=== PATIENT | female | born 1960 | race African-American/Black ===

== ENCOUNTER 2018-01-09 19:36 | Inpatient (IN) | payer MEDICARE, MEDICAID ==
[~2018-01-09] VITALS: Ht 162.6 cm; Wt 67.6 kg
[~2018-01-09 19:36] MED LIST: Fluticasone Propionate BOTHNSTRLS; LIDO700A TP; Lidocaine Cream TOP; MONT5TAB13 PO
[2018-01-09] MEDS ORDERED: IPRATROPIUM BROMIDE (0.02%) 0.5MG/2.5ML NEB HHN STA (19:40)
[2018-01-09] MEDS ORDERED: ALBUTEROL (0.083%) 2.5MG/3ML NEB HHN STA (19:40)
[2018-01-09] MEDS ORDERED: METHYLPREDNISOLONE SOD SUCC 125 MG/2 ML VIAL IV STA (19:40)
[2018-01-09] MEDS ORDERED: IPRATROPIUM BROMIDE (0.02%) 0.5MG/2.5ML NEB ONE (19:48)
[2018-01-09] MEDS ORDERED: IPRATROPIUM/ALBUTEROL 0.5-3(2.5)MG/3ML NEB ONE (19:49)
[2018-01-09] MEDS ORDERED: ONDANSETRON HCL 4MG/2ML INJ IV STA (20:06)
[2018-01-09] MEDS ORDERED: MORPHINE SULFATE 4 MG/ML CPJ (NOT FOR IM USE) IV STA (20:06)
[2018-01-09] MEDS ORDERED: NITROGLYCERIN 0.4MG TABLET SL SL PRN (20:15)
[2018-01-09] MEDS ORDERED: MAGNESIUM 2 G PREMIX 50 ML IV ONE (20:15)
[2018-01-09] MEDS ORDERED: NITROGLYCERIN OINT 1GM/INCH UDPKT TD ONE (20:15)
[2018-01-09 20:18] LABS: HEMATOCRIT. 44.9 % (36.0-48.0); HEMOGLOBIN. 14.6 g/dL (12.0-16.0); MEAN CORPUSCULAR VOLUME 92.3 fL (81.0-99.0); MEAN PLATELET VOLUME 6.5 fl (7.4-10.4); PLATELET 324 x1000/uL (130-400); RED BLOOD CELL COUNT 4.87 mill/uL (4.2-5.4); RED CELL DISTRIBUTION WIDTH 16.4 % (11.6-14.6)
[2018-01-09 20:27] LABS: CHLORIDE 95 mEq/L (98-107)
[2018-01-09 20:51] LABS: PLATELET ESTIMATE NORMAL
[2018-01-09] MEDS ORDERED: PIPERACILLIN/TAZ 3.375G PREMIX 50 ML IV NR (21:30)
[2018-01-09] MEDS ORDERED: PIPERACILLIN/TAZOBACTAM 3.375GM/50ML PREMIX IV ONE (21:30)
[2018-01-09 21:34] LABS: BG BASE EXCESS 0.8 mmol/L (-2.0-2.0); BG BILEVEL POS AIRWAY PRESSURE 18/7; BG CARBOXYHEMOGLOBIN 0.6 % (0.5-1.5); BG DEOXYHEMOGLOBIN 0.1 % (0.0-5.0); BG FRACTION INSPIRED OXYGEN 100; BG HCO3 ACT 31.4 mmol/L (22.0-26.0); BG METHEMOGLOBIN 0.7 % (0.0-1.5); BG OXYGEN SATURATION 99.9 % (92.0-98.5); BG OXYHEMOGLOBIN 98.6 % (94.0-97.0); BG PCO2 80.6 mmHg (35.0-45.0); BG PH 7.209 (7.350-7.450); BG PO2 574.5 mmHg (75.0-100.0); BG SAMPLE SITE RIGHT BRACHIAL; BG TOTAL HEMOGLOBIN 15.4 g/dL (12.0-18.0); BG VENT MODE MASK - BIPAP; BG VENT RATE 20 set
[2018-01-09] MEDS ORDERED: HYDROCODONE/ACETAMINOPHEN 5/325MG TABLET PO PRN (23:45)
[2018-01-09] MEDS ORDERED: PIPERACILLIN/TAZ 3.375G PREMIX 50 ML IV SCH (23:45)
[2018-01-09] MEDS ORDERED: GUAIFENESIN 200MG/10ML SUGAR FREE UDC PO PRN (23:45)
[2018-01-09] MEDS ORDERED: CLONIDINE 0.1MG TABLET PO PRN (23:45)
[2018-01-09] MEDS ORDERED: IPRATROPIUM/ALBUTEROL 0.5-3(2.5)MG/3ML NEB INH PRN (23:45)
[2018-01-09] MEDS ORDERED: NA PHOS,M-B/NA PHOS,DI-BA ENEMA 118ML PR PRN (23:45)
[2018-01-09] MEDS ORDERED: ACETAMINOPHEN 650MG SUPP PR PRN (23:45)
[2018-01-09] MEDS ORDERED: DOCUSATE SODIUM 100MG CAPSULE PO PRN (23:45)
[2018-01-10] VITALS (49 sets, daily range): BP systolic 98–168; BP diastolic 55–118
[2018-01-10] MEDS ORDERED: HYDRALAZINE 20MG/ML VIAL IV PRN
[2018-01-10] MEDS ORDERED: DEXTROSE 50% WATER 50ML SYRINGE IV PRN
[2018-01-10] MEDS: METHYLPREDNISOLONE SOD SUCC 125 MG/2 ML VIAL IV SCH ×2 (00:53→08:59)
[2018-01-10] MEDS: FUROSEMIDE 40MG/4ML VIAL IVP SCH ×2 (00:53→08:59)
[2018-01-10 01:00] LABS: D-DIMER 0.57 mg/L FEU (<0.50); PROTHROMBIN TIME 9.9 sec (9.1-11.1)
[2018-01-10] MEDS: HYDROCODONE/ACETAMINOPHEN 10/325MG TABLET PO PRN (01:01)
[2018-01-10 02:55] LABS: BG BASE EXCESS 1.9 mmol/L (-2.0-2.0); BG CARBOXYHEMOGLOBIN 0.6 % (0.5-1.5); BG DEOXYHEMOGLOBIN 0.6 % (0.0-5.0); BG FRACTION INSPIRED OXYGEN 50; BG HCO3 ACT 29.2 mmol/L (22.0-26.0); BG METHEMOGLOBIN 0.5 % (0.0-1.5); BG OXYGEN SATURATION 99.4 % (92.0-98.5); BG OXYHEMOGLOBIN 98.3 % (94.0-97.0); BG PCO2 55.6 mmHg (35.0-45.0); BG PH 7.338 (7.350-7.450); BG PIP 26 cmH2O; BG SAMPLE SITE LEFT RADIAL; BG TIDAL VOLUME(mL) 500 mL; BG VENT MODE VENT - A/C; BG VENT RATE 18 set
[2018-01-10] MEDS ORDERED: METHYLPREDNISOLONE SOD SUCC 125 MG/2 ML VIAL IV SCH (03:00)
[2018-01-10] MEDS: PROPOFOL 10MG/ML 100ML 100 ML IV PRN ×4 (03:49→20:19)
[2018-01-10] MEDS: DEXT 5%/0.45% NACL 1000ML 1,000 ML IV SCH ×2 (03:50→18:31)
[2018-01-10] MEDS: ENOXAPARIN 80MG/0.8ML SYR SUBCUT SCH ×2 (03:50→14:09)
[2018-01-10 04:48] LABS: CLARITY URINE CLEAR (CLEAR); COLOR URINE YELLOW (YELLOW); KETONES URINE NEGATIVE (NEGATIVE); LEUKOCYTE ESTERASE URINE NEGATIVE (NEGATIVE); NITRITE URINE NEGATIVE (NEGATIVE); OCCULT BLOOD URINE TRACE (NEGATIVE); PH URINE 6.5 (4.5-8.0); PROTEIN URINE NEGATIVE (NEGATIVE); SPECIFIC GRAVITY URINE 1.007 (1.005-1.030); UROBILINOGEN URINE 0.2 E.U./dL (0.2-1.0)
[2018-01-10] MEDS: SODIUM CHLORIDE 0.9% INJ 3ML FLUSH IVF SCH ×3 (05:06→21:05)
[2018-01-10] MEDS: IPRATROPIUM/ALBUTEROL 0.5-3(2.5)MG/3ML NEB INH SCH ×5 (05:08→20:32)
[2018-01-10 05:11] LABS: *AMPHETAMINES SCREEN URINE NEGATIVE (NEGATIVE); *BARBITURATES SCREEN URINE NEGATIVE (NEGATIVE); *BENZODIAZEPINES SCREEN URINE NEGATIVE (NEGATIVE); *COCAINE SCREEN URINE NEGATIVE (NEGATIVE)
[2018-01-10 05:12] LABS: CANNABINOID URINE SCREEN NEGATIVE (NEGATIVE); METHADONE URINE SCREEN NEGATIVE (NEGATIVE); OPIATES URINE SCREEN PRESUMTIVE POSITIVE (NEGATIVE); PHENCYCLIDINE URINE SCREEN NEGATIVE (NEGATIVE)
[2018-01-10] MEDS: PIPERACILLIN/TAZ 3.375G PREMIX 50 ML IV SCH ×3 (05:16→20:59)
[2018-01-10 05:45] LABS: CHLORIDE 91 mEq/L (98-107)
[2018-01-10 05:48] LABS: HEMATOCRIT. 41.8 % (36.0-48.0); HEMOGLOBIN. 13.9 g/dL (12.0-16.0); MEAN CORPUSCULAR HEMOGLOBIN 30.6 pg (28.0-32.0); MEAN CORPUSCULAR VOLUME 91.9 fL (81.0-99.0); MEAN PLATELET VOLUME 6.8 fl (7.4-10.4); PLATELET 306 x1000/uL (130-400); RED BLOOD CELL COUNT 4.54 mill/uL (4.2-5.4); RED CELL DISTRIBUTION WIDTH 16.6 % (11.6-14.6)
[2018-01-10 05:56] LABS: CREATINE KINASE 377 IU/L (26-192); LDL CHOLESTEROL 115 mg/dL (5-100)
[2018-01-10 05:58] LABS: HDL CHOLESTEROL 81 mg/dL (40-59)
[2018-01-10] MEDS ORDERED: IPRATROPIUM/ALBUTEROL 0.5-3(2.5)MG/3ML NEB INH SCH (06:00)
[2018-01-10 06:01] LABS: CREATINE KINASE MB FRACTION 7.5 ng/mL (0.5-3.6)
[2018-01-10] MEDS: BLOOD SUGAR DIAGNOSTIC STRIP TEST SCH ×4 (07:50→23:59)
[2018-01-10 08:00] LABS: BG BASE EXCESS 6.2 mmol/L (-2.0-2.0); BG FRACTION INSPIRED OXYGEN 50; BG HCO3 ACT 31.9 mmol/L (22.0-26.0); BG METHEMOGLOBIN 0.2 % (0.0-1.5); BG OXYHEMOGLOBIN 98.8 % (94.0-97.0); BG PCO2 49.8 mmHg (35.0-45.0); BG PH 7.424 (7.350-7.450); BG PO2 175.8 mmHg (75.0-100.0); BG SAMPLE SITE RIGHT RADIAL; BG TIDAL VOLUME(mL) 500 mL; BG TOTAL HEMOGLOBIN 14.1 g/dL (12.0-18.0); BG VENT MODE VENT - A/C; BG VENT RATE 18 set
[2018-01-10 08:07] LABS: PLATELET ESTIMATE NORMAL
[2018-01-10] MEDS: INSULIN LISPRO 100 UNITS/ML SUBCUT SCH ×3 (09:01→18:32)
[2018-01-10] MEDS ORDERED: SUCCINYLCHOLINE CHLORIDE 200MG/10ML IV ONE (12:59)
[2018-01-10] MEDS ORDERED: ETOMIDATE 2MG/ML 10ML VIAL IV ONE (12:59)
[2018-01-10 15:53] LABS: CREATINE KINASE MB FRACTION 2.4 ng/mL (0.5-3.6)
[2018-01-10] MEDS: METOPROLOL TARTRATE 25MG TABLET PO SCH ×2 (16:54→20:19)
[2018-01-10] MEDS: METHYLPREDNISOLONE SOD SUCC 40 MG/ML VIAL IV SCH (18:33)
[2018-01-11] VITALS (50 sets, daily range): BP systolic 84–166; BP diastolic 44–100
[2018-01-11] MEDS: METHYLPREDNISOLONE SOD SUCC 40 MG/ML VIAL IV SCH ×3 (00:05→16:00)
[2018-01-11] MEDS: INSULIN LISPRO 100 UNITS/ML SUBCUT SCH ×4 (00:07→17:24)
[2018-01-11] MEDS: IPRATROPIUM/ALBUTEROL 0.5-3(2.5)MG/3ML NEB INH SCH ×6 (00:25→21:10)
[2018-01-11] MEDS: PROPOFOL 10MG/ML 100ML 100 ML IV PRN ×4 (00:35→19:59)
[2018-01-11] MEDS: ENOXAPARIN 80MG/0.8ML SYR SUBCUT SCH ×2 (02:33→15:59)
[2018-01-11] MEDS: SODIUM CHLORIDE 0.9% INJ 3ML FLUSH IVF SCH ×3 (04:48→21:33)
[2018-01-11] MEDS: PIPERACILLIN/TAZ 3.375G PREMIX 50 ML IV SCH ×3 (04:59→21:33)
[2018-01-11] MEDS ORDERED: PROPOFOL 10MG/ML 100ML 100 ML IV PRN (05:00)
[2018-01-11] MEDS: BLOOD SUGAR DIAGNOSTIC STRIP TEST SCH ×3 (06:28→17:25)
[2018-01-11 06:29] LABS: HEMATOCRIT. 40.3 % (36.0-48.0); HEMOGLOBIN. 13.2 g/dL (12.0-16.0); MEAN CORPUSCULAR HEMOGLOBIN 30.3 pg (28.0-32.0); MEAN CORPUSCULAR VOLUME 92.5 fL (81.0-99.0); MEAN PLATELET VOLUME 6.8 fl (7.4-10.4); PLATELET 266 x1000/uL (130-400); RED BLOOD CELL COUNT 4.36 mill/uL (4.2-5.4)
[2018-01-11] MEDS: DEXT 5%/0.45% NACL 1000ML 1,000 ML IV SCH ×3 (06:40→22:02)
[2018-01-11 07:19] LABS: PLATELET ESTIMATE NORMAL
[2018-01-11 07:30] LABS: BG BASE EXCESS 7.4 mmol/L (-2.0-2.0); BG CARBOXYHEMOGLOBIN 0.5 % (0.5-1.5); BG DEOXYHEMOGLOBIN 1.1 % (0.0-5.0); BG HCO3 ACT 32.3 mmol/L (22.0-26.0); BG METHEMOGLOBIN 0.3 % (0.0-1.5); BG OXYGEN SATURATION 98.9 % (92.0-98.5); BG OXYHEMOGLOBIN 98.1 % (94.0-97.0); BG PCO2 46.6 mmHg (35.0-45.0); BG PH 7.459 (7.350-7.450); BG SAMPLE SITE RIGHT BRACHIAL; BG TIDAL VOLUME(mL) 500 mL; BG TOTAL HEMOGLOBIN 13.8 g/dL (12.0-18.0); BG VENT MODE VENT - A/C; BG VENT RATE 18 set
[2018-01-11 07:39] LABS: CHLORIDE 98 mEq/L (98-107)
[2018-01-11] MEDS: METOPROLOL TARTRATE 25MG TABLET PO SCH ×2 (09:00→21:00)
[2018-01-11] MEDS: FUROSEMIDE 40MG/4ML VIAL IVP SCH (09:00)
[2018-01-11] MEDS: HYDROCODONE/ACETAMINOPHEN 10/325MG TABLET PO PRN ×2 (11:06→15:58)
[2018-01-11] MEDS: THEOPHYLLINE ANHYDROUS 80 MG/15 ML 120ML PO SCH (17:26)
[2018-01-12] VITALS (50 sets, daily range): BP systolic 65–159; BP diastolic 37–101
[2018-01-12] MEDS: IPRATROPIUM/ALBUTEROL 0.5-3(2.5)MG/3ML NEB INH SCH ×6 (00:40→21:00)
[2018-01-12] MEDS: METHYLPREDNISOLONE SOD SUCC 40 MG/ML VIAL IV SCH ×3 (00:42→18:25)
[2018-01-12] MEDS: BLOOD SUGAR DIAGNOSTIC STRIP TEST SCH ×4 (00:42→18:26)
[2018-01-12] MEDS: THEOPHYLLINE ANHYDROUS 80 MG/15 ML 120ML PO SCH ×5 (00:42→23:52)
[2018-01-12] MEDS: INSULIN LISPRO 100 UNITS/ML SUBCUT SCH ×4 (00:44→18:27)
[2018-01-12] MEDS: PROPOFOL 10MG/ML 100ML 100 ML IV PRN ×4 (01:09→22:42)
[2018-01-12] MEDS: PHENOL/SODIUM PHENOLATE 1.4% SRPAY 177ML MM PRN ×2 (02:18→07:42)
[2018-01-12] MEDS: ENOXAPARIN 80MG/0.8ML SYR SUBCUT SCH ×2 (03:48→14:27)
[2018-01-12] MEDS: HYDROCODONE/ACETAMINOPHEN 10/325MG TABLET PO PRN ×4 (03:56→19:00)
[2018-01-12] MEDS: PIPERACILLIN/TAZ 3.375G PREMIX 50 ML IV SCH ×3 (06:08→22:32)
[2018-01-12] MEDS: SODIUM CHLORIDE 0.9% INJ 3ML FLUSH IVF SCH ×3 (06:08→22:32)
[2018-01-12] MEDS: METOPROLOL TARTRATE 25MG TABLET PO SCH ×2 (08:19→21:00)
[2018-01-12] MEDS: FUROSEMIDE 40MG/4ML VIAL IVP SCH (08:19)
[2018-01-12] MEDS: MAGNESIUM/ALUMINUM HYDROXIDE/SIMETHICONE 30ML UDC PO PRN (08:19)
[2018-01-12 10:01] LABS: BG BASE EXCESS 11.4 mmol/L (-2.0-2.0); BG CARBOXYHEMOGLOBIN 0.3 % (0.5-1.5); BG DEOXYHEMOGLOBIN 1.5 % (0.0-5.0); BG FRACTION INSPIRED OXYGEN 45; BG METHEMOGLOBIN 0.2 % (0.0-1.5); BG OXYGEN SATURATION 98.5 % (92.0-98.5); BG PCO2 53.3 mmHg (35.0-45.0); BG PH 7.459 (7.350-7.450); BG SAMPLE SITE LEFT RADIAL; BG TIDAL VOLUME(mL) 500 mL; BG TOTAL HEMOGLOBIN 11.8 g/dL (12.0-18.0); BG VENT MODE VENT - A/C; BG VENT RATE 18 set
[2018-01-12] MEDS: BUDESONIDE 0.5MG/2ML NEB HHN SCH ×2 (12:39→21:00)
[2018-01-12] MEDS: DEXT 5%/0.45% NACL 1000ML 1,000 ML IV SCH (13:27)
[2018-01-12 15:32] LABS: HEMATOCRIT. 31.3 % (36.0-48.0); HEMOGLOBIN. 10.3 g/dL (12.0-16.0); MEAN CORPUSCULAR HEMOGLOBIN 30.3 pg (28.0-32.0); MEAN CORPUSCULAR VOLUME 92.3 fL (81.0-99.0); PLATELET 217 x1000/uL (130-400); RED BLOOD CELL COUNT 3.39 mill/uL (4.2-5.4); RED CELL DISTRIBUTION WIDTH 16.2 % (11.6-14.6)
[2018-01-12 15:50] LABS: CHLORIDE 96 mEq/L (98-107)
[2018-01-12 16:24] LABS: PLATELET ESTIMATE NORMAL
[2018-01-12 20:11] LABS: HEMATOCRIT. 28.1 % (36.0-48.0); HEMOGLOBIN. 9.5 g/dL (12.0-16.0); MEAN CORPUSCULAR VOLUME 91.6 fL (81.0-99.0); MEAN PLATELET VOLUME 6.9 fl (7.4-10.4); PLATELET 198 x1000/uL (130-400); RED BLOOD CELL COUNT 3.07 mill/uL (4.2-5.4); RED CELL DISTRIBUTION WIDTH 15.9 % (11.6-14.6)
[2018-01-12 20:18] LABS: INR 1.1; PARTIAL THROMBOPLASTIN TIME 29.5 sec (23.4-31.0); PROTHROMBIN TIME 10.7 sec (9.1-11.1)
[2018-01-12 20:31] LABS: PLATELET ESTIMATE NORMAL
[2018-01-12] MEDS ORDERED: FUROSEMIDE 20MG/2ML VIAL IVP NR (20:45)
[2018-01-12] MEDS ORDERED: ALBUMIN HUMAN 25GM/100ML (25%) IV NR (21:30)
[2018-01-12] MEDS: LORAZEPAM 2MG/ML CPJ IV PRN (21:31)
[2018-01-13] VITALS (60 sets, daily range): BP systolic 73–139; BP diastolic 45–94
[2018-01-13] MEDS ORDERED: PHYTONADIONE 5 MG/5ML ORAL SYRINGE GT NR
[2018-01-13] MEDS: IPRATROPIUM/ALBUTEROL 0.5-3(2.5)MG/3ML NEB INH SCH ×5 (00:10→15:50)
[2018-01-13] MEDS: INSULIN LISPRO 100 UNITS/ML SUBCUT SCH ×4 (00:49→17:23)
[2018-01-13] MEDS: BLOOD SUGAR DIAGNOSTIC STRIP TEST SCH ×4 (00:53→17:12)
[2018-01-13] MEDS ORDERED: ENOXAPARIN 60MG/0.6ML SYR SUBCUT SCH (02:00)
[2018-01-13 02:08] LABS: BG BASE EXCESS 14.5 mmol/L (-2.0-2.0); BG CARBOXYHEMOGLOBIN 0.3 % (0.5-1.5); BG DEOXYHEMOGLOBIN 2.2 % (0.0-5.0); BG FRACTION INSPIRED OXYGEN 40; BG HCO3 ACT 39.5 mmol/L (22.0-26.0); BG OXYGEN SATURATION 97.8 % (92.0-98.5); BG OXYHEMOGLOBIN 97.5 % (94.0-97.0); BG PO2 105.7 mmHg (75.0-100.0); BG SAMPLE SITE LEFT RADIAL; BG TIDAL VOLUME(mL) 500 mL; BG TOTAL HEMOGLOBIN 8.7 g/dL (12.0-18.0); BG VENT MODE VENT - A/C; BG VENT RATE 14 set
[2018-01-13] MEDS: METOPROLOL TARTRATE 25MG TABLET PO SCH ×2 (02:16→21:14)
[2018-01-13] MEDS: PROPOFOL 10MG/ML 100ML 100 ML IV PRN ×4 (02:37→23:38)
[2018-01-13] MEDS: HYDROCODONE/ACETAMINOPHEN 10/325MG TABLET PO PRN ×4 (03:02→20:55)
[2018-01-13] MEDS ORDERED: ALBUMIN HUMAN 25GM/100ML (25%) IV NR (04:00)
[2018-01-13] MEDS: SODIUM CHLORIDE 0.9% INJ 3ML FLUSH IVF SCH ×3 (06:00→22:00)
[2018-01-13] MEDS: THEOPHYLLINE ANHYDROUS 80 MG/15 ML 120ML PO SCH ×4 (06:46→23:36)
[2018-01-13] MEDS: PIPERACILLIN/TAZ 3.375G PREMIX 50 ML IV SCH (06:46)
[2018-01-13] MEDS ORDERED: LIDOCAINE HCL 1% 20ML VIAL (Pyxis) INJ ONE (07:50)
[2018-01-13 08:04] LABS: BG BASE EXCESS 13.8 mmol/L (-2.0-2.0); BG CARBOXYHEMOGLOBIN 0.9 % (0.5-1.5); BG DEOXYHEMOGLOBIN 1.5 % (0.0-5.0); BG HCO3 ACT 38.3 mmol/L (22.0-26.0); BG METHEMOGLOBIN 0.2 % (0.0-1.5); BG OXYGEN SATURATION 98.5 % (92.0-98.5); BG OXYHEMOGLOBIN 97.4 % (94.0-97.0); BG PCO2 50.6 mmHg (35.0-45.0); BG PH 7.497 (7.350-7.450); BG PO2 123.2 mmHg (75.0-100.0); BG SAMPLE SITE LEFT RADIAL; BG TIDAL VOLUME(mL) 500 mL; BG TOTAL HEMOGLOBIN 6.1 g/dL (12.0-18.0); BG VENT MODE VENT - A/C; BG VENT RATE 14 set
[2018-01-13] MEDS: BUDESONIDE 0.5MG/2ML NEB HHN SCH (08:18)
[2018-01-13 09:12] LABS: CHLORIDE 92 mEq/L (98-107)
[2018-01-13 09:21] LABS: T4 FREE 0.74 ng/dL (0.76-1.46)
[2018-01-13 09:26] LABS: LDL CHOLESTEROL 78 mg/dL (5-100)
[2018-01-13 09:27] LABS: HDL CHOLESTEROL 28 mg/dL (40-59)
[2018-01-13 09:49] LABS: MEAN CORPUSCULAR VOLUME 91.3 fL (81.0-99.0); PLATELET 182 x1000/uL (130-400); RED BLOOD CELL COUNT 2.19 mill/uL (4.2-5.4); RED CELL DISTRIBUTION WIDTH 15.8 % (11.6-14.6)
[2018-01-13 09:51] LABS: HEMOGLOBIN 6.8 g/dL (12.0-16.0)
[2018-01-13] MEDS: LORAZEPAM 2MG/ML CPJ IV PRN (10:01)
[2018-01-13] MEDS: FUROSEMIDE 40MG/4ML VIAL IVP SCH (10:08)
[2018-01-13] MEDS: METHYLPREDNISOLONE SOD SUCC 40 MG/ML VIAL IV SCH ×2 (10:08→17:22)
[2018-01-13] MEDS: PANTOPRAZOLE SODIUM 40 MG/VIAL IV SCH (10:57)
[2018-01-13] MEDS: CEFTRIAXONE 1 G PREMIX 50 ML IV SCH (16:18)
[2018-01-13] MEDS: ACETAMINOPHEN 325MG TABLET PO PRN (16:34)
[2018-01-13 18:41] LABS: HEMOGLOBIN 7.2 g/dL (12.0-16.0)
[2018-01-13 18:50] LABS: HEMATOCRIT 20.9 % (36.0-48.0)
[2018-01-13] MEDS ORDERED: IOHEXOL-350 100 ML BOTTLE ONE (18:57)
[2018-01-13] MEDS ORDERED: PHYTONADIONE 10 MG/10 ML ORALSYR PO NR ×2 (23:30)
[2018-01-14] VITALS (49 sets, daily range): BP systolic 80–139; BP diastolic 45–76
[2018-01-14] MEDS: BLOOD SUGAR DIAGNOSTIC STRIP TEST SCH ×5 (00:05→23:59)
[2018-01-14] MEDS: INSULIN LISPRO 100 UNITS/ML SUBCUT SCH ×4 (00:08→17:26)
[2018-01-14 02:04] LABS: HEMATOCRIT 24.8 % (36.0-48.0); HEMOGLOBIN 8.6 g/dL (12.0-16.0)
[2018-01-14 02:16] LABS: CREATINE KINASE MB FRACTION 1.2 ng/mL (0.5-3.6)
[2018-01-14] MEDS: HYDROCODONE/ACETAMINOPHEN 10/325MG TABLET PO PRN ×2 (05:12→14:45)
[2018-01-14] MEDS: SODIUM CHLORIDE 0.9% INJ 3ML FLUSH IVF SCH ×3 (06:00→21:02)
[2018-01-14] MEDS: THEOPHYLLINE ANHYDROUS 80 MG/15 ML 120ML PO SCH ×3 (06:59→17:25)
[2018-01-14] MEDS: PROPOFOL 10MG/ML 100ML 100 ML IV PRN ×3 (07:00→21:15)
[2018-01-14 07:05] LABS: CREATINE KINASE 624 IU/L (26-192)
[2018-01-14 07:07] LABS: CREATINE KINASE MB FRACTION < 1.0 ng/mL (0.5-3.6)
[2018-01-14 07:56] LABS: HEMATOCRIT. 25.1 % (36.0-48.0); HEMOGLOBIN. 8.7 g/dL (12.0-16.0); MEAN CORPUSCULAR HEMOGLOBIN 31.2 pg (28.0-32.0); MEAN CORPUSCULAR VOLUME 89.4 fL (81.0-99.0); MEAN PLATELET VOLUME 7.9 fl (7.4-10.4); PLATELET 148 x1000/uL (130-400); RED BLOOD CELL COUNT 2.81 mill/uL (4.2-5.4); RED CELL DISTRIBUTION WIDTH 15.2 % (11.6-14.6)
[2018-01-14 08:14] LABS: BG BASE EXCESS 19.2 mmol/L (-2.0-2.0); BG CARBOXYHEMOGLOBIN 0.3 % (0.5-1.5); BG DEOXYHEMOGLOBIN 2.3 % (0.0-5.0); BG FRACTION INSPIRED OXYGEN 40; BG HCO3 ACT 44.3 mmol/L (22.0-26.0); BG METHEMOGLOBIN 0.3 % (0.0-1.5); BG OXYGEN SATURATION 97.7 % (92.0-98.5); BG OXYHEMOGLOBIN 97.1 % (94.0-97.0); BG PCO2 55.8 mmHg (35.0-45.0); BG PH 7.518 (7.350-7.450); BG PO2 106.8 mmHg (75.0-100.0); BG SAMPLE SITE LEFT RADIAL; BG TIDAL VOLUME(mL) 500 mL; BG VENT MODE VENT - A/C; BG VENT RATE 14 set
[2018-01-14] MEDS: IPRATROPIUM/ALBUTEROL 0.5-3(2.5)MG/3ML NEB INH SCH ×5 (08:49→23:55)
[2018-01-14] MEDS: BUDESONIDE 0.5MG/2ML NEB HHN SCH ×2 (08:50→20:07)
[2018-01-14] MEDS: METOPROLOL TARTRATE 25MG TABLET PO SCH ×2 (09:00→21:00)
[2018-01-14 09:21] LABS: CHLORIDE 93 mEq/L (98-107)
[2018-01-14] MEDS: PANTOPRAZOLE SODIUM 40 MG/VIAL IV SCH (09:50)
[2018-01-14] MEDS: METHYLPREDNISOLONE SOD SUCC 40 MG/ML VIAL IV SCH ×2 (09:50→17:26)
[2018-01-14 09:59] LABS: PLATELET ESTIMATE NORMAL
[2018-01-14] MEDS ORDERED: PROPOFOL 10MG/ML 100ML 100 ML IV PRN (10:37)
[2018-01-14] MEDS: MORPHINE SULFATE 4 MG/ML CPJ (NOT FOR IM USE) IV PRN (11:23)
[2018-01-14] MEDS: LORAZEPAM 2MG/ML CPJ IV PRN (14:45)
[2018-01-14] MEDS: CEFTRIAXONE 1 G PREMIX 50 ML IV SCH (15:56)
[2018-01-15] VITALS (46 sets, daily range): BP systolic 87–140; BP diastolic 21–88
[2018-01-15] MEDS: THEOPHYLLINE ANHYDROUS 80 MG/15 ML 120ML PO SCH ×4 (00:03→17:15)
[2018-01-15] MEDS: INSULIN LISPRO 100 UNITS/ML SUBCUT SCH ×4 (00:05→17:14)
[2018-01-15] MEDS: PROPOFOL 10MG/ML 100ML 100 ML IV PRN ×3 (02:36→10:15)
[2018-01-15] MEDS: IPRATROPIUM/ALBUTEROL 0.5-3(2.5)MG/3ML NEB INH SCH ×5 (04:20→20:14)
[2018-01-15] MEDS: BLOOD SUGAR DIAGNOSTIC STRIP TEST SCH ×3 (05:55→17:10)
[2018-01-15] MEDS: SODIUM CHLORIDE 0.9% INJ 3ML FLUSH IVF SCH ×3 (05:56→21:10)
[2018-01-15] MEDS: MORPHINE SULFATE 4 MG/ML CPJ (NOT FOR IM USE) IV PRN ×2 (07:41→21:58)
[2018-01-15 08:21] LABS: BG BASE EXCESS 18.8 mmol/L (-2.0-2.0); BG CARBOXYHEMOGLOBIN 0.3 % (0.5-1.5); BG DEOXYHEMOGLOBIN 2.5 % (0.0-5.0); BG FRACTION INSPIRED OXYGEN 40; BG HCO3 ACT 45.2 mmol/L (22.0-26.0); BG METHEMOGLOBIN 0.1 % (0.0-1.5); BG OXYGEN SATURATION 97.5 % (92.0-98.5); BG OXYHEMOGLOBIN 97.1 % (94.0-97.0); BG PCO2 62.7 mmHg (35.0-45.0); BG PEEP (cmH2O) 0 cmH2O; BG PH 7.476 (7.350-7.450); BG PO2 103.5 mmHg (75.0-100.0); BG SAMPLE SITE LEFT RADIAL; BG TIDAL VOLUME(mL) 500 mL; BG TOTAL HEMOGLOBIN 10.8 g/dL (12.0-18.0); BG VENT MODE VENT - A/C; BG VENT RATE 14 set
[2018-01-15] MEDS: BUDESONIDE 0.5MG/2ML NEB HHN SCH (08:58)
[2018-01-15] MEDS: METOPROLOL TARTRATE 25MG TABLET PO SCH ×2 (09:00→21:10)
[2018-01-15] MEDS: METHYLPREDNISOLONE SOD SUCC 40 MG/ML VIAL IV SCH (09:21)
[2018-01-15] MEDS: PANTOPRAZOLE SODIUM 40 MG/VIAL IV SCH (09:21)
[2018-01-15] MEDS ORDERED: PHYTONADIONE 5 MG/5ML ORAL SYRINGE PO SCH (10:00)
[2018-01-15] MEDS ORDERED: SODIUM CHLORIDE 10% FOR INH 15ML VIAL NEB INH SCH (11:00)
[2018-01-15 11:32] LABS: HEMATOCRIT. 24.6 % (36.0-48.0); HEMOGLOBIN. 8.4 g/dL (12.0-16.0); MEAN CORPUSCULAR HEMOGLOBIN 31.1 pg (28.0-32.0); MEAN CORPUSCULAR VOLUME 91.2 fL (81.0-99.0); MEAN PLATELET VOLUME 8.1 fl (7.4-10.4); PLATELET 189 x1000/uL (130-400)
[2018-01-15] MEDS: LORAZEPAM 2MG/ML CPJ IV PRN ×2 (11:35→20:40)
[2018-01-15] MEDS: HYDROCODONE/ACETAMINOPHEN 5/325MG TABLET PO PRN (11:36)
[2018-01-15 11:45] LABS: CHLORIDE 93 mEq/L (98-107)
[2018-01-15 11:50] LABS: THEOPHYLLINE 13.2 ug/mL (10-20)
[2018-01-15 11:55] LABS: PLATELET ESTIMATE NORMAL
[2018-01-15] MEDS: AZITHROMYCIN 500 MG in DEXT 5% WATER 250 ML IV SCH (12:55)
[2018-01-15] MEDS: METRONIDAZOLE 500 MG PREMIX 100 ML IV SCH ×2 (12:55→20:40)
[2018-01-15] MEDS: FENTANYL CITRATE/PF 500 MCG in SODIUM CHLORIDE 0.9% 40 ML IV PRN ×3 (13:38→23:47)
[2018-01-15] MEDS: CEFTRIAXONE 1 G PREMIX 50 ML IV SCH (16:57)
[2018-01-16] VITALS (49 sets, daily range): BP systolic 87–145; BP diastolic 36–91
[2018-01-16] MEDS: IPRATROPIUM/ALBUTEROL 0.5-3(2.5)MG/3ML NEB INH SCH ×6 (00:03→20:31)
[2018-01-16] MEDS: BLOOD SUGAR DIAGNOSTIC STRIP TEST SCH ×5 (00:16→23:25)
[2018-01-16] MEDS: THEOPHYLLINE ANHYDROUS 80 MG/15 ML 120ML PO SCH ×4 (00:26→18:05)
[2018-01-16] MEDS: LORAZEPAM 2MG/ML CPJ IV PRN ×4 (02:44→22:30)
[2018-01-16] MEDS: METRONIDAZOLE 500 MG PREMIX 100 ML IV SCH ×3 (03:39→20:22)
[2018-01-16] MEDS: FENTANYL CITRATE/PF 500 MCG in SODIUM CHLORIDE 0.9% 40 ML IV PRN ×3 (04:27→17:30)
[2018-01-16 05:24] LABS: HEMATOCRIT. 23.1 % (36.0-48.0); HEMOGLOBIN. 7.8 g/dL (12.0-16.0); MEAN CORPUSCULAR HEMOGLOBIN 30.5 pg (28.0-32.0); MEAN CORPUSCULAR VOLUME 90.8 fL (81.0-99.0); MEAN PLATELET VOLUME 7.8 fl (7.4-10.4); PLATELET 226 x1000/uL (130-400); RED BLOOD CELL COUNT 2.55 mill/uL (4.2-5.4); RED CELL DISTRIBUTION WIDTH 15.4 % (11.6-14.6)
[2018-01-16 05:44] LABS: CHLORIDE 94 mEq/L (98-107)
[2018-01-16] MEDS: SODIUM CHLORIDE 0.9% INJ 3ML FLUSH IVF SCH ×3 (05:49→21:02)
[2018-01-16] MEDS: INSULIN LISPRO 100 UNITS/ML SUBCUT SCH ×5 (06:00→23:26)
[2018-01-16 07:49] LABS: PLATELET ESTIMATE NORMAL
[2018-01-16] MEDS: PANTOPRAZOLE SODIUM 40 MG/VIAL IV SCH (09:00)
[2018-01-16] MEDS: METHYLPREDNISOLONE SOD SUCC 40 MG/ML VIAL IV SCH (09:15)
[2018-01-16] MEDS: POTASSIUM CHLORIDE INJ 40 MEQ in DEXT 5% WATER 250 ML IV PRN (09:15)
[2018-01-16] MEDS: METOPROLOL TARTRATE 25MG TABLET PO SCH ×2 (09:15→20:23)
[2018-01-16] MEDS ORDERED: PROPOFOL 10MG/ML 100ML 100 ML IV PRN (10:00)
[2018-01-16] MEDS ORDERED: POTASSIUM CHLORIDE 20MEQ/PACKET PO NR (10:00)
[2018-01-16] MEDS: AZITHROMYCIN 500 MG in DEXT 5% WATER 250 ML IV SCH (12:57)
[2018-01-16] MEDS: CEFTRIAXONE 1 G PREMIX 50 ML IV SCH (16:03)
[2018-01-16] MEDS: FENTANYL CITRATE/PF 1,000 MCG in SODIUM CHLORIDE 0.9% 80 ML IV PRN (21:57)
[2018-01-17] VITALS (58 sets, daily range): BP systolic 86–149; BP diastolic 41–102
[2018-01-17] MEDS: THEOPHYLLINE ANHYDROUS 80 MG/15 ML 120ML PO SCH ×4 (00:11→19:14)
[2018-01-17] MEDS: IPRATROPIUM/ALBUTEROL 0.5-3(2.5)MG/3ML NEB INH SCH ×6 (00:28→20:20)
[2018-01-17] MEDS: METRONIDAZOLE 500 MG PREMIX 100 ML IV SCH ×3 (03:16→20:14)
[2018-01-17 05:26] LABS: HEMATOCRIT. 23.7 % (36.0-48.0); HEMOGLOBIN. 7.9 g/dL (12.0-16.0); MEAN CORPUSCULAR HEMOGLOBIN 31.1 pg (28.0-32.0); MEAN CORPUSCULAR VOLUME 92.8 fL (81.0-99.0); MEAN PLATELET VOLUME 7.5 fl (7.4-10.4); PLATELET 274 x1000/uL (130-400); RED BLOOD CELL COUNT 2.55 mill/uL (4.2-5.4); RED CELL DISTRIBUTION WIDTH 15.3 % (11.6-14.6)
[2018-01-17 05:36] LABS: CHLORIDE 98 mEq/L (98-107)
[2018-01-17] MEDS: SODIUM CHLORIDE 0.9% INJ 3ML FLUSH IVF SCH ×3 (05:58→22:00)
[2018-01-17] MEDS: INSULIN LISPRO 100 UNITS/ML SUBCUT SCH ×3 (06:00→19:13)
[2018-01-17] MEDS: BLOOD SUGAR DIAGNOSTIC STRIP TEST SCH ×3 (06:26→18:00)
[2018-01-17] MEDS: LORAZEPAM 2MG/ML CPJ IV PRN ×4 (06:26→21:09)
[2018-01-17] MEDS: FENTANYL CITRATE/PF 1,000 MCG in SODIUM CHLORIDE 0.9% 80 ML IV PRN ×2 (07:21→18:23)
[2018-01-17 07:39] LABS: PLATELET ESTIMATE NORMAL
[2018-01-17 08:00] LABS: BG FRACTION INSPIRED OXYGEN 40; BG SAMPLE SITE RIGHT RADIAL
[2018-01-17 08:06] LABS: BG PRESSURE SUPPORT 16
[2018-01-17] MEDS: METHYLPREDNISOLONE SOD SUCC 40 MG/ML VIAL IV SCH (09:15)
[2018-01-17] MEDS: PANTOPRAZOLE SODIUM 40 MG/VIAL IV SCH (09:15)
[2018-01-17] MEDS: METOPROLOL TARTRATE 25MG TABLET PO SCH ×2 (09:42→21:17)
[2018-01-17] MEDS: AZITHROMYCIN 500 MG in DEXT 5% WATER 250 ML IV SCH (12:12)
[2018-01-17] MEDS: CEFTRIAXONE 1 G PREMIX 50 ML IV SCH (16:41)
[2018-01-18] VITALS (43 sets, daily range): BP systolic 79–151; BP diastolic 35–110
[2018-01-18] MEDS: IPRATROPIUM/ALBUTEROL 0.5-3(2.5)MG/3ML NEB INH SCH ×6 (00:23→20:46)
[2018-01-18] MEDS: BLOOD SUGAR DIAGNOSTIC STRIP TEST SCH ×4 (00:47→18:34)
[2018-01-18] MEDS: THEOPHYLLINE ANHYDROUS 80 MG/15 ML 120ML PO SCH ×4 (00:57→18:37)
[2018-01-18] MEDS: HYDROCODONE/ACETAMINOPHEN 5/325MG TABLET PO PRN (01:09)
[2018-01-18] MEDS: FENTANYL CITRATE/PF 1,000 MCG in SODIUM CHLORIDE 0.9% 80 ML IV PRN (03:55)
[2018-01-18] MEDS: LORAZEPAM 2MG/ML CPJ IV PRN ×4 (04:36→21:52)
[2018-01-18] MEDS: METRONIDAZOLE 500 MG PREMIX 100 ML IV SCH ×3 (04:36→20:38)
[2018-01-18] MEDS: INSULIN LISPRO 100 UNITS/ML SUBCUT SCH ×4 (06:00→18:38)
[2018-01-18] MEDS: SODIUM CHLORIDE 0.9% INJ 3ML FLUSH IVF SCH ×3 (06:10→22:00)
[2018-01-18 07:49] LABS: BG BASE EXCESS 14.2 mmol/L (-2.0-2.0); BG FRACTION INSPIRED OXYGEN 40; BG HCO3 ACT 41.1 mmol/L (22.0-26.0); BG METHEMOGLOBIN 0.3 % (0.0-1.5); BG OXYHEMOGLOBIN 95.7 % (94.0-97.0); BG PCO2 66.1 mmHg (35.0-45.0); BG PH 7.411 (7.350-7.450); BG PO2 82.5 mmHg (75.0-100.0); BG PRESSURE SUPPORT 12; BG SAMPLE SITE LEFT RADIAL; BG TIDAL VOLUME(mL) 550 mL; BG VENT MODE VENT - SIMV; BG VENT RATE 10 set
[2018-01-18] MEDS: MORPHINE SULFATE 4 MG/ML CPJ (NOT FOR IM USE) IV PRN ×2 (07:55→21:16)
[2018-01-18] MEDS ORDERED: PROPOFOL 10MG/ML 100ML 100 ML IV PRN (09:00)
[2018-01-18] MEDS: METHYLPREDNISOLONE SOD SUCC 40 MG/ML VIAL IV SCH (09:23)
[2018-01-18] MEDS: PANTOPRAZOLE SODIUM 40 MG/VIAL IV SCH (09:23)
[2018-01-18] MEDS ORDERED: LACTULOSE 20G/30ML UDC PO NR (10:45)
[2018-01-18] MEDS: QUETIAPINE FUMARATE 25MG TABLET PO SCH (11:04)
[2018-01-18 11:15] LABS: HEMATOCRIT. 22.9 % (36.0-48.0); HEMOGLOBIN. 7.8 g/dL (12.0-16.0); MEAN CORPUSCULAR HEMOGLOBIN 31.4 pg (28.0-32.0); PLATELET 317 x1000/uL (130-400); RED BLOOD CELL COUNT 2.49 mill/uL (4.2-5.4); RED CELL DISTRIBUTION WIDTH 15.1 % (11.6-14.6)
[2018-01-18 12:17] LABS: BG BASE EXCESS 11.6 mmol/L (-2.0-2.0); BG CARBOXYHEMOGLOBIN 0.5 % (0.5-1.5); BG DEOXYHEMOGLOBIN 4.3 % (0.0-5.0); BG FRACTION INSPIRED OXYGEN 40; BG HCO3 ACT 37.8 mmol/L (22.0-26.0); BG METHEMOGLOBIN 0.4 % (0.0-1.5); BG OXYGEN SATURATION 95.7 % (92.0-98.5); BG OXYHEMOGLOBIN 94.8 % (94.0-97.0); BG PCO2 60.9 mmHg (35.0-45.0); BG PH 7.411 (7.350-7.450); BG PO2 84.9 mmHg (75.0-100.0); BG PRESSURE SUPPORT 8; BG SAMPLE SITE LEFT RADIAL; BG TOTAL HEMOGLOBIN 8.9 g/dL (12.0-18.0); BG VENT MODE VENT - CPAP
[2018-01-18] MEDS ORDERED: RACEPINEPHRINE 2.25% 0.5ML NEB VIAL HHN PRN (12:30)
[2018-01-18 12:53] LABS: CHLORIDE 101 mEq/L (98-107)
[2018-01-18 12:57] LABS: NUCLEATED RED BLOOD CELLS 7 /100 WBC
[2018-01-18 12:58] LABS: PLATELET ESTIMATE NORMAL
[2018-01-18 13:43] LABS: BG TIDAL VOLUME(mL) 550 mL; BG VENT MODE SIMV; BG VENT RATE 12 set
[2018-01-18 13:44] LABS: BG PCO2 54.5 mmHg (35.0-45.0); BG PH 7.467 (7.350-7.450)
[2018-01-18 13:45] LABS: BG BASE EXCESS 13.3 mmol/L (-2.0-2.0); BG HCO3 ACT 38.5 mmol/L (22.0-26.0); BG PO2 121.5 mmHg (75.0-100.0); BG TOTAL HEMOGLOBIN 7.8 g/dL (12.0-18.0)
[2018-01-18 13:46] LABS: BG CARBOXYHEMOGLOBIN 0.3 % (0.5-1.5); BG DEOXYHEMOGLOBIN 1.7 % (0.0-5.0); BG METHEMOGLOBIN 0.6 % (0.0-1.5); BG OXYGEN SATURATION 98.3 % (92.0-98.5); BG OXYHEMOGLOBIN 97.4 % (94.0-97.0)
[2018-01-18] MEDS: DOCUSATE SODIUM SUGAR FREE 100MG/10ML UDC NG SCH (13:58)
[2018-01-18] MEDS: METOPROLOL TARTRATE 25MG TABLET PO SCH (13:59)
[2018-01-18] MEDS: AZITHROMYCIN 500 MG in DEXT 5% WATER 250 ML IV SCH (14:50)
[2018-01-18] MEDS: CEFTRIAXONE 1 G PREMIX 50 ML IV SCH (17:38)
[2018-01-18] MEDS: BUDESONIDE 0.5MG/2ML NEB HHN SCH (20:45)
[2018-01-19] VITALS (24 sets, daily range): BP systolic 91–155; BP diastolic 54–114
[2018-01-19] MEDS: METOPROLOL TARTRATE 25MG TABLET PO SCH ×3 (00:11→20:44)
[2018-01-19] MEDS: THEOPHYLLINE ANHYDROUS 80 MG/15 ML 120ML PO SCH ×4 (00:11→18:00)
[2018-01-19] MEDS: IPRATROPIUM/ALBUTEROL 0.5-3(2.5)MG/3ML NEB INH SCH ×5 (00:21→19:58)
[2018-01-19] MEDS: BLOOD SUGAR DIAGNOSTIC STRIP TEST SCH ×5 (00:27→23:38)
[2018-01-19] MEDS: MORPHINE SULFATE 4 MG/ML CPJ (NOT FOR IM USE) IV PRN (01:29)
[2018-01-19] MEDS: METRONIDAZOLE 500 MG PREMIX 100 ML IV SCH ×3 (04:19→19:23)
[2018-01-19] MEDS: LORAZEPAM 2MG/ML CPJ IV PRN (05:31)
[2018-01-19] MEDS: INSULIN LISPRO 100 UNITS/ML SUBCUT SCH ×5 (06:00→23:39)
[2018-01-19] MEDS: SODIUM CHLORIDE 0.9% INJ 3ML FLUSH IVF SCH ×3 (06:55→22:00)
[2018-01-19 08:12] LABS: BG BASE EXCESS 9.5 mmol/L (-2.0-2.0); BG BILEVEL POS AIRWAY PRESSURE 15/5; BG CARBOXYHEMOGLOBIN 0.7 % (0.5-1.5); BG FRACTION INSPIRED OXYGEN 35; BG HCO3 ACT 34.5 mmol/L (22.0-26.0); BG METHEMOGLOBIN 0.3 % (0.0-1.5); BG PCO2 50.4 mmHg (35.0-45.0); BG PH 7.453 (7.350-7.450); BG PO2 92.7 mmHg (75.0-100.0); BG SAMPLE SITE LEFT RADIAL; BG VENT MODE MASK - BIPAP
[2018-01-19] MEDS: BUDESONIDE 0.5MG/2ML NEB HHN SCH ×2 (08:50→19:58)
[2018-01-19] MEDS: DOCUSATE SODIUM SUGAR FREE 100MG/10ML UDC NG SCH (09:00)
[2018-01-19 10:12] LABS: BG BASE EXCESS 13.2 mmol/L (-2.0-2.0); BG DEOXYHEMOGLOBIN 0.8 % (0.0-5.0); BG FRACTION INSPIRED OXYGEN 100; BG HCO3 ACT 37.7 mmol/L (22.0-26.0); BG METHEMOGLOBIN 0.6 % (0.0-1.5); BG OXYGEN SATURATION 99.2 % (92.0-98.5); BG OXYHEMOGLOBIN 98.6 % (94.0-97.0); BG PH 7.504 (7.350-7.450); BG PO2 468.9 mmHg (75.0-100.0); BG SAMPLE SITE LEFT BRACHIAL; BG TIDAL VOLUME(mL) 500 mL; BG TOTAL HEMOGLOBIN 7.8 g/dL (12.0-18.0); BG VENT MODE VENT - A/C; BG VENT RATE 16 set
[2018-01-19] MEDS: PANTOPRAZOLE SODIUM 40 MG/VIAL IV SCH (11:14)
[2018-01-19] MEDS: METHYLPREDNISOLONE SOD SUCC 40 MG/ML VIAL IV SCH (11:14)
[2018-01-19] MEDS: QUETIAPINE FUMARATE 25MG TABLET PO SCH (11:17)
[2018-01-19] MEDS ORDERED: SUCCINYLCHOLINE CHLORIDE 200MG/10ML IV ONE (12:13)
[2018-01-19] MEDS ORDERED: ETOMIDATE 2MG/ML 10ML VIAL IV ONE (12:13)
[2018-01-19] MEDS: AZITHROMYCIN 500 MG in DEXT 5% WATER 250 ML IV SCH (13:43)
[2018-01-19] MEDS: CEFTRIAXONE 1 G PREMIX 50 ML IV SCH (18:27)
[2018-01-20] VITALS (49 sets, daily range): BP systolic 98–139; BP diastolic 46–101
[2018-01-20] MEDS: IPRATROPIUM/ALBUTEROL 0.5-3(2.5)MG/3ML NEB INH SCH ×6 (00:12→21:15)
[2018-01-20] MEDS: THEOPHYLLINE ANHYDROUS 80 MG/15 ML 120ML PO SCH ×4 (00:50→19:02)
[2018-01-20] MEDS: PROPOFOL 10MG/ML 100ML 100 ML IV PRN ×3 (00:51→19:25)
[2018-01-20] MEDS: METRONIDAZOLE 500 MG PREMIX 100 ML IV SCH ×3 (03:04→22:02)
[2018-01-20] MEDS: SODIUM CHLORIDE 0.9% INJ 3ML FLUSH IVF SCH ×3 (05:22→22:02)
[2018-01-20] MEDS: INSULIN LISPRO 100 UNITS/ML SUBCUT SCH ×3 (06:00→18:00)
[2018-01-20 06:02] LABS: HEMATOCRIT. 23.1 % (36.0-48.0); HEMOGLOBIN. 7.7 g/dL (12.0-16.0); INR 1.1; MEAN CORPUSCULAR HEMOGLOBIN 30.9 pg (28.0-32.0); MEAN CORPUSCULAR VOLUME 92.7 fL (81.0-99.0); MEAN PLATELET VOLUME 7.1 fl (7.4-10.4); PARTIAL THROMBOPLASTIN TIME 25.3 sec (23.4-31.0); PLATELET 372 x1000/uL (130-400); PROTHROMBIN TIME 11.5 sec (9.1-11.1); RED BLOOD CELL COUNT 2.49 mill/uL (4.2-5.4); RED CELL DISTRIBUTION WIDTH 15.6 % (11.6-14.6)
[2018-01-20 06:03] LABS: CHLORIDE 105 mEq/L (98-107)
[2018-01-20] MEDS: BLOOD SUGAR DIAGNOSTIC STRIP TEST SCH ×3 (06:42→18:24)
[2018-01-20 07:11] LABS: BG BASE EXCESS 10.2 mmol/L (-2.0-2.0); BG CARBOXYHEMOGLOBIN 0.8 % (0.5-1.5); BG DEOXYHEMOGLOBIN 4.7 % (0.0-5.0); BG HCO3 ACT 35.3 mmol/L (22.0-26.0); BG METHEMOGLOBIN 0.5 % (0.0-1.5); BG OXYGEN SATURATION 95.2 % (92.0-98.5); BG PO2 80.4 mmHg (75.0-100.0); BG SAMPLE SITE LEFT BRACHIAL; BG TIDAL VOLUME(mL) 500 mL; BG TOTAL HEMOGLOBIN 7.7 g/dL (12.0-18.0); BG VENT MODE VENT - A/C; BG VENT RATE 12 set
[2018-01-20] MEDS: BUDESONIDE 0.5MG/2ML NEB HHN SCH ×2 (08:18→21:15)
[2018-01-20] MEDS: QUETIAPINE FUMARATE 25MG TABLET PO SCH (09:00)
[2018-01-20] MEDS: DOCUSATE SODIUM SUGAR FREE 100MG/10ML UDC NG SCH (09:00)
[2018-01-20] MEDS: METOPROLOL TARTRATE 25MG TABLET PO SCH ×2 (09:00→21:00)
[2018-01-20] MEDS: PANTOPRAZOLE SODIUM 40 MG/VIAL IV SCH ×2 (09:56→22:02)
[2018-01-20] MEDS: METHYLPREDNISOLONE SOD SUCC 40 MG/ML VIAL IV SCH (09:57)
[2018-01-20 12:08] LABS: NUCLEATED RED BLOOD CELLS 2 /100 WBC; PLATELET ESTIMATE NORMAL
[2018-01-20] MEDS: AZITHROMYCIN 500 MG in DEXT 5% WATER 250 ML IV SCH (12:48)
[2018-01-20] MEDS ORDERED: MIDAZOLAM HCL 5 MG/5 ML VIAL ONE (14:35)
[2018-01-20] MEDS ORDERED: FENTANYL CITRATE/PF 50MCG/ML 2ML VIAL ONE (14:36)
[2018-01-20 14:51] LABS: FOLIC ACID (FOLATE) SERUM 17.3 ng/mL (>5.38)
[2018-01-20] MEDS: CEFTRIAXONE 1 G PREMIX 50 ML IV SCH (19:01)
[2018-01-20] MEDS ORDERED: NOREPINEPHRINE 8 MG in DEXT 5% WATER 492 ML IV PRN (21:15)
[2018-01-20] MEDS ORDERED: NOREPINEPHRINE 4 MG in DEXT 5% WATER 246 ML IV PRN (21:30)
[2018-01-21] VITALS (76 sets, daily range): BP systolic 74–152; BP diastolic 36–87
[2018-01-21] MEDS: IPRATROPIUM/ALBUTEROL 0.5-3(2.5)MG/3ML NEB INH SCH ×6 (00:30→19:46)
[2018-01-21] MEDS: PROPOFOL 10MG/ML 100ML 100 ML IV PRN ×5 (03:27→22:51)
[2018-01-21] MEDS: THEOPHYLLINE ANHYDROUS 80 MG/15 ML 120ML PO SCH ×4 (03:29→17:38)
[2018-01-21] MEDS: METRONIDAZOLE 500 MG PREMIX 100 ML IV SCH ×3 (03:53→21:39)
[2018-01-21] MEDS: INSULIN LISPRO 100 UNITS/ML SUBCUT SCH ×4 (05:13→17:06)
[2018-01-21] MEDS: BLOOD SUGAR DIAGNOSTIC STRIP TEST SCH ×4 (05:13→17:05)
[2018-01-21] MEDS: SODIUM CHLORIDE 0.9% INJ 3ML FLUSH IVF SCH ×3 (05:13→21:41)
[2018-01-21] MEDS: METOPROLOL TARTRATE 25MG TABLET PO SCH ×2 (08:50→21:00)
[2018-01-21] MEDS: QUETIAPINE FUMARATE 25MG TABLET PO SCH (08:51)
[2018-01-21] MEDS: DOCUSATE SODIUM SUGAR FREE 100MG/10ML UDC NG SCH (08:51)
[2018-01-21] MEDS: METHYLPREDNISOLONE SOD SUCC 40 MG/ML VIAL IV SCH (09:04)
[2018-01-21] MEDS: PANTOPRAZOLE SODIUM 40 MG/VIAL IV SCH ×2 (09:04→21:40)
[2018-01-21] MEDS: BUDESONIDE 0.5MG/2ML NEB HHN SCH ×2 (09:13→13:00)
[2018-01-21] MEDS: DEXT 5%/0.9% NACL 1,000 ML IV SCH (11:05)
[2018-01-21] MEDS: AZITHROMYCIN 500 MG in DEXT 5% WATER 250 ML IV SCH (11:41)
[2018-01-21 14:33] LABS: HEMATOCRIT. 23.8 % (36.0-48.0); MEAN CORPUSCULAR VOLUME 92.3 fL (81.0-99.0); MEAN PLATELET VOLUME 6.7 fl (7.4-10.4); PLATELET 379 x1000/uL (130-400); RED BLOOD CELL COUNT 2.58 mill/uL (4.2-5.4); RED CELL DISTRIBUTION WIDTH 15.9 % (11.6-14.6)
[2018-01-21 14:37] LABS: CHLORIDE 110 mEq/L (98-107)
[2018-01-21 14:43] LABS: PHOSPHORUS 2.6 mg/dL (2.5-4.9)
[2018-01-21 14:52] LABS: INR 1.1; PARTIAL THROMBOPLASTIN TIME 23.3 sec (23.4-31.0); PROTHROMBIN TIME 11.5 sec (9.1-11.1)
[2018-01-21 16:44] LABS: PLATELET ESTIMATE NORMAL
[2018-01-22] VITALS (47 sets, daily range): BP systolic 84–153; BP diastolic 47–96
[2018-01-22] MEDS: IPRATROPIUM/ALBUTEROL 0.5-3(2.5)MG/3ML NEB INH SCH ×6 (00:36→19:51)
[2018-01-22] MEDS: BLOOD SUGAR DIAGNOSTIC STRIP TEST SCH ×5 (00:53→23:41)
[2018-01-22] MEDS: THEOPHYLLINE ANHYDROUS 80 MG/15 ML 120ML PO SCH ×5 (01:41→23:41)
[2018-01-22] MEDS: METRONIDAZOLE 500 MG PREMIX 100 ML IV SCH ×2 (05:06→12:09)
[2018-01-22] MEDS: DEXT 5%/0.9% NACL 1,000 ML IV SCH ×2 (05:07→20:16)
[2018-01-22] MEDS: PROPOFOL 10MG/ML 100ML 100 ML IV PRN ×3 (05:19→20:35)
[2018-01-22] MEDS: SODIUM CHLORIDE 0.9% INJ 3ML FLUSH IVF SCH ×3 (05:20→21:44)
[2018-01-22] MEDS: INSULIN LISPRO 100 UNITS/ML SUBCUT SCH ×5 (05:20→23:41)
[2018-01-22 05:44] LABS: BASOPHILS % 0.5 % (0.0-2.0); EOSINOPHILS % 0.8 % (0.0-5.0); HEMATOCRIT. 25.7 % (36.0-48.0); HEMOGLOBIN. 8.4 g/dL (12.0-16.0); LYMPHOCYTES % 14.8 % (20.0-50.0); MEAN CORPUSCULAR HEMOGLOBIN 30.9 pg (28.0-32.0); MEAN CORPUSCULAR VOLUME 94.6 fL (81.0-99.0); MEAN PLATELET VOLUME 6.7 fl (7.4-10.4); MONOCYTES % 8.6 % (2.0-8.0); NEUTROPHILS % 75.3 % (40.0-76.0); PLATELET 391 x1000/uL (130-400); RED BLOOD CELL COUNT 2.71 mill/uL (4.2-5.4); RED CELL DISTRIBUTION WIDTH 15.8 % (11.6-14.6)
[2018-01-22 05:50] LABS: CHLORIDE 112 mEq/L (98-107)
[2018-01-22 08:19] LABS: BG BASE EXCESS 1.6 mmol/L (-2.0-2.0); BG CARBOXYHEMOGLOBIN 0.7 % (0.5-1.5); BG DEOXYHEMOGLOBIN 2.5 % (0.0-5.0); BG FRACTION INSPIRED OXYGEN 40; BG HCO3 ACT 26.1 mmol/L (22.0-26.0); BG METHEMOGLOBIN 0.2 % (0.0-1.5); BG OXYGEN SATURATION 97.5 % (92.0-98.5); BG OXYHEMOGLOBIN 96.6 % (94.0-97.0); BG PCO2 40.4 mmHg (35.0-45.0); BG PH 7.428 (7.350-7.450); BG PO2 106.9 mmHg (75.0-100.0); BG SAMPLE SITE LEFT RADIAL; BG TIDAL VOLUME(mL) 500 mL; BG TOTAL HEMOGLOBIN 7.6 g/dL (12.0-18.0); BG VENT MODE VENT - A/C; BG VENT RATE 12 set
[2018-01-22] MEDS: FERROUS SULFATE 325MG TABLET PO SCH ×3 (08:20→17:45)
[2018-01-22] MEDS: ASCORBIC ACID 500 MG TABLET PO SCH ×3 (08:20→17:45)
[2018-01-22] MEDS: DOCUSATE SODIUM SUGAR FREE 100MG/10ML UDC NG SCH (08:37)
[2018-01-22] MEDS: QUETIAPINE FUMARATE 25MG TABLET PO SCH (09:00)
[2018-01-22] MEDS: METOPROLOL TARTRATE 25MG TABLET PO SCH ×2 (09:00→21:00)
[2018-01-22] MEDS: METHYLPREDNISOLONE SOD SUCC 40 MG/ML VIAL IV SCH (09:33)
[2018-01-22] MEDS ORDERED: PROPOFOL 10MG/ML 100ML 100 ML IV PRN (10:45)
[2018-01-22] MEDS: AZITHROMYCIN 500 MG in DEXT 5% WATER 250 ML IV SCH (12:10)
[2018-01-22] MEDS: POTASSIUM CHLORIDE INJ 40 MEQ in DEXT 5% WATER 250 ML IV PRN (14:18)
[2018-01-22] MEDS ORDERED: PROPOFOL 200MG/20ML VIAL IV ONE (18:18)
[2018-01-22] MEDS: MORPHINE SULFATE 4 MG/ML CPJ (NOT FOR IM USE) IV PRN (20:35)
[2018-01-23] VITALS (50 sets, daily range): BP systolic 90–154; BP diastolic 36–86
[2018-01-23] MEDS: IPRATROPIUM/ALBUTEROL 0.5-3(2.5)MG/3ML NEB INH SCH ×6 (00:28→20:20)
[2018-01-23] MEDS: PROPOFOL 10MG/ML 100ML 100 ML IV PRN ×2 (00:32→05:06)
[2018-01-23] MEDS: MORPHINE SULFATE 4 MG/ML CPJ (NOT FOR IM USE) IV PRN ×4 (02:24→21:21)
[2018-01-23] MEDS: DEXT 5%/0.9% NACL 1,000 ML IV SCH (05:10)
[2018-01-23] MEDS: BLOOD SUGAR DIAGNOSTIC STRIP TEST SCH ×3 (05:13→17:50)
[2018-01-23] MEDS: THEOPHYLLINE ANHYDROUS 80 MG/15 ML 120ML PO SCH ×3 (05:13→17:49)
[2018-01-23] MEDS: INSULIN LISPRO 100 UNITS/ML SUBCUT SCH ×3 (06:00→17:50)
[2018-01-23] MEDS: SODIUM CHLORIDE 0.9% INJ 3ML FLUSH IVF SCH ×3 (06:00→21:22)
[2018-01-23 07:37] LABS: CHLORIDE 114 mEq/L (98-107)
[2018-01-23 08:29] LABS: BG BASE EXCESS 1.2 mmol/L (-2.0-2.0); BG CARBOXYHEMOGLOBIN 0.7 % (0.5-1.5); BG DEOXYHEMOGLOBIN 2.1 % (0.0-5.0); BG FRACTION INSPIRED OXYGEN 40; BG HCO3 ACT 25.7 mmol/L (22.0-26.0); BG METHEMOGLOBIN 0.3 % (0.0-1.5); BG OXYGEN SATURATION 97.9 % (92.0-98.5); BG OXYHEMOGLOBIN 96.9 % (94.0-97.0); BG PH 7.425 (7.350-7.450); BG SAMPLE SITE LEFT RADIAL; BG TIDAL VOLUME(mL) 500 mL; BG TOTAL HEMOGLOBIN 8.1 g/dL (12.0-18.0); BG VENT MODE VENT - A/C; BG VENT RATE 12 set
[2018-01-23] MEDS: METOPROLOL TARTRATE 25MG TABLET PO SCH ×3 (09:00→20:43)
[2018-01-23] MEDS: DOCUSATE SODIUM SUGAR FREE 100MG/10ML UDC NG SCH (09:00)
[2018-01-23] MEDS: ACETAMINOPHEN 650MG/20.3ML UDC GT PRN (09:23)
[2018-01-23] MEDS: FERROUS SULFATE 325MG TABLET PO SCH ×3 (09:23→17:48)
[2018-01-23] MEDS: METHYLPREDNISOLONE SOD SUCC 40 MG/ML VIAL IV SCH (09:24)
[2018-01-23] MEDS: ASCORBIC ACID 500 MG TABLET PO SCH ×4 (09:24→17:48)
[2018-01-23] MEDS ORDERED: LORAZEPAM 2MG/ML CPJ IV PRN (10:00)
[2018-01-23] MEDS: PREDNISONE 20MG TABLET PO SCH (10:15)
[2018-01-23] MEDS ORDERED: QUETIAPINE FUMARATE 25MG TABLET PEG SCH (10:30)
[2018-01-23] MEDS: LORAZEPAM 2MG/ML CPJ IV PRN ×2 (11:45→17:26)
[2018-01-23] MEDS: BUDESONIDE 0.5MG/2ML NEB HHN SCH ×2 (12:00→20:20)
[2018-01-23] MEDS: ONDANSETRON HCL 4MG/2ML INJ IV PRN (17:20)
[2018-01-23] MEDS: QUETIAPINE FUMARATE 25MG TABLET PEG SCH (20:44)
[2018-01-23] MEDS: DIPHENHYDRAMINE 50MG/ML VIAL IV PRN (21:21)
[2018-01-24] VITALS (49 sets, daily range): BP systolic 80–175; BP diastolic 38–133
[2018-01-24] MEDS: BLOOD SUGAR DIAGNOSTIC STRIP TEST SCH ×5 (00:02→23:51)
[2018-01-24] MEDS: IPRATROPIUM/ALBUTEROL 0.5-3(2.5)MG/3ML NEB INH SCH ×6 (00:11→20:09)
[2018-01-24] MEDS: ACETAMINOPHEN 325MG TABLET PO PRN ×2 (02:39→21:30)
[2018-01-24] MEDS: INSULIN LISPRO 100 UNITS/ML SUBCUT SCH ×4 (05:32→17:36)
[2018-01-24] MEDS: SODIUM CHLORIDE 0.9% INJ 3ML FLUSH IVF SCH ×3 (06:18→22:00)
[2018-01-24] MEDS: LORAZEPAM 2MG/ML CPJ IV PRN ×2 (07:31→16:24)
[2018-01-24] MEDS: MORPHINE SULFATE 4 MG/ML CPJ (NOT FOR IM USE) IV PRN ×2 (07:33→13:18)
[2018-01-24] MEDS: BUDESONIDE 0.5MG/2ML NEB HHN SCH ×2 (08:33→20:09)
[2018-01-24] MEDS: DOCUSATE SODIUM SUGAR FREE 100MG/10ML UDC NG SCH (09:00)
[2018-01-24] MEDS: ACETAMINOPHEN 650MG/20.3ML UDC GT PRN (09:37)
[2018-01-24] MEDS: PREDNISONE 20MG TABLET PO SCH (09:38)
[2018-01-24] MEDS: QUETIAPINE FUMARATE 25MG TABLET PEG SCH ×2 (09:38→21:25)
[2018-01-24] MEDS: ASCORBIC ACID 500 MG TABLET PO SCH ×3 (09:38→17:35)
[2018-01-24] MEDS: FERROUS SULFATE 325MG TABLET PO SCH ×3 (09:39→17:35)
[2018-01-24] MEDS: METOPROLOL TARTRATE 25MG TABLET PO SCH ×2 (09:39→21:26)
[2018-01-24] MEDS: DIPHENHYDRAMINE 50MG/ML VIAL IV PRN (13:17)
[2018-01-25] VITALS (35 sets, daily range): BP systolic 85–140; BP diastolic 34–96
[2018-01-25] MEDS: IPRATROPIUM/ALBUTEROL 0.5-3(2.5)MG/3ML NEB INH SCH ×6 (00:41→20:45)
[2018-01-25] MEDS: MORPHINE SULFATE 4 MG/ML CPJ (NOT FOR IM USE) IV PRN ×4 (01:51→22:13)
[2018-01-25] MEDS: DIPHENHYDRAMINE 50MG/ML VIAL IV PRN ×2 (01:51→11:41)
[2018-01-25] MEDS: METOPROLOL TARTRATE 25MG TABLET PO SCH ×2 (04:45→21:00)
[2018-01-25] MEDS: LORAZEPAM 2MG/ML CPJ IV PRN (05:08)
[2018-01-25] MEDS: SODIUM CHLORIDE 0.9% INJ 3ML FLUSH IVF SCH ×2 (05:10→14:00)
[2018-01-25] MEDS: INSULIN LISPRO 100 UNITS/ML SUBCUT SCH ×4 (06:00→17:05)
[2018-01-25] MEDS: BLOOD SUGAR DIAGNOSTIC STRIP TEST SCH ×3 (06:00→17:04)
[2018-01-25] MEDS: BUDESONIDE 0.5MG/2ML NEB HHN SCH ×2 (08:09→20:46)
[2018-01-25] MEDS: DOCUSATE SODIUM SUGAR FREE 100MG/10ML UDC NG SCH (09:00)
[2018-01-25] MEDS: ACETAMINOPHEN 650MG/20.3ML UDC GT PRN (09:36)
[2018-01-25] MEDS: QUETIAPINE FUMARATE 25MG TABLET PEG SCH ×2 (09:37→21:41)
[2018-01-25] MEDS: PREDNISONE 20MG TABLET PO SCH (09:37)
[2018-01-25] MEDS: FERROUS SULFATE 325MG TABLET PO SCH ×3 (09:37→17:18)
[2018-01-25] MEDS: ASCORBIC ACID 500 MG TABLET PO SCH ×3 (09:37→17:18)
[2018-01-25] MEDS: PANTOPRAZOLE SODIUM 40 MG/VIAL IV SCH (17:17)
[2018-01-26] VITALS (12 sets, daily range): BP systolic 95–160; BP diastolic 47–100
[2018-01-26] MEDS: IPRATROPIUM/ALBUTEROL 0.5-3(2.5)MG/3ML NEB INH SCH ×6 (00:18→21:00)
[2018-01-26] MEDS: LORAZEPAM 2MG/ML CPJ IV PRN (02:15)
[2018-01-26] MEDS: INSULIN LISPRO 100 UNITS/ML SUBCUT SCH ×4 (06:00→17:07)
[2018-01-26] MEDS: MORPHINE SULFATE 4 MG/ML CPJ (NOT FOR IM USE) IV PRN ×3 (06:18→18:55)
[2018-01-26] MEDS: PANTOPRAZOLE SODIUM 40 MG/VIAL IV SCH ×2 (06:20→17:06)
[2018-01-26] MEDS: BLOOD SUGAR DIAGNOSTIC STRIP TEST SCH ×4 (06:59→17:07)
[2018-01-26] MEDS: BUDESONIDE 0.5MG/2ML NEB HHN SCH ×2 (07:44→21:00)
[2018-01-26] MEDS: METOPROLOL TARTRATE 25MG TABLET PO SCH ×2 (09:00→21:10)
[2018-01-26] MEDS: FERROUS SULFATE 325MG TABLET PO SCH ×3 (09:15→17:06)
[2018-01-26] MEDS: QUETIAPINE FUMARATE 25MG TABLET PEG SCH ×2 (09:15→21:09)
[2018-01-26] MEDS: DOCUSATE SODIUM SUGAR FREE 100MG/10ML UDC NG SCH (09:15)
[2018-01-26] MEDS: PREDNISONE 20MG TABLET PO SCH (09:15)
[2018-01-26] MEDS: ASCORBIC ACID 500 MG TABLET PO SCH ×3 (09:15→17:06)
[2018-01-26] MEDS: SODIUM CHLORIDE 0.9% INJ 3ML FLUSH IVF SCH (21:01)
[2018-01-26] MEDS: HYDROCODONE/ACETAMINOPHEN 5/325MG TABLET PEG PRN (21:56)
[2018-01-27] VITALS (12 sets, daily range): BP systolic 96–152; BP diastolic 57–98
[2018-01-27] MEDS: IPRATROPIUM/ALBUTEROL 0.5-3(2.5)MG/3ML NEB INH SCH ×6 (00:25→20:43)
[2018-01-27] MEDS: MORPHINE SULFATE 4 MG/ML CPJ (NOT FOR IM USE) IV PRN ×4 (01:15→20:21)
[2018-01-27] MEDS: PHENOL/SODIUM PHENOLATE 1.4% SRPAY 177ML MM PRN ×2 (04:06→08:38)
[2018-01-27] MEDS: HYDROCODONE/ACETAMINOPHEN 5/325MG TABLET PEG PRN ×3 (04:06→16:02)
[2018-01-27] MEDS: SODIUM CHLORIDE 0.9% INJ 3ML FLUSH IVF SCH ×3 (05:49→22:00)
[2018-01-27] MEDS: BLOOD SUGAR DIAGNOSTIC STRIP TEST SCH ×4 (06:00→17:17)
[2018-01-27] MEDS: INSULIN LISPRO 100 UNITS/ML SUBCUT SCH ×4 (06:00→17:18)
[2018-01-27] MEDS: PANTOPRAZOLE SODIUM 40 MG/VIAL IV SCH ×2 (06:24→17:07)
[2018-01-27] MEDS: BUDESONIDE 0.5MG/2ML NEB HHN SCH (08:15)
[2018-01-27] MEDS: METOPROLOL TARTRATE 25MG TABLET PO SCH ×2 (08:39→21:55)
[2018-01-27] MEDS: FERROUS SULFATE 325MG TABLET PO SCH ×3 (08:39→17:07)
[2018-01-27] MEDS: QUETIAPINE FUMARATE 25MG TABLET PEG SCH ×2 (08:40→21:55)
[2018-01-27] MEDS: ASCORBIC ACID 500 MG TABLET PO SCH ×3 (08:40→17:07)
[2018-01-27] MEDS: DOCUSATE SODIUM SUGAR FREE 100MG/10ML UDC NG SCH (08:52)
[2018-01-27] MEDS ORDERED: PHENOL/SODIUM PHENOLATE 1.4% SRPAY 177ML MM PRN (11:45)
[2018-01-27] MEDS: ACETAMINOPHEN 325MG TABLET PO PRN (21:55)
[2018-01-28] VITALS (12 sets, daily range): BP systolic 94–146; BP diastolic 54–118
[2018-01-28] MEDS: MAGNESIUM/ALUMINUM HYDROXIDE/SIMETHICONE 30ML UDC PO PRN (00:24)
[2018-01-28] MEDS: BUDESONIDE 0.5MG/2ML NEB HHN SCH ×3 (00:52→21:17)
[2018-01-28] MEDS: IPRATROPIUM/ALBUTEROL 0.5-3(2.5)MG/3ML NEB INH SCH ×6 (00:52→21:17)
[2018-01-28] MEDS: MORPHINE SULFATE 4 MG/ML CPJ (NOT FOR IM USE) IV PRN ×5 (01:22→23:13)
[2018-01-28] MEDS: HYDROCODONE/ACETAMINOPHEN 5/325MG TABLET PEG PRN ×2 (02:24→09:46)
[2018-01-28] MEDS: INSULIN LISPRO 100 UNITS/ML SUBCUT SCH ×5 (06:00→23:26)
[2018-01-28] MEDS: SODIUM CHLORIDE 0.9% INJ 3ML FLUSH IVF SCH ×3 (06:00→21:58)
[2018-01-28] MEDS: BLOOD SUGAR DIAGNOSTIC STRIP TEST SCH ×5 (06:00→23:25)
[2018-01-28] MEDS: PANTOPRAZOLE SODIUM 40 MG/VIAL IV SCH ×2 (06:09→18:28)
[2018-01-28] MEDS: DOCUSATE SODIUM SUGAR FREE 100MG/10ML UDC NG SCH (09:43)
[2018-01-28] MEDS: FERROUS SULFATE 325MG TABLET PO SCH ×3 (09:43→18:29)
[2018-01-28] MEDS: ASCORBIC ACID 500 MG TABLET PO SCH ×3 (09:43→18:29)
[2018-01-28] MEDS: QUETIAPINE FUMARATE 25MG TABLET PEG SCH ×2 (09:43→20:01)
[2018-01-28] MEDS: METOPROLOL TARTRATE 25MG TABLET PO SCH ×2 (09:47→20:01)
[2018-01-28] MEDS: LORAZEPAM 2MG/ML CPJ IV PRN (17:36)
[2018-01-28] MEDS: SIMETHICONE 80MG TABLET CHEW PO PRN (20:01)
[2018-01-28] MEDS: THEOPHYLLINE ANHYDROUS 80 MG/15 ML 120ML PO SCH (22:06)
[2018-01-29] VITALS (12 sets, daily range): BP systolic 94–133; BP diastolic 58–72
[2018-01-29] MEDS: LORAZEPAM 2MG/ML CPJ IV PRN ×2 (01:35→15:50)
[2018-01-29] MEDS: IPRATROPIUM/ALBUTEROL 0.5-3(2.5)MG/3ML NEB INH SCH ×6 (02:40→19:42)
[2018-01-29] MEDS: INSULIN LISPRO 100 UNITS/ML SUBCUT SCH ×4 (05:11→22:36)
[2018-01-29] MEDS: BLOOD SUGAR DIAGNOSTIC STRIP TEST SCH ×4 (05:11→22:33)
[2018-01-29] MEDS: PANTOPRAZOLE SODIUM 40 MG/VIAL IV SCH ×2 (05:19→17:31)
[2018-01-29] MEDS: SODIUM CHLORIDE 0.9% INJ 3ML FLUSH IVF SCH ×3 (05:19→20:11)
[2018-01-29] MEDS: THEOPHYLLINE ANHYDROUS 80 MG/15 ML 120ML PO SCH ×3 (05:20→21:32)
[2018-01-29] MEDS: MORPHINE SULFATE 4 MG/ML CPJ (NOT FOR IM USE) IV PRN ×3 (06:37→19:06)
[2018-01-29 07:04] LABS: BASOPHILS % 0.7 % (0.0-2.0); EOSINOPHILS % 0.4 % (0.0-5.0); HEMATOCRIT. 26.9 % (36.0-48.0); HEMOGLOBIN. 8.8 g/dL (12.0-16.0); LYMPHOCYTES % 12.7 % (20.0-50.0); MEAN PLATELET VOLUME 7.2 fl (7.4-10.4); MONOCYTES % 6.7 % (2.0-8.0); NEUTROPHILS % 79.5 % (40.0-76.0); PLATELET 282 x1000/uL (130-400); RED BLOOD CELL COUNT 2.83 mill/uL (4.2-5.4); RED CELL DISTRIBUTION WIDTH 18.4 % (11.6-14.6)
[2018-01-29 08:30] LABS: CHLORIDE 102 mEq/L (98-107)
[2018-01-29] MEDS: BUDESONIDE 0.5MG/2ML NEB HHN SCH ×2 (08:41→19:42)
[2018-01-29] MEDS: FERROUS SULFATE 325MG TABLET PO SCH ×3 (08:54→17:31)
[2018-01-29] MEDS: QUETIAPINE FUMARATE 25MG TABLET PEG SCH (08:54)
[2018-01-29] MEDS: ASCORBIC ACID 500 MG TABLET PO SCH ×3 (08:54→17:31)
[2018-01-29] MEDS: METOPROLOL TARTRATE 25MG TABLET PO SCH ×2 (08:55→20:11)
[2018-01-29] MEDS: DOCUSATE SODIUM SUGAR FREE 100MG/10ML UDC NG SCH (08:55)
[2018-01-29] MEDS: SIMETHICONE 80MG TABLET CHEW PO PRN ×3 (08:58→20:11)
[2018-01-29] MEDS: QUETIAPINE FUMARATE 50MG TABLET NG SCH (20:10)
[2018-01-29] MEDS: ONDANSETRON HCL 4MG/2ML INJ IV PRN (20:11)
[2018-01-29] MEDS: DIGOXIN 500MCG/2ML AMP IV SCH (22:29)
[2018-01-30] VITALS (13 sets, daily range): BP systolic 87–133; BP diastolic 55–80
[2018-01-30] MEDS: MORPHINE SULFATE 4 MG/ML CPJ (NOT FOR IM USE) IV PRN ×5 (00:10→21:11)
[2018-01-30] MEDS: IPRATROPIUM/ALBUTEROL 0.5-3(2.5)MG/3ML NEB INH SCH ×6 (00:35→20:33)
[2018-01-30] MEDS: PANTOPRAZOLE SODIUM 40 MG/VIAL IV SCH (05:03)
[2018-01-30] MEDS: INSULIN LISPRO 100 UNITS/ML SUBCUT SCH ×3 (05:04→18:00)
[2018-01-30] MEDS: SODIUM CHLORIDE 0.9% INJ 3ML FLUSH IVF SCH ×3 (05:04→22:59)
[2018-01-30] MEDS: BLOOD SUGAR DIAGNOSTIC STRIP TEST SCH ×3 (05:04→18:01)
[2018-01-30] MEDS: THEOPHYLLINE ANHYDROUS 80 MG/15 ML 120ML PO SCH ×2 (05:05→15:02)
[2018-01-30] MEDS: ACETAMINOPHEN 650MG/20.3ML UDC GT PRN (05:06)
[2018-01-30] MEDS: BUDESONIDE 0.5MG/2ML NEB HHN SCH ×2 (07:54→20:33)
[2018-01-30] MEDS: QUETIAPINE FUMARATE 50MG TABLET NG SCH ×2 (08:48→21:09)
[2018-01-30] MEDS: FERROUS SULFATE 325MG TABLET PO SCH ×3 (08:48→17:25)
[2018-01-30] MEDS: METOPROLOL TARTRATE 25MG TABLET PO SCH ×2 (08:49→21:09)
[2018-01-30] MEDS: ASCORBIC ACID 500 MG TABLET PO SCH ×3 (08:49→17:25)
[2018-01-30] MEDS: DOCUSATE SODIUM SUGAR FREE 100MG/10ML UDC NG SCH (08:50)
[2018-01-30] MEDS: SIMETHICONE 80MG TABLET CHEW PO PRN (12:48)
[2018-01-30] MEDS: DIGOXIN 500MCG/2ML AMP IV SCH (17:25)
[2018-01-30] MEDS: FAMOTIDINE 20MG/2ML VIAL IV SCH (21:08)
[2018-01-30] MEDS: LORAZEPAM 2MG/ML CPJ IV PRN (21:11)
[2018-01-30] MEDS: ACETAMINOPHEN 325MG TABLET PO PRN (21:13)
[2018-01-30] MEDS: DIPHENHYDRAMINE 50MG/ML VIAL IV PRN (22:58)
[2018-01-31] VITALS (13 sets, daily range): BP systolic 89–138; BP diastolic 49–76
[2018-01-31] MEDS: IPRATROPIUM/ALBUTEROL 0.5-3(2.5)MG/3ML NEB INH SCH ×4 (00:12→11:23)
[2018-01-31] MEDS: BLOOD SUGAR DIAGNOSTIC STRIP TEST SCH ×4 (00:22→18:41)
[2018-01-31] MEDS: MORPHINE SULFATE 4 MG/ML CPJ (NOT FOR IM USE) IV PRN ×3 (02:01→20:11)
[2018-01-31] MEDS: DIPHENHYDRAMINE 50MG/ML VIAL IV PRN (05:14)
[2018-01-31] MEDS: LORAZEPAM 2MG/ML CPJ IV PRN (05:14)
[2018-01-31] MEDS: SODIUM CHLORIDE 0.9% INJ 3ML FLUSH IVF SCH ×3 (06:24→21:21)
[2018-01-31] MEDS: INSULIN LISPRO 100 UNITS/ML SUBCUT SCH ×4 (06:24→18:00)
[2018-01-31] MEDS: BUDESONIDE 0.5MG/2ML NEB HHN SCH ×2 (07:37→20:04)
[2018-01-31] MEDS: FERROUS SULFATE 325MG TABLET PO SCH ×3 (08:37→18:22)
[2018-01-31] MEDS: DOCUSATE SODIUM SUGAR FREE 100MG/10ML UDC NG SCH (08:37)
[2018-01-31] MEDS: ASCORBIC ACID 500 MG TABLET PO SCH ×3 (08:37→18:22)
[2018-01-31] MEDS: FAMOTIDINE 20MG/2ML VIAL IV SCH ×2 (08:37→21:20)
[2018-01-31] MEDS: QUETIAPINE FUMARATE 50MG TABLET NG SCH ×2 (08:37→21:21)
[2018-01-31] MEDS: METOPROLOL TARTRATE 25MG TABLET PO SCH ×2 (09:00→21:21)
[2018-01-31] MEDS: ACETAMINOPHEN 325MG TABLET PO PRN ×2 (11:17→16:24)
[2018-01-31] MEDS: ACETAMINOPHEN 650MG/20.3ML UDC GT PRN (11:42)
[2018-01-31] MEDS: IPRATROPIUM BROMIDE (0.02%) 0.5MG/2.5ML NEB HHN SCH ×2 (15:20→20:04)
[2018-01-31] MEDS: DIGOXIN 500MCG/2ML AMP IV SCH (18:22)
[2018-01-31 20:51] LABS: BASOPHILS % 0.7 % (0.0-2.0); EOSINOPHILS % 3.2 % (0.0-5.0); HEMATOCRIT. 23.9 % (36.0-48.0); LYMPHOCYTES % 13.4 % (20.0-50.0); MEAN CORPUSCULAR HEMOGLOBIN 31.3 pg (28.0-32.0); MEAN CORPUSCULAR VOLUME 93.9 fL (81.0-99.0); MONOCYTES % 9.2 % (2.0-8.0); NEUTROPHILS % 73.5 % (40.0-76.0); PLATELET 311 x1000/uL (130-400); RED BLOOD CELL COUNT 2.55 mill/uL (4.2-5.4); RED CELL DISTRIBUTION WIDTH 17.9 % (11.6-14.6)
[2018-01-31 21:13] LABS: CHLORIDE 103 mEq/L (98-107)
[2018-02-01] VITALS (14 sets, daily range): BP systolic 89–132; BP diastolic 44–85
[2018-02-01] MEDS: IPRATROPIUM BROMIDE (0.02%) 0.5MG/2.5ML NEB HHN SCH ×6 (00:13→19:51)
[2018-02-01] MEDS: BLOOD SUGAR DIAGNOSTIC STRIP TEST SCH ×4 (00:43→17:37)
[2018-02-01] MEDS: MORPHINE SULFATE 4 MG/ML CPJ (NOT FOR IM USE) IV PRN ×4 (01:05→21:11)
[2018-02-01] MEDS: LORAZEPAM 2MG/ML CPJ IV PRN (01:05)
[2018-02-01] MEDS: ACETAMINOPHEN 325MG TABLET PO PRN ×2 (01:06→16:15)
[2018-02-01] MEDS: SODIUM CHLORIDE 0.9% INJ 3ML FLUSH IVF SCH ×3 (05:52→21:22)
[2018-02-01] MEDS: INSULIN LISPRO 100 UNITS/ML SUBCUT SCH ×4 (05:53→17:37)
[2018-02-01] MEDS: BUDESONIDE 0.5MG/2ML NEB HHN SCH ×2 (07:31→19:50)
[2018-02-01] MEDS: FERROUS SULFATE 325MG TABLET PO SCH ×3 (08:15→18:47)
[2018-02-01] MEDS: ASCORBIC ACID 500 MG TABLET PO SCH ×3 (08:15→18:47)
[2018-02-01] MEDS ORDERED: HYDROCODONE/ACETAMINOPHEN 5/325MG TABLET PO PRN (09:30)
[2018-02-01] MEDS: HYDROCODONE/ACETAMINOPHEN 10/325MG TABLET PO PRN (09:54)
[2018-02-01] MEDS: METOPROLOL TARTRATE 25MG TABLET PO SCH ×2 (09:55→21:10)
[2018-02-01] MEDS: QUETIAPINE FUMARATE 50MG TABLET NG SCH (09:55)
[2018-02-01] MEDS: FAMOTIDINE 20MG/2ML VIAL IV SCH ×2 (09:55→21:10)
[2018-02-01] MEDS: DOCUSATE SODIUM SUGAR FREE 100MG/10ML UDC NG SCH (09:56)
[2018-02-01] MEDS: DIGOXIN 500MCG/2ML AMP IV SCH (18:47)
[2018-02-01] MEDS: QUETIAPINE FUMARATE 25MG TABLET PO SCH (21:10)
[2018-02-02] VITALS (10 sets, daily range): BP systolic 91–123; BP diastolic 40–82
[2018-02-02] MEDS: IPRATROPIUM BROMIDE (0.02%) 0.5MG/2.5ML NEB HHN SCH ×5 (00:02→15:56)
[2018-02-02] MEDS: LORAZEPAM 2MG/ML CPJ IV PRN (01:02)
[2018-02-02] MEDS: DIPHENHYDRAMINE 50MG/ML VIAL IV PRN (01:02)
[2018-02-02] MEDS: HYDROCODONE/ACETAMINOPHEN 10/325MG TABLET PO PRN (01:13)
[2018-02-02] MEDS: MORPHINE SULFATE 4 MG/ML CPJ (NOT FOR IM USE) IV PRN ×3 (04:15→17:24)
[2018-02-02] MEDS: ACETAMINOPHEN 325MG TABLET PO PRN ×2 (04:16→12:12)
[2018-02-02] MEDS: SODIUM CHLORIDE 0.9% INJ 3ML FLUSH IVF SCH ×2 (05:38→12:12)
[2018-02-02] MEDS: INSULIN LISPRO 100 UNITS/ML SUBCUT SCH ×4 (05:38→17:17)
[2018-02-02] MEDS: BLOOD SUGAR DIAGNOSTIC STRIP TEST SCH ×4 (05:39→17:17)
[2018-02-02] MEDS: FERROUS SULFATE 325MG TABLET PO SCH ×3 (08:00→17:24)
[2018-02-02] MEDS: BUDESONIDE 0.5MG/2ML NEB HHN SCH (08:21)
[2018-02-02] MEDS: FAMOTIDINE 20MG/2ML VIAL IV SCH (08:25)
[2018-02-02] MEDS: DOCUSATE SODIUM SUGAR FREE 100MG/10ML UDC NG SCH (08:25)
[2018-02-02] MEDS: QUETIAPINE FUMARATE 25MG TABLET PO SCH (08:25)
[2018-02-02] MEDS: ASCORBIC ACID 500 MG TABLET PO SCH ×3 (08:25→17:24)
[2018-02-02] MEDS: METOPROLOL TARTRATE 25MG TABLET PO SCH (08:25)
[2018-02-02 13:56] LABS: BG BASE EXCESS 8.7 mmol/L (-2.0-2.0); BG CARBOXYHEMOGLOBIN 0.4 % (0.5-1.5); BG DEOXYHEMOGLOBIN 1.6 % (0.0-5.0); BG FRACTION INSPIRED OXYGEN 50; BG HCO3 ACT 33.5 mmol/L (22.0-26.0); BG METHEMOGLOBIN 0.5 % (0.0-1.5); BG OXYGEN SATURATION 98.4 % (92.0-98.5); BG OXYHEMOGLOBIN 97.5 % (94.0-97.0); BG PCO2 48.4 mmHg (35.0-45.0); BG PH 7.458 (7.350-7.450); BG SAMPLE SITE LEFT RADIAL; BG TIDAL VOLUME(mL) 500 mL; BG TOTAL HEMOGLOBIN 8.7 g/dL (12.0-18.0); BG VENT MODE VENT - A/C; BG VENT RATE 12 set
[2018-02-02] MEDS: DIGOXIN 500MCG/2ML AMP IV SCH (17:24)
== END 2018-02-02 19:30 | DRG 4 ==
LOC: ER 19:36 → ENRESERV 20:36 → CVICU 21:18 → EDBEDREQ 21:26 → EDBEDREQTM 21:26 → 5EST 01-25 16:32
PROVIDERS: ADMIT Family Medicine; ATTEND Family Medicine
PROC: 5A09357 Assistance with Respiratory Ventilation, Less than 24 Consecutive Hours, Continuous Positive Airway Pressure (ICD-10-PCS; 2018-01-09)
PROC: 5A1955Z Respiratory Ventilation, Greater than 96 Consecutive Hours (ICD-10-PCS; principal; 2018-01-10)
PROC: 0BH17EZ Insertion of Endotracheal Airway into Trachea, Via Natural or Artificial Opening (ICD-10-PCS; 2018-01-10)
PROC: 02HV33Z Insertion of Infusion Device into Superior Vena Cava, Percutaneous Approach (ICD-10-PCS; 2018-01-13)
PROC: B548ZZA Ultrasonography of Superior Vena Cava, Guidance (ICD-10-PCS; 2018-01-13)
PROC: 30233N1 Transfusion of Nonautologous Red Blood Cells into Peripheral Vein, Percutaneous Approach (ICD-10-PCS; 2018-01-13)
PROC: 0DH63UZ Insertion of Feeding Device into Stomach, Percutaneous Approach (ICD-10-PCS; 2018-01-20)
PROC: 0BH17EZ Insertion of Endotracheal Airway into Trachea, Via Natural or Artificial Opening (ICD-10-PCS; 2018-01-20)
PROC: 0B110F4 Bypass Trachea to Cutaneous with Tracheostomy Device, Open Approach (ICD-10-PCS; 2018-01-22)
DX: A41.59 Other Gram-negative sepsis (principal); J15.6 Pneumonia due to other Gram-negative bacteria; J96.21 Acute and chronic respiratory failure with hypoxia; J44.1 Chronic obstructive pulmonary disease with (acute) exacerbation; E44.1 Mild protein-calorie malnutrition; J44.0 Chronic obstructive pulmonary disease with (acute) lower respiratory infection; N39.0 Urinary tract infection, site not specified; D63.8 Anemia in other chronic diseases classified elsewhere; E11.65 Type 2 diabetes mellitus with hyperglycemia; M19.90 Unspecified osteoarthritis, unspecified site; J32.9 Chronic sinusitis, unspecified; E61.1 Iron deficiency; E78.5 Hyperlipidemia, unspecified; S60.521A Blister (nonthermal) of right hand, initial encounter; X58.XXXA Exposure to other specified factors, initial encounter; I10 Essential (primary) hypertension; J31.0 Chronic rhinitis; R13.10 Dysphagia, unspecified; R65.20 Severe sepsis without septic shock; S20.211A Contusion of right front wall of thorax, initial encounter; S40.021A Contusion of right upper arm, initial encounter; T38.0X5A Adverse effect of glucocorticoids and synthetic analogues, initial encounter; Z78.1 Physical restraint status; Z87.01 Personal history of pneumonia (recurrent); Z87.891 Personal history of nicotine dependence; Z99.81 Dependence on supplemental oxygen; Z79.899 Other long term (current) drug therapy; Z68.25 Body mass index [BMI] 25.0-25.9, adult; Y93.89 Activity, other specified; Y92.89 Other specified places as the place of occurrence of the external cause; Y99.8 Other external cause status
CPT/HCPCS: 31500; 36415; 36569; 36600; 71045; 71275; 76937; 78580; 80048; 80061; 80198; 80305; 82375; 82550; 82553; 82607; 82728; 82746; 82805; 82962; 83036; 83540; 83550; 83605; 83735; 83880; 84100; 84134; 84145; 84439; 84443; 84478; 84484; 85007; 85014; 85018; 85027; 85379; 86850; 86900; 86920; 87070; 87077; 87106; 87186; 87804; 93005; 93306; 93922; 93970; 93971; 94002; 94003; 94640; 94644; 94660; 96365; 96366; 96375; 97163; 97166; 97530; 97535; 99291; C1725; C9113; J0330; J0360; J0456; J0696; J1160; J1200; J1650; J1815; J1940; J2060; J2250; J2270; J2405; J2543; J2704; J2920; J2930; J3010; J3430; J3475; J3480; J3490; J7030; J7040; J7042; J7050; J7060; J7131; J7512; J7620; J7626; P9016; P9047; Q9967; A4315

== ENCOUNTER 2018-09-26 10:14 | Inpatient (IN) | payer MEDICARE, MEDICAID ==
[~2018-09-26] VITALS: Ht 157.5 cm; Wt 77.1 kg
[2018-09-26] VITALS (14 sets, daily range): BP systolic 101–140; BP diastolic 67–97
[2018-09-26] MEDS ORDERED: METHYLPREDNISOLONE SOD SUCC 125 MG/2 ML VIAL IV STA (10:27)
[2018-09-26] MEDS ORDERED: IPRATROPIUM BROMIDE (0.02%) 0.5MG/2.5ML NEB HHN STA (10:27)
[2018-09-26] MEDS ORDERED: ALBUTEROL (0.083%) 2.5MG/3ML NEB HHN STA (10:27)
[2018-09-26 11:11] LABS: HEMOGLOBIN. 12.8 g/dL (12.0-16.0); MEAN CORPUSCULAR HEMOGLOBIN 30.5 pg (28.0-32.0); MEAN CORPUSCULAR VOLUME 90.5 fL (81.0-99.0); MEAN PLATELET VOLUME 6.8 fl (7.4-10.4); PLATELET 301 x1000/uL (130-400); RED CELL DISTRIBUTION WIDTH 18.7 % (11.6-14.6)
[2018-09-26 11:13] LABS: CHLORIDE 95 mEq/L (98-107)
[2018-09-26] MEDS ORDERED: MORPHINE SULFATE 4 MG/ML CPJ (NOT FOR IM USE) IV ONE (11:45)
[2018-09-26] MEDS ORDERED: DILTIAZEM HCL 5MG/ML 5ML VIAL IV ONE ×2 (11:45→12:30)
[2018-09-26 11:59] LABS: PLATELET ESTIMATE NORMAL
[2018-09-26 12:07] LABS: BG BASE EXCESS 5.1 mmol/L (-2.0-2.0); BG DEOXYHEMOGLOBIN 0.9 % (0.0-5.0); BG FRACTION INSPIRED OXYGEN 40; BG HCO3 ACT 29.6 mmol/L (22.0-26.0); BG METHEMOGLOBIN 0.4 % (0.0-1.5); BG OXYGEN SATURATION 99.1 % (92.0-98.5); BG OXYHEMOGLOBIN 97.7 % (94.0-97.0); BG PCO2 42.9 mmHg (35.0-45.0); BG PH 7.456 (7.350-7.450); BG PO2 161.5 mmHg (75.0-100.0); BG SAMPLE SITE RIGHT RADIAL; BG TOTAL HEMOGLOBIN 13.6 g/dL (12.0-18.0); BG VENT MODE MASK - BIPAP; BG VENT RATE 14 set
[2018-09-26] MEDS ORDERED: ASPIRIN 81MG TABLET PO ONE (12:30)
[2018-09-26] MEDS ORDERED: IPRATROPIUM BROMIDE (0.02%) 0.5MG/2.5ML NEB HHN PRN (12:45)
[2018-09-26] MEDS ORDERED: DILTIAZEM HCL 125 MG in DEXT 5% WATER 100 ML IV ONE (13:00)
[2018-09-26] MEDS ORDERED: ONDANSETRON HCL 4MG/2ML INJ IV PRN (13:15)
[2018-09-26] MEDS ORDERED: DILTIAZEM HCL 125 MG in DEXTROSE 5% WATER 125 ML IV PRN (13:15)
[2018-09-26] MEDS ORDERED: HYDROCODONE/ACETAMINOPHEN 5/325MG TABLET PO PRN (13:30)
[2018-09-26 15:35] LABS: CREATINE KINASE MB FRACTION 2.3 ng/mL (0.5-3.6)
[2018-09-26 16:00] LABS: PROTHROMBIN TIME 10.7 sec (9.6-11.0)
[2018-09-26] MEDS: ENOXAPARIN 80MG/0.8ML SYR SUBCUT SCH ×2 (16:00→16:35)
[2018-09-26] MEDS: BUDESONIDE 0.5MG/2ML NEB HHN SCH (16:01)
[2018-09-26] MEDS: IPRATROPIUM BROMIDE (0.02%) 0.5MG/2.5ML NEB HHN SCH ×2 (16:02→23:55)
[2018-09-26] MEDS: PAROXETINE HCL 10MG TABLET PO SCH (16:35)
[2018-09-26] MEDS: BACLOFEN 10MG TABLET PO SCH ×2 (16:35→22:27)
[2018-09-26] MEDS: LORATADINE 10MG TABLET PO SCH (16:35)
[2018-09-26] MEDS: SODIUM CHLORIDE 0.9% INJ 3ML FLUSH IVF SCH ×2 (16:36→21:33)
[2018-09-26] MEDS: METHYLPREDNISOLONE SOD SUCC 40 MG/ML VIAL IV SCH (16:36)
[2018-09-26] MEDS: METHIMAZOLE 5MG TABLET PO SCH (17:11)
[2018-09-26] MEDS: PROMETHAZINE/DEXTROMETHORPHAN 6.25-15MG/5ML BOTTLE 120ML PO PRN ×2 (17:11→23:05)
[2018-09-26] MEDS ORDERED: DILTIAZEM HCL 5MG/ML 5ML VIAL IV PRN (19:30)
[2018-09-26 20:36] LABS: CLARITY URINE CLEAR (CLEAR); COLOR URINE YELLOW (YELLOW); KETONES URINE TRACE (NEGATIVE); LEUKOCYTE ESTERASE URINE NEGATIVE (NEGATIVE); NITRITE URINE NEGATIVE (NEGATIVE); OCCULT BLOOD URINE 2+ (NEGATIVE); PH URINE 6.5 (4.5-8.0); PROTEIN URINE 2+ (NEGATIVE); SPECIFIC GRAVITY URINE 1.012 (1.005-1.030); UROBILINOGEN URINE 0.2 E.U./dL (0.2-1.0)
[2018-09-26] MEDS: HYDROCODONE/ACETAMINOPHEN 10/325MG TABLET PO PRN (20:42)
[2018-09-26 20:47] LABS: *AMPHETAMINES SCREEN URINE NEGATIVE (NEGATIVE); *BARBITURATES SCREEN URINE NEGATIVE (NEGATIVE); *BENZODIAZEPINES SCREEN URINE NEGATIVE (NEGATIVE); *COCAINE SCREEN URINE NEGATIVE (NEGATIVE); METHADONE URINE SCREEN NEGATIVE (NEGATIVE); OPIATES URINE SCREEN PRESUMTIVE POSITIVE (NEGATIVE)
[2018-09-26 20:48] LABS: CANNABINOID URINE SCREEN NEGATIVE (NEGATIVE); PHENCYCLIDINE URINE SCREEN NEGATIVE (NEGATIVE)
[2018-09-26] MEDS: AZELASTINE HCL 137MCG/SPRAY NASAL PUMP BOTHNSTRLS SCH (20:52)
[2018-09-26 23:24] LABS: CREATINE KINASE MB FRACTION 1.9 ng/mL (0.5-3.6)
[2018-09-26] MEDS: DILTIAZEM HCL 125 MG in DEXT 5% WATER 100 ML IV SCH (23:47)
[2018-09-27] VITALS (41 sets, daily range): BP systolic 95–156; BP diastolic 62–89
[2018-09-27] MEDS: METHYLPREDNISOLONE SOD SUCC 40 MG/ML VIAL IV SCH ×2 (00:56→08:22)
[2018-09-27] MEDS: LORAZEPAM 0.5MG TABLET PO PRN ×2 (01:30→09:36)
[2018-09-27] MEDS: IPRATROPIUM BROMIDE (0.02%) 0.5MG/2.5ML NEB HHN SCH ×5 (04:10→20:14)
[2018-09-27] MEDS: HYDROCODONE/ACETAMINOPHEN 10/325MG TABLET PO PRN ×3 (04:29→21:56)
[2018-09-27 05:09] LABS: HEMATOCRIT. 32.5 % (36.0-48.0); HEMOGLOBIN. 10.9 g/dL (12.0-16.0); MEAN CORPUSCULAR HEMOGLOBIN 30.1 pg (28.0-32.0); MEAN CORPUSCULAR VOLUME 89.8 fL (81.0-99.0); MEAN PLATELET VOLUME 6.9 fl (7.4-10.4); PLATELET 263 x1000/uL (130-400); RED BLOOD CELL COUNT 3.63 mill/uL (4.2-5.4); RED CELL DISTRIBUTION WIDTH 18.3 % (11.6-14.6)
[2018-09-27 05:17] LABS: CHLORIDE 96 mEq/L (98-107)
[2018-09-27 05:28] LABS: PHOSPHORUS 2.4 mg/dL (2.5-4.9)
[2018-09-27] MEDS: DILTIAZEM HCL 125 MG in DEXT 5% WATER 100 ML IV SCH ×3 (06:20→23:00)
[2018-09-27] MEDS: SODIUM CHLORIDE 0.9% INJ 3ML FLUSH IVF SCH ×3 (06:57→21:45)
[2018-09-27] MEDS: PROMETHAZINE/DEXTROMETHORPHAN 6.25-15MG/5ML BOTTLE 120ML PO PRN (07:37)
[2018-09-27] MEDS: BACLOFEN 10MG TABLET PO SCH ×3 (07:37→21:56)
[2018-09-27] MEDS: METHIMAZOLE 5MG TABLET PO SCH (08:21)
[2018-09-27] MEDS: ASPIRIN 81MG EC TABLET PO SCH (08:22)
[2018-09-27] MEDS: LORATADINE 10MG TABLET PO SCH (08:22)
[2018-09-27] MEDS: AZELASTINE HCL 137MCG/SPRAY NASAL PUMP BOTHNSTRLS SCH ×2 (08:22→21:57)
[2018-09-27] MEDS: OMEPRAZOLE 20MG CAPSULE EXTENDED RELEASE PO SCH (08:22)
[2018-09-27] MEDS: PAROXETINE HCL 10MG TABLET PO SCH (08:22)
[2018-09-27] MEDS: BUDESONIDE 0.5MG/2ML NEB HHN SCH ×2 (08:43→20:14)
[2018-09-27] MEDS: DILTIAZEM HCL 60MG TABLET PO SCH ×3 (10:08→21:56)
[2018-09-27 10:35] LABS: PLATELET ESTIMATE NORMAL
[2018-09-27] MEDS ORDERED: MORPHINE SULFATE 2 MG/ML CPJ (NOT FOR IM USE) IV PRN (11:15)
[2018-09-27] MEDS ORDERED: DEXTROSE 50% WATER 50ML SYRINGE IV PRN (11:30)
[2018-09-27] MEDS: ENOXAPARIN 40MG/0.4ML SYR SUBCUT SCH (12:00)
[2018-09-27] MEDS: BLOOD SUGAR DIAGNOSTIC STRIP TEST SCH ×3 (12:50→21:45)
[2018-09-27] MEDS ORDERED: SKIN ADHESIVE 0.7 GM EA TOP ONE (13:02)
[2018-09-27] MEDS ORDERED: BUPIVACAINE HCL 0.5% (5MG/ML) 50ML ONE (13:02)
[2018-09-27] MEDS ORDERED: FENTANYL CITRATE/PF 50MCG/ML 2ML VIAL ONE (13:03)
[2018-09-27] MEDS ORDERED: MIDAZOLAM HCL 2 MG/2 ML VIAL ONE (13:04)
[2018-09-27] MEDS ORDERED: SODIUM CHLORIDE 0.9% 10ML VIAL ONE (13:04)
[2018-09-27] MEDS: INSULIN LISPRO 100 UNITS/ML SUBCUT SCH ×3 (13:10→21:00)
[2018-09-27] MEDS ORDERED: ROCURONIUM BROMIDE 10MG/ML VIAL 5ML IV ONE (13:14)
[2018-09-27] MEDS ORDERED: LEVOFLOXACIN 500MG PREMIX 100 ML IV ONE (13:29)
[2018-09-27] MEDS ORDERED: BACITRACIN 50,000 UNITS/VIAL ONE (13:33)
[2018-09-27] MEDS ORDERED: PROPOFOL 200MG/20ML VIAL IV ONE (13:39)
[2018-09-27] MEDS ORDERED: LIDOCAINE HCL/PF 1% 10 MG/ML 5ML VIAL ONE (13:39)
[2018-09-27] MEDS ORDERED: ONDANSETRON HCL 4MG/2ML INJ ONE (13:56)
[2018-09-27] MEDS ORDERED: DEXAMETHASONE 4MG/ML 1ML VIAL ONE (13:56)
[2018-09-27] MEDS ORDERED: VANCOMYCIN 1250MG in DEXTROSE 5% WATER 250ML IV SCH (14:00)
[2018-09-27] MEDS: PIPERACILLIN SODIUM/TAZOBACTAM 4.5 G in DEXT 5% WATER 100 ML IV SCH ×2 (15:14→18:16)
[2018-09-27] MEDS ORDERED: HYDROMORPHONE HCL/PF 2MG/ML CPJ IV PRN (15:15)
[2018-09-27] MEDS: PREDNISONE 20MG TABLET PO SCH (17:38)
[2018-09-27] MEDS: HYDROMORPHONE HCL/PF 2MG/ML CPJ IV PRN (18:16)
[2018-09-28] VITALS (42 sets, daily range): BP systolic 62–154; BP diastolic 22–93
[2018-09-28] MEDS: IPRATROPIUM BROMIDE (0.02%) 0.5MG/2.5ML NEB HHN SCH ×6 (00:11→20:23)
[2018-09-28] MEDS: PIPERACILLIN SODIUM/TAZOBACTAM 4.5 G in DEXT 5% WATER 100 ML IV SCH ×4 (01:16→18:49)
[2018-09-28] MEDS: VANCOMYCIN 1 G PREMIX 200 ML IV SCH ×2 (02:52→15:19)
[2018-09-28] MEDS: HYDROMORPHONE HCL/PF 2MG/ML CPJ IV PRN ×3 (03:29→13:07)
[2018-09-28] MEDS: PROMETHAZINE/DEXTROMETHORPHAN 6.25-15MG/5ML BOTTLE 120ML PO PRN (04:01)
[2018-09-28 05:48] LABS: HEMATOCRIT. 31.1 % (36.0-48.0); HEMOGLOBIN. 10.3 g/dL (12.0-16.0); MEAN CORPUSCULAR HEMOGLOBIN 29.7 pg (28.0-32.0); MEAN PLATELET VOLUME 7.2 fl (7.4-10.4); PLATELET 279 x1000/uL (130-400); RED BLOOD CELL COUNT 3.46 mill/uL (4.2-5.4); RED CELL DISTRIBUTION WIDTH 18.3 % (11.6-14.6)
[2018-09-28] MEDS: SODIUM CHLORIDE 0.9% INJ 3ML FLUSH IVF SCH ×3 (06:00→21:25)
[2018-09-28 06:04] LABS: CHLORIDE 98 mEq/L (98-107)
[2018-09-28] MEDS: BACLOFEN 10MG TABLET PO SCH ×3 (07:09→21:25)
[2018-09-28] MEDS: DILTIAZEM HCL 60MG TABLET PO SCH ×2 (07:09→18:42)
[2018-09-28] MEDS: DILTIAZEM HCL 125 MG in DEXT 5% WATER 100 ML IV SCH (07:19)
[2018-09-28] MEDS: BLOOD SUGAR DIAGNOSTIC STRIP TEST SCH ×5 (07:19→21:24)
[2018-09-28 07:55] LABS: PLATELET ESTIMATE NORMAL
[2018-09-28] MEDS: ASPIRIN 81MG EC TABLET PO SCH (08:25)
[2018-09-28] MEDS: PREDNISONE 20MG TABLET PO SCH ×2 (08:25→17:00)
[2018-09-28] MEDS: AZELASTINE HCL 137MCG/SPRAY NASAL PUMP BOTHNSTRLS SCH ×2 (08:25→21:24)
[2018-09-28] MEDS: INSULIN LISPRO 100 UNITS/ML SUBCUT SCH ×4 (08:25→21:00)
[2018-09-28] MEDS: PAROXETINE HCL 10MG TABLET PO SCH (08:25)
[2018-09-28] MEDS: OMEPRAZOLE 20MG CAPSULE EXTENDED RELEASE PO SCH (08:25)
[2018-09-28] MEDS: LORATADINE 10MG TABLET PO SCH (08:25)
[2018-09-28] MEDS: BUDESONIDE 0.5MG/2ML NEB HHN SCH ×2 (09:21→20:23)
[2018-09-28] MEDS: LORAZEPAM 2MG/ML CPJ IV PRN (10:32)
[2018-09-28] MEDS: METHIMAZOLE 5MG TABLET PO SCH (10:53)
[2018-09-28] MEDS: ENOXAPARIN 40MG/0.4ML SYR SUBCUT SCH (13:06)
[2018-09-28 13:39] LABS: HEMATOCRIT. 32.7 % (36.0-48.0); HEMOGLOBIN. 10.9 g/dL (12.0-16.0); MEAN CORPUSCULAR HEMOGLOBIN 30.2 pg (28.0-32.0); MEAN CORPUSCULAR VOLUME 90.7 fL (81.0-99.0); MEAN PLATELET VOLUME 7.2 fl (7.4-10.4); PLATELET 310 x1000/uL (130-400); RED CELL DISTRIBUTION WIDTH 18.1 % (11.6-14.6)
[2018-09-28 13:43] LABS: CHLORIDE 97 mEq/L (98-107)
[2018-09-28] MEDS ORDERED: LEVOFLOXACIN 500MG PREMIX 100 ML IV SCH (14:00)
[2018-09-28 15:30] LABS: PLATELET ESTIMATE NORMAL
[2018-09-28] MEDS ORDERED: ONDANSETRON HCL 4MG TABLET PO PRN (15:45)
[2018-09-28] MEDS: HYDROCODONE/ACETAMINOPHEN 10/325MG TABLET PO PRN (18:42)
[2018-09-28] MEDS: CLINDAMYCIN 600MG PREMIX 50 ML IV SCH (20:00)
[2018-09-29] VITALS (17 sets, daily range): BP systolic 112–154; BP diastolic 69–95
[2018-09-29] MEDS: DILTIAZEM HCL 60MG TABLET PO SCH ×4 (00:33→17:56)
[2018-09-29] MEDS: PIPERACILLIN SODIUM/TAZOBACTAM 4.5 G in DEXT 5% WATER 100 ML IV SCH ×3 (00:33→13:11)
[2018-09-29] MEDS: IPRATROPIUM BROMIDE (0.02%) 0.5MG/2.5ML NEB HHN SCH ×6 (00:34→20:34)
[2018-09-29] MEDS: CLINDAMYCIN 600MG PREMIX 50 ML IV SCH ×3 (02:26→17:23)
[2018-09-29] MEDS: VANCOMYCIN 1 G PREMIX 200 ML IV SCH ×2 (02:56→13:15)
[2018-09-29] MEDS: OMEPRAZOLE 20MG CAPSULE EXTENDED RELEASE PO SCH (06:36)
[2018-09-29] MEDS: HYDROMORPHONE HCL/PF 2MG/ML CPJ IV PRN ×2 (06:37→15:12)
[2018-09-29] MEDS: BACLOFEN 10MG TABLET PO SCH ×3 (06:37→21:37)
[2018-09-29] MEDS: SODIUM CHLORIDE 0.9% INJ 3ML FLUSH IVF SCH ×3 (06:37→21:38)
[2018-09-29 07:06] LABS: HEMATOCRIT. 32.8 % (36.0-48.0); HEMOGLOBIN. 10.7 g/dL (12.0-16.0); MEAN CORPUSCULAR HEMOGLOBIN 29.6 pg (28.0-32.0); MEAN CORPUSCULAR VOLUME 90.5 fL (81.0-99.0); MEAN PLATELET VOLUME 7.3 fl (7.4-10.4); PLATELET 355 x1000/uL (130-400); RED BLOOD CELL COUNT 3.63 mill/uL (4.2-5.4); RED CELL DISTRIBUTION WIDTH 18.2 % (11.6-14.6)
[2018-09-29] MEDS: BLOOD SUGAR DIAGNOSTIC STRIP TEST SCH ×4 (07:39→21:36)
[2018-09-29 08:11] LABS: CHLORIDE 97 mEq/L (98-107)
[2018-09-29] MEDS: INSULIN LISPRO 100 UNITS/ML SUBCUT SCH ×4 (08:20→21:48)
[2018-09-29] MEDS: PREDNISONE 20MG TABLET PO SCH ×2 (09:01→17:21)
[2018-09-29] MEDS: LORATADINE 10MG TABLET PO SCH (09:01)
[2018-09-29] MEDS: METHIMAZOLE 5MG TABLET PO SCH (09:01)
[2018-09-29] MEDS: AZELASTINE HCL 137MCG/SPRAY NASAL PUMP BOTHNSTRLS SCH ×2 (09:01→21:35)
[2018-09-29] MEDS: ASPIRIN 81MG EC TABLET PO SCH (09:02)
[2018-09-29] MEDS: BUDESONIDE 0.5MG/2ML NEB HHN SCH ×2 (09:16→20:34)
[2018-09-29] MEDS: PAROXETINE HCL 10MG TABLET PO SCH (09:27)
[2018-09-29] MEDS: PROMETHAZINE/DEXTROMETHORPHAN 6.25-15MG/5ML BOTTLE 120ML PO PRN (09:53)
[2018-09-29] MEDS: ENOXAPARIN 40MG/0.4ML SYR SUBCUT SCH (12:00)
[2018-09-29] MEDS: HYDROCODONE/ACETAMINOPHEN 10/325MG TABLET PO PRN (13:26)
[2018-09-29] MEDS: CEFAZOLIN 2,000 MG in DEXT 5% WATER 100 ML IV SCH (17:21)
[2018-09-29] MEDS: LIDOCAINE 5% PATCH TOP SCH (17:23)
[2018-09-29 18:44] LABS: PLATELET ESTIMATE NORMAL
[2018-09-29] MEDS ORDERED: VANCOMYCIN 1250MG in DEXTROSE 5% WATER 250ML IV SCH (23:00)
[2018-09-30] VITALS (13 sets, daily range): BP systolic 112–172; BP diastolic 69–96
[2018-09-30] MEDS: CEFAZOLIN 2,000 MG in DEXT 5% WATER 100 ML IV SCH ×4 (00:20→23:13)
[2018-09-30] MEDS: DILTIAZEM HCL 60MG TABLET PO SCH ×5 (00:21→23:13)
[2018-09-30] MEDS: IPRATROPIUM BROMIDE (0.02%) 0.5MG/2.5ML NEB HHN SCH ×5 (01:25→20:35)
[2018-09-30] MEDS: CLINDAMYCIN 600MG PREMIX 50 ML IV SCH ×3 (01:45→17:35)
[2018-09-30] MEDS: HYDROMORPHONE HCL/PF 2MG/ML CPJ IV PRN (01:53)
[2018-09-30] MEDS: SODIUM CHLORIDE 0.9% INJ 3ML FLUSH IVF SCH ×3 (06:54→21:49)
[2018-09-30] MEDS: OMEPRAZOLE 20MG CAPSULE EXTENDED RELEASE PO SCH (06:55)
[2018-09-30 07:01] LABS: HEMATOCRIT. 31.3 % (36.0-48.0); HEMOGLOBIN. 10.7 g/dL (12.0-16.0); MEAN CORPUSCULAR HEMOGLOBIN 30.3 pg (28.0-32.0); PLATELET 399 x1000/uL (130-400); RED BLOOD CELL COUNT 3.52 mill/uL (4.2-5.4); RED CELL DISTRIBUTION WIDTH 18.1 % (11.6-14.6)
[2018-09-30 07:04] LABS: CHLORIDE 98 mEq/L (98-107)
[2018-09-30] MEDS: BLOOD SUGAR DIAGNOSTIC STRIP TEST SCH ×4 (07:30→20:24)
[2018-09-30] MEDS: BUDESONIDE 0.5MG/2ML NEB HHN SCH ×2 (08:14→20:35)
[2018-09-30] MEDS: AZELASTINE HCL 137MCG/SPRAY NASAL PUMP BOTHNSTRLS SCH ×2 (08:48→20:29)
[2018-09-30] MEDS: ASPIRIN 81MG EC TABLET PO SCH (08:52)
[2018-09-30] MEDS: METHIMAZOLE 5MG TABLET PO SCH (08:52)
[2018-09-30] MEDS: PAROXETINE HCL 10MG TABLET PO SCH (08:52)
[2018-09-30] MEDS: PREDNISONE 20MG TABLET PO SCH (08:52)
[2018-09-30] MEDS: LIDOCAINE 5% PATCH TOP SCH (08:52)
[2018-09-30] MEDS: LORATADINE 10MG TABLET PO SCH (08:52)
[2018-09-30] MEDS: INSULIN LISPRO 100 UNITS/ML SUBCUT SCH ×4 (08:53→20:30)
[2018-09-30] MEDS: HYDROCODONE/ACETAMINOPHEN 10/325MG TABLET PO PRN ×2 (10:18→17:40)
[2018-09-30] MEDS ORDERED: LOPERAMIDE HCL 2MG CAPSULE PO PRN (11:15)
[2018-09-30] MEDS ORDERED: POTASSIUM CHLORIDE 20MEQ TABLET SR PO NR (11:15)
[2018-09-30] MEDS: ENOXAPARIN 40MG/0.4ML SYR SUBCUT SCH (12:00)
[2018-09-30] MEDS: PROMETHAZINE/DEXTROMETHORPHAN 6.25-15MG/5ML BOTTLE 120ML PO PRN (15:26)
[2018-09-30] MEDS: BACLOFEN 10MG TABLET PO SCH ×2 (15:28→21:13)
[2018-09-30 19:23] LABS: NUCLEATED RED BLOOD CELLS 1 /100 WBC; PLATELET ESTIMATE NORMAL
[2018-09-30] MEDS: LORAZEPAM 2MG/ML CPJ IV PRN (21:13)
[2018-10-01] VITALS (21 sets, daily range): BP systolic 110–141; BP diastolic 64–95
[2018-10-01] MEDS: IPRATROPIUM BROMIDE (0.02%) 0.5MG/2.5ML NEB HHN SCH ×6 (00:46→20:21)
[2018-10-01] MEDS: CLINDAMYCIN 600MG PREMIX 50 ML IV SCH ×3 (01:05→16:36)
[2018-10-01] MEDS: HYDROMORPHONE HCL/PF 2MG/ML CPJ IV PRN ×2 (04:55→22:13)
[2018-10-01] MEDS: SODIUM CHLORIDE 0.9% INJ 3ML FLUSH IVF SCH ×3 (05:25→22:14)
[2018-10-01] MEDS: BACLOFEN 10MG TABLET PO SCH ×3 (05:26→23:06)
[2018-10-01] MEDS: DILTIAZEM HCL 60MG TABLET PO SCH ×3 (05:26→16:37)
[2018-10-01 06:44] LABS: CHLORIDE 99 mEq/L (98-107)
[2018-10-01 06:49] LABS: PHOSPHORUS 2.1 mg/dL (2.5-4.9)
[2018-10-01] MEDS: BLOOD SUGAR DIAGNOSTIC STRIP TEST SCH ×4 (07:30→21:00)
[2018-10-01] MEDS: BUDESONIDE 0.5MG/2ML NEB HHN SCH ×2 (08:00→20:21)
[2018-10-01] MEDS: ASPIRIN 81MG EC TABLET PO SCH (08:45)
[2018-10-01] MEDS: LORAZEPAM 2MG/ML CPJ IV PRN ×2 (08:45→23:07)
[2018-10-01] MEDS: LORATADINE 10MG TABLET PO SCH (08:45)
[2018-10-01] MEDS: PREDNISONE 20MG TABLET PO SCH (08:45)
[2018-10-01] MEDS: METHIMAZOLE 5MG TABLET PO SCH (08:45)
[2018-10-01] MEDS: PAROXETINE HCL 10MG TABLET PO SCH (08:45)
[2018-10-01] MEDS: CEFAZOLIN 2,000 MG in DEXT 5% WATER 100 ML IV SCH ×2 (08:45→16:36)
[2018-10-01] MEDS: AZELASTINE HCL 137MCG/SPRAY NASAL PUMP BOTHNSTRLS SCH ×2 (08:48→22:15)
[2018-10-01] MEDS: INSULIN LISPRO 100 UNITS/ML SUBCUT SCH ×4 (08:48→21:00)
[2018-10-01] MEDS: FAMOTIDINE 20MG TABLET PO SCH ×2 (10:52→22:13)
[2018-10-01] MEDS: LIDOCAINE 5% PATCH TOP SCH (10:53)
[2018-10-01] MEDS: HYDROCODONE/ACETAMINOPHEN 10/325MG TABLET PO PRN (12:34)
[2018-10-01] MEDS: PROMETHAZINE/DEXTROMETHORPHAN 6.25-15MG/5ML BOTTLE 120ML PO PRN ×2 (12:34→22:14)
[2018-10-01] MEDS: ENOXAPARIN 40MG/0.4ML SYR SUBCUT SCH (13:35)
[2018-10-01] MEDS ORDERED: POTASSIUM CHLORIDE 20MEQ TABLET SR PO SCH (14:00)
[2018-10-02] VITALS (17 sets, daily range): BP systolic 84–152; BP diastolic 25–90
[2018-10-02] MEDS: IPRATROPIUM BROMIDE (0.02%) 0.5MG/2.5ML NEB HHN SCH ×4 (00:34→20:55)
[2018-10-02] MEDS: CLINDAMYCIN 600MG PREMIX 50 ML IV SCH ×3 (00:55→17:27)
[2018-10-02] MEDS: CEFAZOLIN 2,000 MG in DEXT 5% WATER 100 ML IV SCH ×3 (00:55→16:48)
[2018-10-02] MEDS: DILTIAZEM HCL 60MG TABLET PO SCH ×4 (00:55→17:53)
[2018-10-02] MEDS: SODIUM CHLORIDE 0.9% INJ 3ML FLUSH IVF SCH ×2 (05:37→14:14)
[2018-10-02] MEDS: BACLOFEN 10MG TABLET PO SCH ×3 (05:40→23:59)
[2018-10-02] MEDS: HYDROMORPHONE HCL/PF 2MG/ML CPJ IV PRN ×2 (06:04→12:27)
[2018-10-02 07:08] LABS: HEMATOCRIT. 32.6 % (36.0-48.0); HEMOGLOBIN. 10.9 g/dL (12.0-16.0); MEAN CORPUSCULAR HEMOGLOBIN 29.9 pg (28.0-32.0); MEAN CORPUSCULAR VOLUME 89.4 fL (81.0-99.0); MEAN PLATELET VOLUME 6.5 fl (7.4-10.4); PLATELET 459 x1000/uL (130-400); RED BLOOD CELL COUNT 3.64 mill/uL (4.2-5.4); RED CELL DISTRIBUTION WIDTH 18.3 % (11.6-14.6)
[2018-10-02 07:20] LABS: CHLORIDE 97 mEq/L (98-107)
[2018-10-02 07:28] LABS: PHOSPHORUS 2.1 mg/dL (2.5-4.9)
[2018-10-02] MEDS: BLOOD SUGAR DIAGNOSTIC STRIP TEST SCH ×4 (07:42→21:00)
[2018-10-02] MEDS: INSULIN LISPRO 100 UNITS/ML SUBCUT SCH ×4 (08:00→23:54)
[2018-10-02] MEDS: BUDESONIDE 0.5MG/2ML NEB HHN SCH ×2 (08:53→20:55)
[2018-10-02] MEDS: ASPIRIN 81MG EC TABLET PO SCH (08:57)
[2018-10-02] MEDS: PAROXETINE HCL 10MG TABLET PO SCH (08:57)
[2018-10-02] MEDS: FAMOTIDINE 20MG TABLET PO SCH ×2 (08:57→20:50)
[2018-10-02] MEDS: LORATADINE 10MG TABLET PO SCH (08:57)
[2018-10-02] MEDS: PREDNISONE 20MG TABLET PO SCH (08:57)
[2018-10-02] MEDS: METHIMAZOLE 5MG TABLET PO SCH (08:57)
[2018-10-02] MEDS: AZELASTINE HCL 137MCG/SPRAY NASAL PUMP BOTHNSTRLS SCH ×2 (09:24→21:00)
[2018-10-02] MEDS: LIDOCAINE 5% PATCH TOP SCH (09:30)
[2018-10-02] MEDS ORDERED: SODIUM CHLORIDE 0.9% 500 ML IV ONE (10:00)
[2018-10-02 10:46] LABS: PLATELET ESTIMATE INCREASED
[2018-10-02] MEDS: ENOXAPARIN 40MG/0.4ML SYR SUBCUT SCH (11:56)
[2018-10-02] MEDS: ACETAMINOPHEN 325MG TABLET PO PRN (20:50)
[2018-10-03] VITALS: BP 115/71
[2018-10-03] MEDS: DILTIAZEM HCL 60MG TABLET PO SCH ×3 (00:32→12:00)
[2018-10-03] MEDS: CLINDAMYCIN 600MG PREMIX 50 ML IV SCH ×2 (00:50→08:46)
[2018-10-03] MEDS: CEFAZOLIN 2,000 MG in DEXT 5% WATER 100 ML IV SCH ×2 (00:50→08:17)
[2018-10-03 02:00] VITALS: BP 120/74
[2018-10-03 04:00] VITALS: BP 115/85
[2018-10-03] MEDS: IPRATROPIUM BROMIDE (0.02%) 0.5MG/2.5ML NEB HHN SCH ×4 (04:58→11:27)
[2018-10-03] MEDS: HYDROMORPHONE HCL/PF 2MG/ML CPJ IV PRN ×2 (05:21→11:23)
[2018-10-03 06:00] VITALS: BP 114/75
[2018-10-03] MEDS: BACLOFEN 10MG TABLET PO SCH (06:40)
[2018-10-03] MEDS: SODIUM CHLORIDE 0.9% INJ 3ML FLUSH IVF SCH ×2 (06:42)
[2018-10-03] MEDS: BLOOD SUGAR DIAGNOSTIC STRIP TEST SCH ×2 (07:32→11:55)
[2018-10-03] MEDS: INSULIN LISPRO 100 UNITS/ML SUBCUT SCH ×2 (08:00→13:00)
[2018-10-03 08:01] LABS: CHLORIDE 101 mEq/L (98-107)
[2018-10-03 08:02] LABS: HEMATOCRIT. 30.9 % (36.0-48.0); HEMOGLOBIN. 10.3 g/dL (12.0-16.0); MEAN CORPUSCULAR HEMOGLOBIN 29.7 pg (28.0-32.0); MEAN CORPUSCULAR VOLUME 88.8 fL (81.0-99.0); MEAN PLATELET VOLUME 6.4 fl (7.4-10.4); PLATELET 488 x1000/uL (130-400); RED BLOOD CELL COUNT 3.48 mill/uL (4.2-5.4); RED CELL DISTRIBUTION WIDTH 18.7 % (11.6-14.6)
[2018-10-03] MEDS: FAMOTIDINE 20MG TABLET PO SCH (08:19)
[2018-10-03] MEDS: PAROXETINE HCL 10MG TABLET PO SCH (08:19)
[2018-10-03] MEDS: METHIMAZOLE 5MG TABLET PO SCH (08:19)
[2018-10-03] MEDS: LORATADINE 10MG TABLET PO SCH (08:19)
[2018-10-03] MEDS: ASPIRIN 81MG EC TABLET PO SCH (08:19)
[2018-10-03] MEDS: PREDNISONE 20MG TABLET PO SCH (08:19)
[2018-10-03] MEDS: AZELASTINE HCL 137MCG/SPRAY NASAL PUMP BOTHNSTRLS SCH (08:45)
[2018-10-03] MEDS: ACETAMINOPHEN 325MG TABLET PO PRN (08:46)
[2018-10-03] MEDS: LIDOCAINE 5% PATCH TOP SCH (08:51)
[2018-10-03] MEDS: BUDESONIDE 0.5MG/2ML NEB HHN SCH (09:06)
[2018-10-03] MEDS ORDERED: POTASSIUM CHLORIDE INJ 40 MEQ in DEXT 5% WATER 250 ML IV NR (09:30)
[2018-10-03 09:51] VITALS: BP 210/110
[2018-10-03 11:46] LABS: PLATELET ESTIMATE INCREASED
[2018-10-03] MEDS: ENOXAPARIN 40MG/0.4ML SYR SUBCUT SCH (12:00)
[2018-10-03 12:03] VITALS: BP 136/82
== END 2018-10-03 12:45 | DRG 853 ==
LOC: ER 10:14 → CVICU 12:31 → EDBEDREQ 12:34 → EDBEDREQSVC 12:34 → ENRESERV 14:35 → 5EST 09-28 18:25
PROVIDERS: ADMIT Internal Medicine Critical Care Medicine; ATTEND Internal Medicine Critical Care Medicine
PROC: 5A09357 Assistance with Respiratory Ventilation, Less than 24 Consecutive Hours, Continuous Positive Airway Pressure (ICD-10-PCS; 2018-09-26)
PROC: 0JB90ZZ Excision of Buttock Subcutaneous Tissue and Fascia, Open Approach (ICD-10-PCS; principal; 2018-09-27)
PROC: 02HV33Z Insertion of Infusion Device into Superior Vena Cava, Percutaneous Approach (ICD-10-PCS; 2018-09-28)
PROC: B548ZZA Ultrasonography of Superior Vena Cava, Guidance (ICD-10-PCS; 2018-09-28)
PROC: 5A09357 Assistance with Respiratory Ventilation, Less than 24 Consecutive Hours, Continuous Positive Airway Pressure (ICD-10-PCS; 2018-10-02)
PROC: 5A09357 Assistance with Respiratory Ventilation, Less than 24 Consecutive Hours, Continuous Positive Airway Pressure (ICD-10-PCS; 2018-10-03)
DX: A41.01 Sepsis due to Methicillin susceptible Staphylococcus aureus (principal); J96.20 Acute and chronic respiratory failure, unspecified whether with hypoxia or hypercapnia; M72.6 Necrotizing fasciitis; J44.1 Chronic obstructive pulmonary disease with (acute) exacerbation; I47.1 Supraventricular tachycardia; E44.1 Mild protein-calorie malnutrition; L02.31 Cutaneous abscess of buttock; L03.317 Cellulitis of buttock; M62.82 Rhabdomyolysis; Z99.81 Dependence on supplemental oxygen; E78.5 Hyperlipidemia, unspecified; E05.90 Thyrotoxicosis, unspecified without thyrotoxic crisis or storm; I48.91 Unspecified atrial fibrillation; E03.9 Hypothyroidism, unspecified; G89.4 Chronic pain syndrome; T38.0X5A Adverse effect of glucocorticoids and synthetic analogues, initial encounter; M48.00 Spinal stenosis, site unspecified; I27.20 Pulmonary hypertension, unspecified; I11.9 Hypertensive heart disease without heart failure; D64.9 Anemia, unspecified; F41.9 Anxiety disorder, unspecified; J31.0 Chronic rhinitis; J32.9 Chronic sinusitis, unspecified; M48.061 Spinal stenosis, lumbar region without neurogenic claudication; M19.90 Unspecified osteoarthritis, unspecified site; R73.9 Hyperglycemia, unspecified; R19.7 Diarrhea, unspecified; M47.896 Other spondylosis, lumbar region; E87.6 Hypokalemia; Z87.01 Personal history of pneumonia (recurrent); Z82.49 Family history of ischemic heart disease and other diseases of the circulatory system; Z87.891 Personal history of nicotine dependence; Y92.89 Other specified places as the place of occurrence of the external cause; Z79.52 Long term (current) use of systemic steroids; Z93.1 Gastrostomy status; Z68.31 Body mass index [BMI] 31.0-31.9, adult; Z93.0 Tracheostomy status; Z79.899 Other long term (current) drug therapy
CPT/HCPCS: 36415; 36600; 71045; 72148; 76937; 80048; 80202; 80305; 82375; 82550; 82553; 82805; 82962; 83036; 83605; 83735; 83880; 84100; 84443; 84484; 87070; 87075; 87077; 88304; 93005; 93306; 94640; 94660; 96374; 96375; 96376; 97162; 97166; 97530; 97535; 99291; A6261; C1725; J0690; J1100; J1170; J1650; J1815; J1956; J2060; J2250; J2270; J2405; J2543; J2704; J2920; J2930; J3010; J3370; J3480; J3490; J7040; J7050; J7060; J7512; J7611; J7626; A4315

== ENCOUNTER 2019-01-11 23:20 | Inpatient (IN) | payer MEDICARE, MEDICAID ==
[~2019-01-11] VITALS: Ht 160 cm; Wt 70.8 kg
[2019-01-11] MEDS ORDERED: METHYLPREDNISOLONE SOD SUCC 125 MG/2 ML VIAL IV STA (23:31)
[2019-01-11] MEDS ORDERED: SODIUM CHLORIDE 0.9% 1,000 ML IV ONE (23:31)
[2019-01-11] MEDS ORDERED: ONDANSETRON HCL 4MG/2ML INJ IV STA (23:31)
[2019-01-11] MEDS ORDERED: IPRATROPIUM BROMIDE (0.02%) 0.5MG/2.5ML NEB HHN STA (23:31)
[2019-01-11] MEDS: ALBUTEROL (0.083%) 2.5MG/3ML NEB HHN SCH (23:35)
[2019-01-11] MEDS ORDERED: MAGNESIUM 2 G PREMIX 50 ML IV ONE (23:45)
[2019-01-11 23:47] LABS: EOSINOPHILS % 2.5 % (0.0-5.0); HEMATOCRIT. 41.3 % (36.0-48.0); HEMOGLOBIN. 13.4 g/dL (12.0-16.0); LYMPHOCYTES % 33.8 % (20.0-50.0); MEAN CORPUSCULAR HEMOGLOBIN 29.4 pg (28.0-32.0); MEAN CORPUSCULAR VOLUME 90.6 fL (81.0-99.0); MEAN PLATELET VOLUME 6.2 fl (7.4-10.4); MONOCYTES % 7.5 % (2.0-8.0); NEUTROPHILS % 55.2 % (40.0-76.0); PLATELET 484 x1000/uL (130-400); RED BLOOD CELL COUNT 4.56 mill/uL (4.2-5.4); RED CELL DISTRIBUTION WIDTH 16.9 % (11.6-14.6)
[2019-01-11 23:53] LABS: CHLORIDE 105 mEq/L (98-107)
[2019-01-12] VITALS (12 sets, daily range): BP systolic 135–171; BP diastolic 68–110
[2019-01-12] MEDS: ALBUTEROL (0.083%) 2.5MG/3ML NEB HHN SCH ×2 (00:10→00:40)
[2019-01-12] MEDS ORDERED: KETOROLAC 15MG/ML VIAL IV ONE (00:45)
[2019-01-12 00:50] LABS: BG BASE EXCESS 3.5 mmol/L (-2.0-2.0); BG BILEVEL POS AIRWAY PRESSURE 18/5; BG CARBOXYHEMOGLOBIN 0.3 % (0.5-1.5); BG DEOXYHEMOGLOBIN 0.5 % (0.0-5.0); BG FRACTION INSPIRED OXYGEN 60; BG HCO3 ACT 29.4 mmol/L (22.0-26.0); BG METHEMOGLOBIN 0.3 % (0.0-1.5); BG OXYGEN SATURATION 99.5 % (92.0-98.5); BG OXYHEMOGLOBIN 98.9 % (94.0-97.0); BG PCO2 49.5 mmHg (35.0-45.0); BG PH 7.391 (7.350-7.450); BG SAMPLE SITE RIGHT RADIAL; BG VENT MODE MASK - BIPAP; BG VENT RATE 18 set
[2019-01-12] MEDS ORDERED: IPRATROPIUM/ALBUTEROL 0.5-3(2.5)MG/3ML NEB HHN PRN (04:45)
[2019-01-12] MEDS ORDERED: ACETAMINOPHEN 325MG TABLET PO PRN (04:45)
[2019-01-12] MEDS ORDERED: PNEUMOCOCCAL 23-VAL P-SAC VAC 0.5 ML IM ONE (08:00)
[2019-01-12] MEDS: ENOXAPARIN 40MG/0.4ML SYR SUBCUT SCH (08:58)
[2019-01-12] MEDS: METHYLPREDNISOLONE SOD SUCC 40 MG/ML VIAL IV SCH ×3 (08:58→23:57)
[2019-01-12] MEDS ORDERED: INFLUENZA VIRUS VACCINE(AFLURIA) 0.5ML SYR IM ONE (10:00)
[2019-01-12] MEDS ORDERED: HYDROCODONE/ACETAMINOPHEN 5/325MG TABLET PO PRN (10:30)
[2019-01-12] MEDS ORDERED: HYDROCODONE/ACETAMINOPHEN 10/325MG TABLET PO PRN (10:30)
[2019-01-12] MEDS: DILTIAZEM HCL 120MG CAPSULE CD 24HR PO SCH (11:19)
[2019-01-12] MEDS ORDERED: ALPRAZOLAM 0.5 MG TABLET PO PRN (12:30)
[2019-01-12] MEDS: FAMOTIDINE 20MG/2ML VIAL IV SCH ×2 (12:57→21:57)
[2019-01-12] MEDS ORDERED: POTASSIUM CHLORIDE 20MEQ TABLET SR PO NR (13:30)
[2019-01-12] MEDS ORDERED: GUAIFENESIN-DM 200MG-20MG/10ML UDC PO PRN (13:30)
[2019-01-12] MEDS: IPRATROPIUM BROMIDE (0.02%) 0.5MG/2.5ML NEB HHN SCH ×2 (15:55→20:44)
[2019-01-12] MEDS ORDERED: IPRATROPIUM/ALBUTEROL 0.5-3(2.5)MG/3ML NEB HHN SCH (16:00)
[2019-01-12 16:14] LABS: T4 FREE 1.16 ng/dL (0.76-1.46)
[2019-01-12] MEDS: MONTELUKAST SODIUM 10MG TABLET PO SCH (16:50)
[2019-01-12] MEDS: HYDROCODONE/ACETAMINOPHEN 10/325MG TABLET PO PRN (16:51)
[2019-01-12] MEDS ORDERED: MONTELUKAST SODIUM 10MG TABLET PO SCH (17:00)
[2019-01-12] MEDS ORDERED: ONDANSETRON HCL 4MG/2ML INJ IV PRN (19:45)
[2019-01-12] MEDS: HYDROCODONE/ACETAMINOPHEN 5/325MG TABLET PO PRN (20:04)
[2019-01-12] MEDS: LORATADINE 10MG TABLET PO SCH (21:56)
[2019-01-12] MEDS: GUAIFENESIN 600MG ER TABLET PO SCH (21:56)
[2019-01-12] MEDS: FLUTICASONE PROPIONATE 50MCG/SPRAY BOTTLE BOTHNSTRLS SCH (21:57)
[2019-01-12] MEDS: LORAZEPAM 2MG/ML CPJ IV PRN (23:57)
[2019-01-13] VITALS (9 sets, daily range): BP systolic 120–152; BP diastolic 75–104
[2019-01-13] MEDS: IPRATROPIUM/ALBUTEROL 0.5-3(2.5)MG/3ML NEB HHN PRN ×2 (00:05→15:30)
[2019-01-13] MEDS: HYDROCODONE/ACETAMINOPHEN 10/325MG TABLET PO PRN ×3 (03:49→20:10)
[2019-01-13 07:22] LABS: BASOPHILS % 0.1 % (0.0-2.0); HEMATOCRIT. 35.4 % (36.0-48.0); HEMOGLOBIN. 11.7 g/dL (12.0-16.0); LYMPHOCYTES % 11.4 % (20.0-50.0); MEAN CORPUSCULAR HEMOGLOBIN 29.7 pg (28.0-32.0); MEAN CORPUSCULAR VOLUME 89.8 fL (81.0-99.0); MEAN PLATELET VOLUME 6.6 fl (7.4-10.4); MONOCYTES % 3.2 % (2.0-8.0); NEUTROPHILS % 85.3 % (40.0-76.0); PLATELET 424 x1000/uL (130-400); RED BLOOD CELL COUNT 3.94 mill/uL (4.2-5.4); RED CELL DISTRIBUTION WIDTH 16.3 % (11.6-14.6)
[2019-01-13 08:17] LABS: CHLORIDE 105 mEq/L (98-107)
[2019-01-13] MEDS: METHYLPREDNISOLONE SOD SUCC 40 MG/ML VIAL IV SCH ×3 (08:28→23:18)
[2019-01-13] MEDS: FAMOTIDINE 20MG/2ML VIAL IV SCH ×2 (08:29→20:03)
[2019-01-13] MEDS: HYDROCODONE/ACETAMINOPHEN 5/325MG TABLET PO PRN (08:30)
[2019-01-13] MEDS: DILTIAZEM HCL 120MG CAPSULE CD 24HR PO SCH (08:31)
[2019-01-13] MEDS: GUAIFENESIN 600MG ER TABLET PO SCH ×2 (08:31→20:03)
[2019-01-13] MEDS: ENOXAPARIN 40MG/0.4ML SYR SUBCUT SCH (08:32)
[2019-01-13] MEDS: IPRATROPIUM BROMIDE (0.02%) 0.5MG/2.5ML NEB HHN SCH ×5 (08:46→23:49)
[2019-01-13] MEDS: FLUTICASONE PROPIONATE 50MCG/SPRAY BOTTLE BOTHNSTRLS SCH ×2 (09:00→20:03)
[2019-01-13] MEDS ORDERED: CEFTRIAXONE 1,000 MG in DEXTROSE 5% WATER 50 ML IV SCH (16:00)
[2019-01-13] MEDS ORDERED: PROMETHAZINE/DEXTROMETHORPHAN 6.25-15MG/5ML BOTTLE 120ML PO PRN (16:00)
[2019-01-13] MEDS: MONTELUKAST SODIUM 10MG TABLET PO SCH (16:47)
[2019-01-13] MEDS: DIPHENHYDRAMINE 50MG/ML VIAL IV PRN ×2 (16:47→23:18)
[2019-01-13] MEDS: NYSTATIN 100,000 UNITS/ML 5ML UDC SSW SCH ×2 (17:13→23:18)
[2019-01-13] MEDS: GUAIFENESIN-DM 200MG-20MG/10ML UDC PO PRN (18:59)
[2019-01-13] MEDS: LORATADINE 10MG TABLET PO SCH (20:03)
[2019-01-13] MEDS: LORAZEPAM 2MG/ML CPJ IV PRN (23:26)
[2019-01-14] VITALS (8 sets, daily range): BP systolic 130–165; BP diastolic 51–93
[2019-01-14] MEDS: IPRATROPIUM BROMIDE (0.02%) 0.5MG/2.5ML NEB HHN SCH ×5 (04:33→20:43)
[2019-01-14] MEDS: NYSTATIN 100,000 UNITS/ML 5ML UDC SSW SCH ×4 (05:34→23:39)
[2019-01-14] MEDS: HYDROCODONE/ACETAMINOPHEN 10/325MG TABLET PO PRN ×3 (05:37→20:33)
[2019-01-14] MEDS: GUAIFENESIN-DM 200MG-20MG/10ML UDC PO PRN ×2 (06:17→12:50)
[2019-01-14 06:28] LABS: HEMATOCRIT. 35.4 % (36.0-48.0); HEMOGLOBIN. 11.4 g/dL (12.0-16.0); MEAN CORPUSCULAR HEMOGLOBIN 29.2 pg (28.0-32.0); MEAN CORPUSCULAR VOLUME 90.6 fL (81.0-99.0); MEAN PLATELET VOLUME 6.6 fl (7.4-10.4); PLATELET 409 x1000/uL (130-400); RED CELL DISTRIBUTION WIDTH 16.5 % (11.6-14.6)
[2019-01-14 06:39] LABS: CHLORIDE 104 mEq/L (98-107)
[2019-01-14] MEDS: GUAIFENESIN 600MG ER TABLET PO SCH ×2 (08:48→20:27)
[2019-01-14] MEDS: FAMOTIDINE 20MG/2ML VIAL IV SCH (08:52)
[2019-01-14] MEDS: DILTIAZEM HCL 120MG CAPSULE CD 24HR PO SCH (08:52)
[2019-01-14] MEDS: METHYLPREDNISOLONE SOD SUCC 40 MG/ML VIAL IV SCH ×3 (08:52→23:39)
[2019-01-14] MEDS: DIPHENHYDRAMINE 50MG/ML VIAL IV PRN ×2 (08:53→20:27)
[2019-01-14] MEDS: ENOXAPARIN 40MG/0.4ML SYR SUBCUT SCH (08:53)
[2019-01-14] MEDS: FLUTICASONE PROPIONATE 50MCG/SPRAY BOTTLE BOTHNSTRLS SCH (09:02)
[2019-01-14 10:42] LABS: PLATELET ESTIMATE NORMAL
[2019-01-14] MEDS ORDERED: DEXTROSE 50% WATER 50ML SYRINGE IV PRN (10:45)
[2019-01-14] MEDS: HYDROCODONE/ACETAMINOPHEN 5/325MG TABLET PO PRN ×2 (10:58→23:39)
[2019-01-14] MEDS: BLOOD SUGAR DIAGNOSTIC STRIP TEST SCH ×3 (12:27→20:20)
[2019-01-14] MEDS: INSULIN LISPRO 100 UNITS/ML SUBCUT SCH ×3 (12:52→20:28)
[2019-01-14] MEDS ORDERED: SODIUM CHLORIDE 45ML SPRAY NS PRN (15:00)
[2019-01-14] MEDS: MONTELUKAST SODIUM 10MG TABLET PO SCH (16:06)
[2019-01-14] MEDS: LORATADINE 10MG TABLET PO SCH (16:06)
[2019-01-14] MEDS: FAMOTIDINE 20MG TABLET PO SCH (18:16)
[2019-01-14] MEDS: AZELASTINE HCL 137MCG/SPRAY NASAL PUMP BOTHNSTRLS SCH ×2 (18:16→23:40)
[2019-01-14] MEDS: LORAZEPAM 2MG/ML CPJ IV PRN (23:39)
[2019-01-15] VITALS (11 sets, daily range): BP systolic 133–166; BP diastolic 80–101
[2019-01-15] MEDS: IPRATROPIUM BROMIDE (0.02%) 0.5MG/2.5ML NEB HHN SCH ×3 (00:18→07:55)
[2019-01-15] MEDS: HYDROCODONE/ACETAMINOPHEN 10/325MG TABLET PO PRN ×3 (05:16→21:36)
[2019-01-15] MEDS ORDERED: LIDOCAINE HCL/EPINEPHRINE 1%-EPI 1:100,000 20 ML VIAL INFIL SCH (06:00)
[2019-01-15] MEDS: NYSTATIN 100,000 UNITS/ML 5ML UDC SSW SCH ×4 (06:20→23:23)
[2019-01-15] MEDS: DIPHENHYDRAMINE 50MG/ML VIAL IV PRN (06:33)
[2019-01-15 06:36] LABS: HEMATOCRIT. 36.5 % (36.0-48.0); HEMOGLOBIN. 12.3 g/dL (12.0-16.0); MEAN CORPUSCULAR HEMOGLOBIN 30.3 pg (28.0-32.0); MEAN CORPUSCULAR VOLUME 90.3 fL (81.0-99.0); MEAN PLATELET VOLUME 6.4 fl (7.4-10.4); PLATELET 449 x1000/uL (130-400); RED BLOOD CELL COUNT 4.05 mill/uL (4.2-5.4); RED CELL DISTRIBUTION WIDTH 16.4 % (11.6-14.6)
[2019-01-15] MEDS: BLOOD SUGAR DIAGNOSTIC STRIP TEST SCH ×4 (07:30→20:06)
[2019-01-15] MEDS: INSULIN LISPRO 100 UNITS/ML SUBCUT SCH ×4 (08:00→20:17)
[2019-01-15 08:31] LABS: CHLORIDE 103 mEq/L (98-107)
[2019-01-15] MEDS: LORAZEPAM 2MG/ML CPJ IV PRN ×2 (08:44→23:23)
[2019-01-15] MEDS: FAMOTIDINE 20MG TABLET PO SCH ×2 (08:44→18:01)
[2019-01-15] MEDS: GUAIFENESIN 600MG ER TABLET PO SCH ×2 (08:44→20:18)
[2019-01-15] MEDS: METHYLPREDNISOLONE SOD SUCC 40 MG/ML VIAL IV SCH ×2 (08:44→20:16)
[2019-01-15] MEDS: LORATADINE 10MG TABLET PO SCH (08:44)
[2019-01-15] MEDS: DILTIAZEM HCL 120MG CAPSULE CD 24HR PO SCH (08:45)
[2019-01-15] MEDS: GUAIFENESIN-DM 200MG-20MG/10ML UDC PO PRN ×2 (08:45→21:07)
[2019-01-15] MEDS: ENOXAPARIN 40MG/0.4ML SYR SUBCUT SCH (09:00)
[2019-01-15 09:08] LABS: DRVVT LA 32.3 sec (0.0-47.0); LUPUS ANTICOAG INTERPRETATION Comment: (.)
[2019-01-15] MEDS: AZELASTINE HCL 137MCG/SPRAY NASAL PUMP BOTHNSTRLS SCH ×2 (09:08→20:19)
[2019-01-15 09:48] LABS: NUCLEATED RED BLOOD CELLS 1 /100 WBC; PLATELET ESTIMATE INCREASED
[2019-01-15] MEDS: IPRATROPIUM/ALBUTEROL 0.5-3(2.5)MG/3ML NEB HHN PRN (12:14)
[2019-01-15 13:06] LABS: ANTI-MYELOPEROXIDASE AB < 9.0 U/mL (0.0-9.0); ANTI-NUCLEAR ANTIBODIES DIRECT Negative (Negative); ANTI-PROTEINASE 3 ABS < 3.5 U/mL (0.0-3.5); ATYPICAL P-ANCA <1:20 titer (Neg:<1:20); CYTOPLASMIC C-ANCA <1:20 titer (Neg:<1:20); PERINUCLEAR P-ANCA <1:20 titer (Neg:<1:20)
[2019-01-15] MEDS: ACETYLCYSTEINE 100MG/ML 10% VIAL 4ML INH SCH (15:53)
[2019-01-15] MEDS: ALBUTEROL (0.083%) 2.5MG/3ML NEB HHN SCH ×2 (15:53→21:23)
[2019-01-15] MEDS: MONTELUKAST SODIUM 10MG TABLET PO SCH (18:01)
[2019-01-16] VITALS (13 sets, daily range): BP systolic 102–179; BP diastolic 31–104
[2019-01-16] MEDS: ACETYLCYSTEINE 100MG/ML 10% VIAL 4ML INH SCH ×3 (00:33→14:08)
[2019-01-16] MEDS: ALBUTEROL (0.083%) 2.5MG/3ML NEB HHN SCH ×6 (00:33→20:14)
[2019-01-16] MEDS: NYSTATIN 100,000 UNITS/ML 5ML UDC SSW SCH ×4 (05:14→23:10)
[2019-01-16] MEDS: BLOOD SUGAR DIAGNOSTIC STRIP TEST SCH ×4 (07:30→21:04)
[2019-01-16 08:04] LABS: HEMATOCRIT. 37.2 % (36.0-48.0); HEMOGLOBIN. 11.9 g/dL (12.0-16.0); LYMPHOCYTES % 7.6 % (20.0-50.0); MEAN CORPUSCULAR HEMOGLOBIN 29.1 pg (28.0-32.0); MEAN CORPUSCULAR VOLUME 91.1 fL (81.0-99.0); MEAN PLATELET VOLUME 6.5 fl (7.4-10.4); MONOCYTES % 3.6 % (2.0-8.0); NEUTROPHILS % 88.8 % (40.0-76.0); PLATELET 419 x1000/uL (130-400); RED BLOOD CELL COUNT 4.09 mill/uL (4.2-5.4); RED CELL DISTRIBUTION WIDTH 16.6 % (11.6-14.6)
[2019-01-16 08:29] LABS: CHLORIDE 105 mEq/L (98-107)
[2019-01-16] MEDS: FAMOTIDINE 20MG TABLET PO SCH ×2 (08:32→17:57)
[2019-01-16] MEDS: LORATADINE 10MG TABLET PO SCH (08:32)
[2019-01-16] MEDS: DILTIAZEM HCL 120MG CAPSULE CD 24HR PO SCH (08:32)
[2019-01-16] MEDS: GUAIFENESIN 600MG ER TABLET PO SCH ×2 (08:32→21:03)
[2019-01-16] MEDS: INSULIN LISPRO 100 UNITS/ML SUBCUT SCH ×4 (08:33→21:04)
[2019-01-16] MEDS: ENOXAPARIN 40MG/0.4ML SYR SUBCUT SCH (08:36)
[2019-01-16] MEDS: METHYLPREDNISOLONE SOD SUCC 40 MG/ML VIAL IV SCH ×2 (08:39→21:02)
[2019-01-16] MEDS: AZELASTINE HCL 137MCG/SPRAY NASAL PUMP BOTHNSTRLS SCH ×2 (08:40→21:02)
[2019-01-16] MEDS: HYDROCODONE/ACETAMINOPHEN 10/325MG TABLET PO PRN ×3 (08:43→23:08)
[2019-01-16] MEDS ORDERED: LACTULOSE 20G/30ML UDC PO NR (11:00)
[2019-01-16] MEDS: GUAIFENESIN-DM 200MG-20MG/10ML UDC PO PRN (11:03)
[2019-01-16] MEDS: LORAZEPAM 2MG/ML CPJ IV PRN (15:52)
[2019-01-16] MEDS: MONTELUKAST SODIUM 10MG TABLET PO SCH (17:57)
[2019-01-16] MEDS: CLONIDINE 0.1MG TABLET PO PRN (21:05)
[2019-01-17] VITALS (9 sets, daily range): BP systolic 132–153; BP diastolic 80–102
[2019-01-17] MEDS: ALBUTEROL (0.083%) 2.5MG/3ML NEB HHN SCH ×6 (00:09→20:05)
[2019-01-17] MEDS: ACETYLCYSTEINE 100MG/ML 10% VIAL 4ML INH SCH ×3 (00:09→16:33)
[2019-01-17] MEDS: LORAZEPAM 2MG/ML CPJ IV PRN ×3 (00:33→15:08)
[2019-01-17] MEDS: NYSTATIN 100,000 UNITS/ML 5ML UDC SSW SCH ×4 (05:57→23:32)
[2019-01-17] MEDS: HYDROCODONE/ACETAMINOPHEN 10/325MG TABLET PO PRN ×3 (05:58→21:49)
[2019-01-17] MEDS: BLOOD SUGAR DIAGNOSTIC STRIP TEST SCH ×4 (08:04→21:48)
[2019-01-17] MEDS: LORATADINE 10MG TABLET PO SCH (08:22)
[2019-01-17] MEDS: METHYLPREDNISOLONE SOD SUCC 40 MG/ML VIAL IV SCH ×2 (08:22→21:47)
[2019-01-17] MEDS: DILTIAZEM HCL 120MG CAPSULE CD 24HR PO SCH (08:24)
[2019-01-17] MEDS: FAMOTIDINE 20MG TABLET PO SCH ×2 (08:25→17:43)
[2019-01-17] MEDS: ENOXAPARIN 40MG/0.4ML SYR SUBCUT SCH ×2 (08:25→08:38)
[2019-01-17] MEDS: AZELASTINE HCL 137MCG/SPRAY NASAL PUMP BOTHNSTRLS SCH ×2 (08:28→21:00)
[2019-01-17] MEDS: GUAIFENESIN-DM 200MG-20MG/10ML UDC PO PRN (08:29)
[2019-01-17] MEDS: INSULIN LISPRO 100 UNITS/ML SUBCUT SCH ×4 (08:30→21:00)
[2019-01-17] MEDS: GUAIFENESIN 600MG ER TABLET PO SCH ×2 (08:42→21:48)
[2019-01-17] MEDS: LEVOFLOXACIN 500MG TABLET PO SCH (10:13)
[2019-01-17] MEDS: HYDROCODONE/ACETAMINOPHEN 5/325MG TABLET PO PRN (17:43)
[2019-01-17] MEDS: MONTELUKAST SODIUM 10MG TABLET PO SCH (17:43)
[2019-01-18] MEDS: ALBUTEROL (0.083%) 2.5MG/3ML NEB HHN SCH ×6 (00:07→21:10)
[2019-01-18] MEDS: ACETYLCYSTEINE 100MG/ML 10% VIAL 4ML INH SCH ×4 (00:12→22:00)
[2019-01-18 04:00] VITALS: BP 133/76
[2019-01-18] MEDS: LORAZEPAM 2MG/ML CPJ IV PRN ×2 (04:26→18:44)
[2019-01-18] MEDS: HYDROCODONE/ACETAMINOPHEN 10/325MG TABLET PO PRN (04:27)
[2019-01-18] MEDS: NYSTATIN 100,000 UNITS/ML 5ML UDC SSW SCH ×3 (05:25→17:52)
[2019-01-18] MEDS: BLOOD SUGAR DIAGNOSTIC STRIP TEST SCH ×4 (07:30→20:12)
[2019-01-18 08:00] VITALS: BP 157/86
[2019-01-18] MEDS: DILTIAZEM HCL 120MG CAPSULE CD 24HR PO SCH (08:25)
[2019-01-18] MEDS: GUAIFENESIN 600MG ER TABLET PO SCH ×2 (08:25→20:16)
[2019-01-18] MEDS: FAMOTIDINE 20MG TABLET PO SCH ×2 (08:25→17:52)
[2019-01-18] MEDS: AZELASTINE HCL 137MCG/SPRAY NASAL PUMP BOTHNSTRLS SCH (08:25)
[2019-01-18] MEDS: LORATADINE 10MG TABLET PO SCH (08:25)
[2019-01-18] MEDS: INSULIN LISPRO 100 UNITS/ML SUBCUT SCH ×4 (08:27→20:22)
[2019-01-18] MEDS: METHYLPREDNISOLONE SOD SUCC 40 MG/ML VIAL IV SCH (08:31)
[2019-01-18] MEDS: ENOXAPARIN 40MG/0.4ML SYR SUBCUT SCH (08:31)
[2019-01-18] MEDS: HYDROCODONE/ACETAMINOPHEN 5/325MG TABLET PO PRN ×2 (09:49→16:31)
[2019-01-18] MEDS: LEVOFLOXACIN 500MG TABLET PO SCH (11:04)
[2019-01-18] MEDS ORDERED: TERBUTALINE SULFATE 1MG/ML VIAL SUBCUT NR (15:00)
[2019-01-18 16:00] VITALS: BP 152/90
[2019-01-18 17:07] LABS: HEMATOCRIT. 37.1 % (36.0-48.0); HEMOGLOBIN. 12.1 g/dL (12.0-16.0); MEAN CORPUSCULAR HEMOGLOBIN 29.6 pg (28.0-32.0); MEAN CORPUSCULAR VOLUME 90.5 fL (81.0-99.0); MEAN PLATELET VOLUME 6.3 fl (7.4-10.4); PLATELET 381 x1000/uL (130-400); RED CELL DISTRIBUTION WIDTH 16.8 % (11.6-14.6)
[2019-01-18 17:11] LABS: CHLORIDE 101 mEq/L (98-107)
[2019-01-18 17:21] LABS: PLATELET ESTIMATE NORMAL
[2019-01-18] MEDS: CLONIDINE 0.1MG TABLET PO PRN (18:39)
[2019-01-18 20:00] VITALS: BP 160/99
[2019-01-18] MEDS: THEOPHYLLINE ANHYDROUS 80 MG/15 ML 120ML PO SCH (21:37)
[2019-01-19] MEDS: GUAIFENESIN-DM 200MG-20MG/10ML UDC PO PRN ×2 (00:07→21:44)
[2019-01-19] MEDS: HYDROCODONE/ACETAMINOPHEN 5/325MG TABLET PO PRN (00:08)
[2019-01-19] MEDS: ALBUTEROL (0.083%) 2.5MG/3ML NEB HHN SCH ×6 (00:49→20:16)
[2019-01-19] MEDS: LORAZEPAM 2MG/ML CPJ IV PRN ×2 (01:50→17:39)
[2019-01-19] MEDS: HYDROCODONE/ACETAMINOPHEN 10/325MG TABLET PO PRN ×4 (03:33→21:19)
[2019-01-19 04:00] VITALS: BP 157/90
[2019-01-19] MEDS: THEOPHYLLINE ANHYDROUS 80 MG/15 ML 120ML PO SCH ×3 (06:05→21:17)
[2019-01-19] MEDS: NYSTATIN 100,000 UNITS/ML 5ML UDC SSW SCH ×4 (06:05→17:50)
[2019-01-19 08:00] VITALS: BP 160/110
[2019-01-19] MEDS: BLOOD SUGAR DIAGNOSTIC STRIP TEST SCH ×4 (08:15→21:27)
[2019-01-19] MEDS: INSULIN LISPRO 100 UNITS/ML SUBCUT SCH ×4 (08:27→21:33)
[2019-01-19] MEDS: LORATADINE 10MG TABLET PO SCH (08:35)
[2019-01-19] MEDS: DILTIAZEM HCL 120MG CAPSULE CD 24HR PO SCH (08:35)
[2019-01-19] MEDS: GUAIFENESIN 600MG ER TABLET PO SCH ×2 (08:35→21:17)
[2019-01-19] MEDS: PREDNISONE 20MG TABLET PO SCH (08:35)
[2019-01-19] MEDS: FAMOTIDINE 20MG TABLET PO SCH ×2 (08:35→17:50)
[2019-01-19] MEDS: ENOXAPARIN 40MG/0.4ML SYR SUBCUT SCH (08:36)
[2019-01-19] MEDS: ACETYLCYSTEINE 100MG/ML 10% VIAL 4ML INH SCH ×2 (08:53→16:37)
[2019-01-19] MEDS ORDERED: SIMETHICONE 80MG TABLET CHEW PO PRN (10:30)
[2019-01-19] MEDS ORDERED: LOPERAMIDE HCL 2MG CAPSULE PO NR (11:15)
[2019-01-19] MEDS: LEVOFLOXACIN 500MG TABLET PO SCH (11:57)
[2019-01-19 12:00] VITALS: BP 165/93
[2019-01-19] MEDS: METHIMAZOLE 5MG TABLET PO SCH (12:55)
[2019-01-19] MEDS: CLONIDINE 0.1MG TABLET PO PRN (12:55)
[2019-01-19] MEDS: METRONIDAZOLE 250MG TABLET PO SCH ×2 (14:29→21:17)
[2019-01-19 16:00] VITALS: BP 130/89
[2019-01-19 18:00] VITALS: BP 140/89
[2019-01-19 20:00] VITALS: BP 133/78
[2019-01-20] MEDS: ALBUTEROL (0.083%) 2.5MG/3ML NEB HHN SCH ×5 (00:21→17:13)
[2019-01-20] MEDS: ACETYLCYSTEINE 100MG/ML 10% VIAL 4ML INH SCH ×2 (00:22→09:07)
[2019-01-20] MEDS: NYSTATIN 100,000 UNITS/ML 5ML UDC SSW SCH ×4 (00:34→17:17)
[2019-01-20] MEDS: LORAZEPAM 2MG/ML CPJ IV PRN (00:35)
[2019-01-20] MEDS: METRONIDAZOLE 250MG TABLET PO SCH ×2 (05:48→13:04)
[2019-01-20] MEDS: THEOPHYLLINE ANHYDROUS 80 MG/15 ML 120ML PO SCH ×2 (05:48→13:04)
[2019-01-20] MEDS: HYDROCODONE/ACETAMINOPHEN 10/325MG TABLET PO PRN ×2 (05:54→10:39)
[2019-01-20 05:56] VITALS: BP 148/97
[2019-01-20 07:05] LABS: BASOPHILS % 0.2 % (0.0-2.0); EOSINOPHILS % 0.4 % (0.0-5.0); HEMATOCRIT. 34.6 % (36.0-48.0); HEMOGLOBIN. 11.3 g/dL (12.0-16.0); LYMPHOCYTES % 11.8 % (20.0-50.0); MEAN CORPUSCULAR HEMOGLOBIN 29.6 pg (28.0-32.0); MEAN CORPUSCULAR VOLUME 90.2 fL (81.0-99.0); MEAN PLATELET VOLUME 6.7 fl (7.4-10.4); MONOCYTES % 9.9 % (2.0-8.0); NEUTROPHILS % 77.7 % (40.0-76.0); PLATELET 350 x1000/uL (130-400); RED BLOOD CELL COUNT 3.83 mill/uL (4.2-5.4); RED CELL DISTRIBUTION WIDTH 16.9 % (11.6-14.6)
[2019-01-20 08:00] VITALS: BP 152/90
[2019-01-20] MEDS: INSULIN LISPRO 100 UNITS/ML SUBCUT SCH ×3 (08:00→17:26)
[2019-01-20] MEDS: BLOOD SUGAR DIAGNOSTIC STRIP TEST SCH ×3 (08:28→17:18)
[2019-01-20 08:46] LABS: CHLORIDE 100 mEq/L (98-107)
[2019-01-20] MEDS: ENOXAPARIN 40MG/0.4ML SYR SUBCUT SCH (09:00)
[2019-01-20] MEDS: METHIMAZOLE 5MG TABLET PO SCH (10:05)
[2019-01-20] MEDS: FAMOTIDINE 20MG TABLET PO SCH ×2 (10:06→17:17)
[2019-01-20] MEDS: PREDNISONE 20MG TABLET PO SCH (10:06)
[2019-01-20] MEDS: GUAIFENESIN 600MG ER TABLET PO SCH (10:07)
[2019-01-20] MEDS: LORATADINE 10MG TABLET PO SCH (10:07)
[2019-01-20] MEDS: LEVOFLOXACIN 500MG TABLET PO SCH (10:07)
[2019-01-20] MEDS: DILTIAZEM HCL 120MG CAPSULE CD 24HR PO SCH ×2 (10:10→14:45)
[2019-01-20] MEDS ORDERED: POTASSIUM CHLORIDE 20MEQ TABLET SR PO NR (10:30)
[2019-01-20 12:00] VITALS: BP 153/103
[2019-01-20] MEDS ORDERED: FAMO20TA8 PO (12:04)
[2019-01-20] MEDS ORDERED: P20 PO (12:04)
[2019-01-20] MEDS ORDERED: CLAR10 PO (12:04)
[2019-01-20] MEDS ORDERED: TAP5 PO (12:04)
[2019-01-20] MEDS ORDERED: DILT120C88 PO (12:04)
[2019-01-20] MEDS ORDERED: LORA-249 MT (12:04)
[2019-01-20] MEDS ORDERED: THEO400T PO (12:04)
[2019-01-20] MEDS ORDERED: GUAI600T44 PO (12:04)
[2019-01-20] MEDS ORDERED: LEVO500T2 PO (12:04)
[2019-01-20] MEDS ORDERED: METR250T PO (12:04)
[2019-01-20] MEDS ORDERED: HYDR-4009 PO (14:13)
[2019-01-20] MEDS: HYDROCODONE/ACETAMINOPHEN 5/325MG TABLET PO PRN (14:40)
[2019-01-20 17:03] VITALS: BP 125/95
[2019-01-20] MEDS: GUAIFENESIN-DM 200MG-20MG/10ML UDC PO PRN (17:17)
== END 2019-01-20 18:10 | disposition home or self-care (01) | DRG 853 ==
LOC: ER 23:20 → EDBEDREQ 23:38 → 5EST 23:45 → EDBEDREQTM 23:47 → EDBEDREQ 23:47 → EDBEDREQSVC 23:47 → ENRESERV 23:52
PROVIDERS: ADMIT Internal Medicine; ATTEND Internal Medicine
PROC: 5A09357 Assistance with Respiratory Ventilation, Less than 24 Consecutive Hours, Continuous Positive Airway Pressure (ICD-10-PCS; 2019-01-11)
PROC: 5A09357 Assistance with Respiratory Ventilation, Less than 24 Consecutive Hours, Continuous Positive Airway Pressure (ICD-10-PCS; 2019-01-12)
PROC: 5A09357 Assistance with Respiratory Ventilation, Less than 24 Consecutive Hours, Continuous Positive Airway Pressure (ICD-10-PCS; 2019-01-13)
PROC: 5A09357 Assistance with Respiratory Ventilation, Less than 24 Consecutive Hours, Continuous Positive Airway Pressure (ICD-10-PCS; 2019-01-14)
PROC: 0JB70ZZ Excision of Back Subcutaneous Tissue and Fascia, Open Approach (ICD-10-PCS; principal; 2019-01-15)
PROC: 5A09357 Assistance with Respiratory Ventilation, Less than 24 Consecutive Hours, Continuous Positive Airway Pressure (ICD-10-PCS; 2019-01-15)
PROC: 5A09357 Assistance with Respiratory Ventilation, Less than 24 Consecutive Hours, Continuous Positive Airway Pressure (ICD-10-PCS; 2019-01-16)
PROC: 5A09357 Assistance with Respiratory Ventilation, Less than 24 Consecutive Hours, Continuous Positive Airway Pressure (ICD-10-PCS; 2019-01-18)
DX: A41.59 Other Gram-negative sepsis (principal); J96.20 Acute and chronic respiratory failure, unspecified whether with hypoxia or hypercapnia; J44.1 Chronic obstructive pulmonary disease with (acute) exacerbation; E44.1 Mild protein-calorie malnutrition; N39.0 Urinary tract infection, site not specified; E24.9 Cushing's syndrome, unspecified; I27.20 Pulmonary hypertension, unspecified; M19.90 Unspecified osteoarthritis, unspecified site; I16.0 Hypertensive urgency; E78.5 Hyperlipidemia, unspecified; G89.29 Other chronic pain; J00 Acute nasopharyngitis [common cold]; I10 Essential (primary) hypertension; E87.6 Hypokalemia; E03.9 Hypothyroidism, unspecified; Z87.01 Personal history of pneumonia (recurrent); M54.9 Dorsalgia, unspecified; E05.90 Thyrotoxicosis, unspecified without thyrotoxic crisis or storm; Z99.81 Dependence on supplemental oxygen; Z87.891 Personal history of nicotine dependence; J84.10 Pulmonary fibrosis, unspecified; R65.20 Severe sepsis without septic shock; T38.0X5A Adverse effect of glucocorticoids and synthetic analogues, initial encounter; R73.9 Hyperglycemia, unspecified; M54.5 Low back pain; F41.9 Anxiety disorder, unspecified; X58.XXXA Exposure to other specified factors, initial encounter; Z68.27 Body mass index [BMI] 27.0-27.9, adult
CPT/HCPCS: 36415; 36600; 71045; 80048; 82375; 82805; 82962; 83520; 83605; 83880; 84134; 84439; 84443; 84481; 84484; 84550; 85613; 85651; 85732; 86038; 86256; 86431; 87070; 87077; 87186; 90686; 90732; 93005; 94640; 94660; 99285; J0696; J1200; J1650; J1815; J1885; J2060; J2405; J2920; J2930; J3105; J3475; J3490; J7030; J7060; J7512; J7608; J7611; J7620

== ENCOUNTER 2019-05-25 12:45 | Inpatient (IN) | payer MEDICARE, MEDICAID ==
[~2019-05-25] VITALS: Ht 162.6 cm; Wt 66.7 kg
[~2019-05-25 12:45] MED LIST changes: +CLAR10 PO; +DILT120C88 PO; +FAMO20TA8 PO; +GUAI600T44 PO; +HYDR-4009 PO; +LEVO500T2 PO; -LIDO700A TP; +LORA-249 MT; +METR250T PO; -MONT5TAB13 PO; +P20 PO; +TAP5 PO; +THEO400T PO
[2019-05-25] MEDS ORDERED: METHYLPREDNISOLONE SOD SUCC 125 MG/2 ML VIAL IV STA (13:14)
[2019-05-25] MEDS ORDERED: IPRATROPIUM BROMIDE (0.02%) 0.5MG/2.5ML NEB HHN STA (13:14)
[2019-05-25] MEDS ORDERED: MORPHINE SULFATE 4 MG/ML CPJ (NOT FOR IM USE) IV STA (13:14)
[2019-05-25] MEDS ORDERED: ONDANSETRON HCL 4MG/2ML INJ IV STA (13:14)
[2019-05-25] MEDS ORDERED: MAGNESIUM 2 G PREMIX 50 ML IV ONE (13:15)
[2019-05-25] MEDS: ALBUTEROL (0.083%) 2.5MG/3ML NEB HHN SCH ×3 (13:41→14:30)
[2019-05-25 13:52] LABS: CLARITY URINE CLEAR (CLEAR); COLOR URINE YELLOW (YELLOW); KETONES URINE NEGATIVE (NEGATIVE); LEUKOCYTE ESTERASE URINE NEGATIVE (NEGATIVE); NITRITE URINE NEGATIVE (NEGATIVE); OCCULT BLOOD URINE NEGATIVE (NEGATIVE); PH URINE 7.5 (4.5-8.0); PROTEIN URINE NEGATIVE (NEGATIVE); SPECIFIC GRAVITY URINE 1.006 (1.005-1.030); UROBILINOGEN URINE 0.2 E.U./dL (0.2-1.0)
[2019-05-25 13:53] LABS: BASOPHILS % 0.5 % (0.0-2.0); EOSINOPHILS % 0.3 % (0.0-5.0); HEMATOCRIT. 38.8 % (36.0-48.0); HEMOGLOBIN. 12.9 g/dL (12.0-16.0); LYMPHOCYTES % 22.3 % (20.0-50.0); MEAN CORPUSCULAR HEMOGLOBIN 30.2 pg (28.0-32.0); MEAN CORPUSCULAR VOLUME 91.2 fL (81.0-99.0); MONOCYTES % 6.7 % (2.0-8.0); NEUTROPHILS % 70.2 % (40.0-76.0); RED BLOOD CELL COUNT 4.25 mill/uL (4.2-5.4); RED CELL DISTRIBUTION WIDTH 17.2 % (11.6-14.6)
[2019-05-25 13:59] LABS: PROTHROMBIN TIME 10.8 sec (9.6-11.0)
[2019-05-25 14:02] LABS: CHLORIDE 105 mEq/L (98-107)
[2019-05-25 14:28] LABS: MEAN PLATELET VOLUME 7.5 fl (7.4-10.4); PLATELET 335 x1000/uL (130-400)
[2019-05-25] MEDS ORDERED: PIPERACILLIN/TAZ 3.375G PREMIX 50 ML IV ONE (14:30)
[2019-05-25] MEDS ORDERED: SODIUM CHLORIDE 0.9% 1000ML BAG (SEPSIS BOLUS) IV ONE (14:30)
[2019-05-25] MEDS ORDERED: DIPHENHYDRAMINE 50MG/ML VIAL IV PRN (15:45)
[2019-05-25] MEDS ORDERED: ONDANSETRON HCL 4MG/2ML INJ IV PRN (15:45)
[2019-05-25] MEDS ORDERED: MAGNESIUM/ALUMINUM HYDROXIDE/SIMETHICONE 30ML UDC PO PRN (15:45)
[2019-05-25] MEDS ORDERED: GUAIFENESIN 200MG/10ML SUGAR FREE UDC PO PRN (15:45)
[2019-05-25] MEDS ORDERED: ACETAMINOPHEN 325MG TABLET PO PRN (15:45)
[2019-05-25] MEDS ORDERED: DOCUSATE SODIUM 100MG CAPSULE PO PRN (15:45)
[2019-05-25] MEDS ORDERED: CLONIDINE 0.1MG TABLET PO PRN (15:45)
[2019-05-25] MEDS ORDERED: HYDRALAZINE 20MG/ML VIAL IV PRN (15:45)
[2019-05-25] MEDS: MORPHINE SULFATE 2 MG/ML CPJ (NOT FOR IM USE) IV PRN ×2 (18:27→23:24)
[2019-05-25] MEDS ORDERED: IOHEXOL-350 100 ML BOTTLE ONE (18:42)
[2019-05-25] MEDS: HYDROCODONE/ACETAMINOPHEN 10/325MG TABLET PO PRN (21:08)
[2019-05-25] MEDS: ENOXAPARIN 40MG/0.4ML SYR SUBCUT SCH (23:00)
[2019-05-25 23:30] VITALS: BP 155/111
[2019-05-25] MEDS: AMLODIPINE 5MG TABLET PO SCH (23:30)
[2019-05-25] MEDS: SODIUM CHLORIDE 0.9% INJ 3ML FLUSH IVF SCH (23:58)
[2019-05-26] VITALS (11 sets, daily range): BP systolic 125–161; BP diastolic 75–123
[2019-05-26] MEDS ORDERED: SODIUM CHLORIDE 10% FOR INH 15ML VIAL NEB INH SCH
[2019-05-26] MEDS ORDERED: LEVOFLOXACIN 500MG PREMIX 100 ML IV SCH
[2019-05-26] MEDS: IPRATROPIUM BROMIDE (0.02%) 0.5MG/2.5ML NEB HHN SCH ×6 (00:03→20:34)
[2019-05-26] MEDS: LORAZEPAM 2MG/ML CPJ IV PRN ×3 (00:47→18:32)
[2019-05-26] MEDS: HYDROCODONE/ACETAMINOPHEN 10/325MG TABLET PO PRN (02:58)
[2019-05-26] MEDS: MORPHINE SULFATE 2 MG/ML CPJ (NOT FOR IM USE) IV PRN ×4 (05:10→20:33)
[2019-05-26 05:27] LABS: BASOPHILS % 0.1 % (0.0-2.0); HEMATOCRIT. 32.7 % (36.0-48.0); LYMPHOCYTES % 9.2 % (20.0-50.0); MEAN CORPUSCULAR HEMOGLOBIN 30.6 pg (28.0-32.0); MEAN CORPUSCULAR VOLUME 90.8 fL (81.0-99.0); MEAN PLATELET VOLUME 6.4 fl (7.4-10.4); MONOCYTES % 7.7 % (2.0-8.0); PLATELET 310 x1000/uL (130-400); RED CELL DISTRIBUTION WIDTH 16.6 % (11.6-14.6)
[2019-05-26 05:54] LABS: CHLORIDE 106 mEq/L (98-107)
[2019-05-26 06:06] LABS: CREATINE KINASE 161 IU/L (26-192)
[2019-05-26 06:09] LABS: CREATINE KINASE MB FRACTION 1.5 ng/mL (0.5-3.6)
[2019-05-26] MEDS: SODIUM CHLORIDE 0.9% INJ 3ML FLUSH IVF SCH ×3 (07:15→22:22)
[2019-05-26] MEDS: AMLODIPINE 5MG TABLET PO SCH (07:58)
[2019-05-26] MEDS: BUDESONIDE 0.5MG/2ML NEB HHN SCH ×2 (09:35→20:35)
[2019-05-26] MEDS ORDERED: INFLUENZA VIRUS VACCINE(AFLURIA) 0.5ML SYR IM ONE (12:00)
[2019-05-26] MEDS: ENOXAPARIN 40MG/0.4ML SYR SUBCUT SCH (15:56)
[2019-05-26] MEDS: METHYLPREDNISOLONE SOD SUCC 40 MG/ML VIAL IV SCH ×2 (18:16→22:22)
[2019-05-27] VITALS (13 sets, daily range): BP systolic 126–158; BP diastolic 62–103
[2019-05-27] MEDS: IPRATROPIUM BROMIDE (0.02%) 0.5MG/2.5ML NEB HHN SCH ×6 (00:51→20:36)
[2019-05-27] MEDS: LEVOFLOXACIN 500MG PREMIX 100 ML IV SCH (01:27)
[2019-05-27] MEDS: HYDROCODONE/ACETAMINOPHEN 10/325MG TABLET PO PRN ×4 (03:02→20:28)
[2019-05-27] MEDS: METHYLPREDNISOLONE SOD SUCC 40 MG/ML VIAL IV SCH ×3 (05:37→22:43)
[2019-05-27] MEDS: SODIUM CHLORIDE 0.9% INJ 3ML FLUSH IVF SCH ×3 (05:38→22:43)
[2019-05-27] MEDS: LORAZEPAM 2MG/ML CPJ IV PRN ×2 (05:54→22:55)
[2019-05-27] MEDS: BUDESONIDE 0.5MG/2ML NEB HHN SCH ×2 (09:01→20:35)
[2019-05-27] MEDS: MORPHINE SULFATE 2 MG/ML CPJ (NOT FOR IM USE) IV PRN ×2 (09:13→17:51)
[2019-05-27] MEDS: AMLODIPINE 10MG TABLET PO SCH (09:13)
[2019-05-27 09:42] LABS: HEMATOCRIT. 38.5 % (36.0-48.0); HEMOGLOBIN. 12.8 g/dL (12.0-16.0); MEAN CORPUSCULAR HEMOGLOBIN 30.4 pg (28.0-32.0); MEAN CORPUSCULAR VOLUME 91.3 fL (81.0-99.0); MEAN PLATELET VOLUME 6.8 fl (7.4-10.4); PLATELET 320 x1000/uL (130-400); RED BLOOD CELL COUNT 4.21 mill/uL (4.2-5.4); RED CELL DISTRIBUTION WIDTH 16.3 % (11.6-14.6)
[2019-05-27] MEDS ORDERED: HYDRALAZINE 20MG/ML VIAL IV PRN (09:45)
[2019-05-27 09:50] LABS: CHLORIDE 104 mEq/L (98-107)
[2019-05-27 11:02] LABS: *AMPHETAMINES SCREEN URINE NEGATIVE (NEGATIVE); *BARBITURATES SCREEN URINE NEGATIVE (NEGATIVE); *BENZODIAZEPINES SCREEN URINE NEGATIVE (NEGATIVE); *COCAINE SCREEN URINE NEGATIVE (NEGATIVE); METHADONE URINE SCREEN NEGATIVE (NEGATIVE); OPIATES URINE SCREEN PRESUMTIVE POSITIVE (NEGATIVE); PHENCYCLIDINE URINE SCREEN NEGATIVE (NEGATIVE)
[2019-05-27 11:03] LABS: CANNABINOID URINE SCREEN NEGATIVE (NEGATIVE)
[2019-05-27] MEDS: LIDOCAINE 5% PATCH TOP SCH (13:23)
[2019-05-27 14:09] LABS: PLATELET ESTIMATE NORMAL
[2019-05-27] MEDS ORDERED: PROMETHAZINE/DEXTROMETHORPHAN 6.25-15MG/5ML BOTTLE 120ML PO PRN (16:00)
[2019-05-27] MEDS: ENOXAPARIN 40MG/0.4ML SYR SUBCUT SCH (16:00)
[2019-05-27] MEDS ORDERED: SODIUM CHLORIDE 45ML SPRAY NS PRN (16:00)
[2019-05-27] MEDS: LORATADINE 10MG TABLET PO SCH (16:20)
[2019-05-27] MEDS: BENZONATATE 100MG CAPSULE PO PRN ×2 (16:20→22:48)
[2019-05-27] MEDS: GABAPENTIN 100MG CAPSULE PO SCH ×2 (16:20→22:43)
[2019-05-27] MEDS: FLUTICASONE PROPIONATE 50MCG/SPRAY BOTTLE BOTHNSTRLS SCH (20:15)
[2019-05-28] VITALS (10 sets, daily range): BP systolic 124–148; BP diastolic 77–100
[2019-05-28] MEDS: IPRATROPIUM BROMIDE (0.02%) 0.5MG/2.5ML NEB HHN SCH ×5 (00:09→16:30)
[2019-05-28] MEDS: LEVOFLOXACIN 500MG PREMIX 100 ML IV SCH (00:32)
[2019-05-28] MEDS: HYDROCODONE/ACETAMINOPHEN 10/325MG TABLET PO PRN ×3 (04:56→14:07)
[2019-05-28] MEDS: GABAPENTIN 100MG CAPSULE PO SCH ×2 (05:25→14:06)
[2019-05-28] MEDS: METHYLPREDNISOLONE SOD SUCC 40 MG/ML VIAL IV SCH ×2 (05:25→14:06)
[2019-05-28] MEDS: SODIUM CHLORIDE 0.9% INJ 3ML FLUSH IVF SCH ×2 (05:25→14:00)
[2019-05-28 07:01] LABS: BASOPHILS % 0.1 % (0.0-2.0); HEMATOCRIT. 36.2 % (36.0-48.0); LYMPHOCYTES % 7.6 % (20.0-50.0); MEAN CORPUSCULAR HEMOGLOBIN 30.1 pg (28.0-32.0); MEAN CORPUSCULAR VOLUME 90.3 fL (81.0-99.0); MEAN PLATELET VOLUME 6.8 fl (7.4-10.4); NEUTROPHILS % 89.3 % (40.0-76.0); PLATELET 325 x1000/uL (130-400); RED CELL DISTRIBUTION WIDTH 16.2 % (11.6-14.6)
[2019-05-28 07:26] LABS: CHLORIDE 103 mEq/L (98-107)
[2019-05-28] MEDS: AMLODIPINE 10MG TABLET PO SCH (08:09)
[2019-05-28] MEDS: FLUTICASONE PROPIONATE 50MCG/SPRAY BOTTLE BOTHNSTRLS SCH (08:09)
[2019-05-28] MEDS: LORATADINE 10MG TABLET PO SCH (08:09)
[2019-05-28] MEDS: LIDOCAINE 5% PATCH TOP SCH (08:09)
[2019-05-28] MEDS: BUDESONIDE 0.5MG/2ML NEB HHN SCH (10:15)
[2019-05-28] MEDS: BENZONATATE 100MG CAPSULE PO PRN (10:41)
[2019-05-28] MEDS ORDERED: HYDR-3280 MT (13:26)
[2019-05-28] MEDS: ENOXAPARIN 40MG/0.4ML SYR SUBCUT SCH (16:26)
[2019-05-29] MEDS ORDERED: LEVOFLOXACIN 500MG TABLET PO SCH (21:00)
== END 2019-05-28 18:10 | disposition home or self-care (01) | DRG 871 ==
LOC: ER 13:17 → EDBEDREQ 15:02 → EDBEDREQSVC 15:02 → EDBEDREQTM 15:02 → ENRESERV 20:59 → CANRESERV 20:59 → ENRESERV 21:43 → 3WST 22:53
PROVIDERS: ADMIT Internal Medicine; ATTEND Internal Medicine
PROC: 5A09357 Assistance with Respiratory Ventilation, Less than 24 Consecutive Hours, Continuous Positive Airway Pressure (ICD-10-PCS; principal; 2019-05-25)
PROC: 5A09357 Assistance with Respiratory Ventilation, Less than 24 Consecutive Hours, Continuous Positive Airway Pressure (ICD-10-PCS; 2019-05-26)
PROC: 5A09357 Assistance with Respiratory Ventilation, Less than 24 Consecutive Hours, Continuous Positive Airway Pressure (ICD-10-PCS; 2019-05-27)
DX: A41.9 Sepsis, unspecified organism (principal); J18.9 Pneumonia, unspecified organism; J96.20 Acute and chronic respiratory failure, unspecified whether with hypoxia or hypercapnia; E87.2 Acidosis; J44.1 Chronic obstructive pulmonary disease with (acute) exacerbation; E05.90 Thyrotoxicosis, unspecified without thyrotoxic crisis or storm; E83.42 Hypomagnesemia; E78.5 Hyperlipidemia, unspecified; J31.0 Chronic rhinitis; M54.6 Pain in thoracic spine; M54.40 Lumbago with sciatica, unspecified side; M54.10 Radiculopathy, site unspecified; G89.29 Other chronic pain; I10 Essential (primary) hypertension; E87.70 Fluid overload, unspecified; F41.9 Anxiety disorder, unspecified; M19.90 Unspecified osteoarthritis, unspecified site; I48.0 Paroxysmal atrial fibrillation; I27.20 Pulmonary hypertension, unspecified; Z87.01 Personal history of pneumonia (recurrent); Z87.891 Personal history of nicotine dependence; Z99.81 Dependence on supplemental oxygen; Z79.899 Other long term (current) drug therapy
CPT/HCPCS: 36415; 71045; 71275; 80048; 80053; 80061; 80305; 81003; 82550; 82553; 83036; 83605; 83735; 83880; 84145; 84484; 85025; 87070; 90686; 93005; 93306; 93971; 99291; J0360; J1200; J1650; J1956; J2060; J2270; J2405; J2543; J2920; J2930; J3475; J7030; J7131; J7626; Q9967

== ENCOUNTER 2020-08-10 11:17 | Inpatient (IN) | payer MEDICARE, MEDICAID ==
[~2020-08-10] VITALS: Ht 154.9 cm; Wt 58.1 kg
[~2020-08-10 11:17] MED LIST changes: +CHLO100T25 MT; +HYDR-4350 MT; +MONT10TA21 PO
[2020-08-10] MEDS ORDERED: METHYLPREDNISOLONE SOD SUCC 125 MG/2 ML VIAL IV STA (11:27)
[2020-08-10] MEDS ORDERED: IPRATROPIUM BROMIDE (0.02%) 0.5MG/2.5ML NEB HHN STA (11:27)
[2020-08-10] MEDS ORDERED: MAGNESIUM 2 G PREMIX 50 ML IV STA (11:27)
[2020-08-10] MEDS ORDERED: ALBUTEROL (0.083%) 2.5MG/3ML NEB HHN STA (11:27)
[2020-08-10 12:12] LABS: BASOPHILS % 0.5 % (0.0-2.0); EOSINOPHILS % 1.3 % (0.0-5.0); HEMATOCRIT. 36.8 % (36.0-48.0); HEMOGLOBIN. 12.1 g/dL (12.0-16.0); LYMPHOCYTES % 11.5 % (20.0-50.0); MEAN CORPUSCULAR VOLUME 97.8 fL (81.0-99.0); MEAN PLATELET VOLUME 7.3 fl (7.4-10.4); MONOCYTES % 5.4 % (2.0-8.0); NEUTROPHILS % 81.3 % (40.0-76.0); PLATELET 305 x1000/uL (130-400); RED BLOOD CELL COUNT 3.76 mill/uL (4.2-5.4); RED CELL DISTRIBUTION WIDTH 17.7 % (11.6-14.6)
[2020-08-10 12:16] LABS: BG CARBOXYHEMOGLOBIN 0.5 % (0.5-1.5); BG HCO3 ACT 29.4 mmol/L (22.0-26.0); BG METHEMOGLOBIN 0.2 % (0.0-1.5); BG OXYHEMOGLOBIN 98.3 % (94.0-97.0); BG PCO2 52.8 mmHg (35.0-45.0); BG PH 7.363 (7.350-7.450); BG PO2 171.8 mmHg (75.0-100.0); BG SAMPLE SITE LEFT BRACHIAL; BG TOTAL HEMOGLOBIN 12.6 g/dL (12.0-18.0); BG VENT MODE MASK
[2020-08-10 12:18] LABS: CHLORIDE 105 mEq/L (98-107)
[2020-08-10] MEDS: HYDROCODONE/ACETAMINOPHEN 10/325MG TABLET PO PRN (14:34)
[2020-08-10] MEDS: IPRATROPIUM/ALBUTEROL 0.5-3(2.5)MG/3ML NEB HHN SCH ×2 (16:22→20:43)
[2020-08-10] MEDS ORDERED: DEXTROSE 50% WATER 50ML SYRINGE IV PRN (20:45)
[2020-08-10] MEDS ORDERED: CLONIDINE 0.1MG TABLET PO PRN (20:45)
[2020-08-10] MEDS ORDERED: ACETAMINOPHEN 325MG TABLET PO PRN (20:45)
[2020-08-10] MEDS ORDERED: MAGNESIUM/ALUMINUM HYDROXIDE/SIMETHICONE 30ML UDC PO PRN (20:45)
[2020-08-10] MEDS ORDERED: DIPHENHYDRAMINE 50MG/ML VIAL IV PRN (20:45)
[2020-08-10] MEDS ORDERED: ZOLPIDEM TARTRATE 5MG TABLET PO PRN (20:45)
[2020-08-10] MEDS ORDERED: IPRATROPIUM/ALBUTEROL 0.5-3(2.5)MG/3ML NEB HHN PRN (20:45)
[2020-08-10] MEDS ORDERED: ONDANSETRON HCL 4MG/2ML INJ IV PRN (20:45)
[2020-08-10] MEDS ORDERED: HYDROCODONE/ACETAMINOPHEN 10/325MG TABLET PO PRN (20:45)
[2020-08-10] MEDS ORDERED: GUAIFENESIN 200MG/10ML SUGAR FREE UDC PO PRN (20:45)
[2020-08-10] MEDS ORDERED: ENOXAPARIN 40MG/0.4ML SYR SUBCUT SCH (20:45)
[2020-08-10] MEDS ORDERED: BLOOD SUGAR DIAGNOSTIC STRIP TEST SCH (21:00)
[2020-08-10] MEDS ORDERED: FLUTICASONE PROPIONATE 50MCG/SPRAY BOTTLE BOTHNSTRLS SCH (21:00)
[2020-08-10] MEDS ORDERED: INSULIN LISPRO 100 UNITS/ML SUBCUT SCH (21:00)
[2020-08-10] MEDS: METHYLPREDNISOLONE SOD SUCC 125 MG/2 ML VIAL IV SCH (21:29)
[2020-08-10] MEDS: PANTOPRAZOLE 40MG DR TABLET PO SCH (21:30)
[2020-08-10] MEDS: DULOXETINE HCL 30MG DR CAPSULE PO SCH (21:30)
[2020-08-10 21:40] LABS: T4 FREE 0.91 ng/dL (0.76-1.46)
[2020-08-10] MEDS: METOPROLOL TARTRATE 25MG TABLET PO SCH (21:57)
[2020-08-10] MEDS: ASCORBIC ACID 500 MG TABLET PO SCH (21:58)
[2020-08-10] MEDS: GUAIFENESIN 600MG ER TABLET PO SCH (22:00)
[2020-08-10] MEDS: ENOXAPARIN 30MG/0.3ML SYR SUBCUT SCH (22:00)
[2020-08-10] MEDS: ACETAMINOPHEN 325MG TABLET PO PRN (22:04)
[2020-08-10] MEDS: GABAPENTIN 100MG CAPSULE PO SCH (23:01)
[2020-08-10] MEDS: SODIUM CHLORIDE 0.9% INJ 3ML FLUSH IVF SCH (23:01)
[2020-08-10] MEDS: FLUTICASONE PROPIONATE 50MCG/SPRAY BOTTLE BOTHNSTRLS SCH (23:03)
[2020-08-11] VITALS (7 sets, daily range): BP systolic 121–156; BP diastolic 68–97
[2020-08-11] MEDS: IPRATROPIUM/ALBUTEROL 0.5-3(2.5)MG/3ML NEB HHN SCH ×6 (00:32→21:05)
[2020-08-11] MEDS ORDERED: DEXTROSE 50% WATER 50ML SYRINGE IV PRN (01:00)
[2020-08-11] MEDS ORDERED: LORAZEPAM 2MG/ML CPJ IV PRN (01:00)
[2020-08-11] MEDS: METHYLPREDNISOLONE SOD SUCC 125 MG/2 ML VIAL IV SCH ×3 (06:15→21:28)
[2020-08-11] MEDS: SODIUM CHLORIDE 0.9% INJ 3ML FLUSH IVF SCH ×3 (06:16→22:12)
[2020-08-11] MEDS: GABAPENTIN 100MG CAPSULE PO SCH ×3 (06:16→21:29)
[2020-08-11] MEDS: PANTOPRAZOLE 40MG DR TABLET PO SCH (06:19)
[2020-08-11] MEDS: BLOOD SUGAR DIAGNOSTIC STRIP TEST SCH ×4 (06:20→21:32)
[2020-08-11] MEDS: HYDROCODONE/ACETAMINOPHEN 10/325MG TABLET PO PRN ×2 (06:24→12:34)
[2020-08-11] MEDS: INSULIN LISPRO 100 UNITS/ML SUBCUT SCH ×4 (06:33→21:28)
[2020-08-11] MEDS: DOCUSATE SODIUM 100MG CAPSULE PO SCH ×2 (09:00→17:16)
[2020-08-11] MEDS: ENOXAPARIN 30MG/0.3ML SYR SUBCUT SCH (09:00)
[2020-08-11] MEDS: METHIMAZOLE 5MG TABLET PO SCH (09:34)
[2020-08-11] MEDS: CHOLECALCIFEROL (D3) 1000 UNIT TABLET PO SCH (09:34)
[2020-08-11] MEDS: MULTIVITAMINS,THER W-MINERALS TABLET PO SCH (09:35)
[2020-08-11] MEDS: GUAIFENESIN 600MG ER TABLET PO SCH ×2 (09:35→21:32)
[2020-08-11] MEDS: ASCORBIC ACID 500 MG TABLET PO SCH ×2 (09:36→21:28)
[2020-08-11] MEDS: METOPROLOL TARTRATE 25MG TABLET PO SCH ×2 (09:36→21:00)
[2020-08-11] MEDS: FLUTICASONE PROPIONATE 50MCG/SPRAY BOTTLE BOTHNSTRLS SCH ×2 (09:37→21:31)
[2020-08-11] MEDS: LIDOCAINE 5% PATCH TOP SCH (09:38)
[2020-08-11] MEDS: ACETAMINOPHEN 325MG TABLET PO PRN ×3 (09:39→22:11)
[2020-08-11] MEDS: ENOXAPARIN 40MG/0.4ML SYR SUBCUT SCH (16:00)
[2020-08-11] MEDS: FUROSEMIDE 40MG/4ML VIAL IVP SCH (17:16)
[2020-08-11] MEDS: ISOSORB DINIT/HYDRALAZINE HCL 20/37.5MG TABLET PO SCH (21:29)
[2020-08-11] MEDS: DULOXETINE HCL 30MG DR CAPSULE PO SCH (21:29)
[2020-08-11] MEDS: FAMOTIDINE 20MG TABLET PO SCH (21:29)
[2020-08-11] MEDS: CARVEDILOL 6.25 MG TABLET PO SCH (21:30)
[2020-08-12] VITALS (7 sets, daily range): BP systolic 98–125; BP diastolic 63–83
[2020-08-12] MEDS: IPRATROPIUM/ALBUTEROL 0.5-3(2.5)MG/3ML NEB HHN SCH ×7 (00:48→20:22)
[2020-08-12] MEDS: HYDROCODONE/ACETAMINOPHEN 10/325MG TABLET PO PRN ×3 (04:00→21:17)
[2020-08-12] MEDS: SODIUM CHLORIDE 0.9% INJ 3ML FLUSH IVF SCH ×3 (06:00→21:18)
[2020-08-12] MEDS: BLOOD SUGAR DIAGNOSTIC STRIP TEST SCH ×4 (07:10→21:18)
[2020-08-12] MEDS: INSULIN LISPRO 100 UNITS/ML SUBCUT SCH ×4 (07:40→21:36)
[2020-08-12 07:52] LABS: CHLORIDE 103 mEq/L (98-107)
[2020-08-12] MEDS: METHYLPREDNISOLONE SOD SUCC 125 MG/2 ML VIAL IV SCH ×3 (08:23→21:16)
[2020-08-12] MEDS: METHIMAZOLE 5MG TABLET PO SCH (08:24)
[2020-08-12] MEDS: GUAIFENESIN 600MG ER TABLET PO SCH ×2 (08:24→21:25)
[2020-08-12] MEDS: DOCUSATE SODIUM 100MG CAPSULE PO SCH ×2 (08:24→16:53)
[2020-08-12] MEDS: FAMOTIDINE 20MG TABLET PO SCH ×2 (08:24→20:56)
[2020-08-12] MEDS: ISOSORB DINIT/HYDRALAZINE HCL 20/37.5MG TABLET PO SCH ×3 (08:25→21:18)
[2020-08-12] MEDS: ASCORBIC ACID 500 MG TABLET PO SCH ×2 (08:25→21:25)
[2020-08-12] MEDS: MULTIVITAMINS,THER W-MINERALS TABLET PO SCH (08:26)
[2020-08-12] MEDS: CHOLECALCIFEROL (D3) 1000 UNIT TABLET PO SCH (08:26)
[2020-08-12] MEDS: GABAPENTIN 100MG CAPSULE PO SCH ×3 (08:27→21:16)
[2020-08-12] MEDS: FUROSEMIDE 40MG/4ML VIAL IVP SCH (08:27)
[2020-08-12] MEDS: CARVEDILOL 6.25 MG TABLET PO SCH ×2 (09:00→20:57)
[2020-08-12] MEDS: METOPROLOL TARTRATE 25MG TABLET PO SCH ×2 (09:00→20:56)
[2020-08-12] MEDS: FLUTICASONE PROPIONATE 50MCG/SPRAY BOTTLE BOTHNSTRLS SCH ×2 (10:13→21:17)
[2020-08-12] MEDS: LIDOCAINE 5% PATCH TOP SCH (10:14)
[2020-08-12] MEDS ORDERED: POTASSIUM CHLORIDE 20MEQ TABLET SR PO NR (12:30)
[2020-08-12] MEDS: ENOXAPARIN 40MG/0.4ML SYR SUBCUT SCH (16:00)
[2020-08-12] MEDS: ACETAMINOPHEN 325MG TABLET PO PRN (17:01)
[2020-08-12] MEDS: DULOXETINE HCL 30MG DR CAPSULE PO SCH (20:56)
[2020-08-12] MEDS: SIMETHICONE 80MG TABLET CHEW PO PRN (23:53)
[2020-08-13] VITALS: BP 134/85
[2020-08-13] MEDS: IPRATROPIUM/ALBUTEROL 0.5-3(2.5)MG/3ML NEB HHN SCH ×6 (00:29→21:22)
[2020-08-13] MEDS: LORAZEPAM 2MG/ML CPJ IV PRN ×2 (01:08→17:21)
[2020-08-13 04:00] VITALS: BP 130/70
[2020-08-13] MEDS: METHYLPREDNISOLONE SOD SUCC 125 MG/2 ML VIAL IV SCH ×2 (05:18→15:28)
[2020-08-13] MEDS: SODIUM CHLORIDE 0.9% INJ 3ML FLUSH IVF SCH ×3 (05:19→23:15)
[2020-08-13] MEDS: ISOSORB DINIT/HYDRALAZINE HCL 20/37.5MG TABLET PO SCH ×3 (05:19→22:10)
[2020-08-13] MEDS: GABAPENTIN 100MG CAPSULE PO SCH ×3 (05:19→22:10)
[2020-08-13] MEDS: FAMOTIDINE 20MG TABLET PO SCH ×2 (06:12→22:09)
[2020-08-13] MEDS: HYDROCODONE/ACETAMINOPHEN 10/325MG TABLET PO PRN ×2 (06:12→12:42)
[2020-08-13] MEDS: BLOOD SUGAR DIAGNOSTIC STRIP TEST SCH ×4 (06:13→21:00)
[2020-08-13] MEDS: INSULIN LISPRO 100 UNITS/ML SUBCUT SCH ×4 (06:39→23:14)
[2020-08-13 08:00] VITALS: BP_SYST 113; BP_SYST 116; BP_DIAS 67
[2020-08-13] MEDS: POTASSIUM CHLORIDE 20MEQ TABLET SR PO SCH (09:00)
[2020-08-13] MEDS: METOPROLOL TARTRATE 25MG TABLET PO SCH (09:00)
[2020-08-13] MEDS: FLUTICASONE PROPIONATE 50MCG/SPRAY BOTTLE BOTHNSTRLS SCH ×2 (09:08→22:07)
[2020-08-13] MEDS: FUROSEMIDE 40MG/4ML VIAL IVP SCH (09:09)
[2020-08-13] MEDS: CHOLECALCIFEROL (D3) 1000 UNIT TABLET PO SCH (09:09)
[2020-08-13] MEDS: METHIMAZOLE 5MG TABLET PO SCH (09:09)
[2020-08-13] MEDS: LIDOCAINE 5% PATCH TOP SCH (09:09)
[2020-08-13] MEDS: MULTIVITAMINS,THER W-MINERALS TABLET PO SCH (09:09)
[2020-08-13] MEDS: DOCUSATE SODIUM 100MG CAPSULE PO SCH ×2 (09:09→17:21)
[2020-08-13] MEDS: GUAIFENESIN 600MG ER TABLET PO SCH ×2 (09:09→22:09)
[2020-08-13] MEDS: PREDNISONE 20MG TABLET PO SCH (09:10)
[2020-08-13] MEDS: CARVEDILOL 6.25 MG TABLET PO SCH ×2 (09:11→22:08)
[2020-08-13] MEDS: ASCORBIC ACID 500 MG TABLET PO SCH ×2 (09:17→22:09)
[2020-08-13 12:00] VITALS: BP 116/67
[2020-08-13] MEDS: ENOXAPARIN 40MG/0.4ML SYR SUBCUT SCH ×2 (15:29→15:41)
[2020-08-13 16:00] VITALS: BP 120/61
[2020-08-13 20:00] VITALS: BP 130/79
[2020-08-13] MEDS: DULOXETINE HCL 30MG DR CAPSULE PO SCH (22:09)
[2020-08-14] VITALS: BP 120/76
[2020-08-14] MEDS: IPRATROPIUM/ALBUTEROL 0.5-3(2.5)MG/3ML NEB HHN SCH ×3 (00:48→08:59)
[2020-08-14] MEDS: HYDROCODONE/ACETAMINOPHEN 10/325MG TABLET PO PRN ×2 (01:17→07:53)
[2020-08-14 04:00] VITALS: BP 132/79
[2020-08-14] MEDS: BLOOD SUGAR DIAGNOSTIC STRIP TEST SCH (06:23)
[2020-08-14] MEDS: ISOSORB DINIT/HYDRALAZINE HCL 20/37.5MG TABLET PO SCH (06:57)
[2020-08-14] MEDS: SODIUM CHLORIDE 0.9% INJ 3ML FLUSH IVF SCH (06:57)
[2020-08-14] MEDS: FAMOTIDINE 20MG TABLET PO SCH (06:57)
[2020-08-14] MEDS: GABAPENTIN 100MG CAPSULE PO SCH (06:57)
[2020-08-14] MEDS: INSULIN LISPRO 100 UNITS/ML SUBCUT SCH (06:59)
[2020-08-14 08:00] VITALS: BP 138/87
[2020-08-14] MEDS: SIMETHICONE 80MG TABLET CHEW PO PRN (08:19)
[2020-08-14] MEDS: GUAIFENESIN 600MG ER TABLET PO SCH (08:19)
[2020-08-14] MEDS: MULTIVITAMINS,THER W-MINERALS TABLET PO SCH (08:19)
[2020-08-14] MEDS: POTASSIUM CHLORIDE 20MEQ TABLET SR PO SCH (08:19)
[2020-08-14] MEDS: ASCORBIC ACID 500 MG TABLET PO SCH (08:19)
[2020-08-14] MEDS: CARVEDILOL 6.25 MG TABLET PO SCH (08:20)
[2020-08-14] MEDS: CHOLECALCIFEROL (D3) 1000 UNIT TABLET PO SCH (08:20)
[2020-08-14] MEDS: METHIMAZOLE 5MG TABLET PO SCH (08:20)
[2020-08-14] MEDS: DOCUSATE SODIUM 100MG CAPSULE PO SCH (08:21)
[2020-08-14] MEDS: FUROSEMIDE 40MG/4ML VIAL IVP SCH (08:21)
[2020-08-14] MEDS: PREDNISONE 20MG TABLET PO SCH (08:21)
[2020-08-14] MEDS: LIDOCAINE 5% PATCH TOP SCH (08:35)
[2020-08-14 11:07] VITALS: BP 138/87
== END 2020-08-14 11:30 | DRG 205 ==
LOC: ER 11:17 → 8WST 13:07 → ENRESERV 17:29
PROVIDERS: ADMIT Internal Medicine; ATTEND Internal Medicine
PROC: 5A09357 Assistance with Respiratory Ventilation, Less than 24 Consecutive Hours, Continuous Positive Airway Pressure (ICD-10-PCS; principal; 2020-08-10)
DX: J68.0 Bronchitis and pneumonitis due to chemicals, gases, fumes and vapors (principal); J96.01 Acute respiratory failure with hypoxia; I50.23 Acute on chronic systolic (congestive) heart failure; E87.2 Acidosis; E44.1 Mild protein-calorie malnutrition; J98.11 Atelectasis; J32.9 Chronic sinusitis, unspecified; J31.0 Chronic rhinitis; E11.9 Type 2 diabetes mellitus without complications; E05.90 Thyrotoxicosis, unspecified without thyrotoxic crisis or storm; E03.9 Hypothyroidism, unspecified; D64.9 Anemia, unspecified; G89.29 Other chronic pain; I11.0 Hypertensive heart disease with heart failure; L89.159 Pressure ulcer of sacral region, unspecified stage; E87.6 Hypokalemia; M54.9 Dorsalgia, unspecified; F41.1 Generalized anxiety disorder; K21.9 Gastro-esophageal reflux disease without esophagitis; T65.891A Toxic effect of other specified substances, accidental (unintentional), initial encounter; Z87.891 Personal history of nicotine dependence; Z99.81 Dependence on supplemental oxygen; Y92.89 Other specified places as the place of occurrence of the external cause; Z79.899 Other long term (current) drug therapy
CPT/HCPCS: 36415; 36600; 71045; 80048; 80053; 82375; 82805; 82962; 83036; 83735; 83880; 84439; 84443; 84484; 85025; 93005; 94002; 94640; 94660; 99291; C1893; J1650; J1815; J1940; J2060; J2930; J3475; J7512; A4315

== ENCOUNTER 2021-02-05 15:20 | Inpatient (IN) | payer MEDICARE, MEDICAID ==
[~2021-02-05] VITALS: Ht 157.5 cm; Wt 63.5 kg
[2021-02-05] MEDS ORDERED: IPRATROPIUM BROMIDE (0.02%) 0.5MG/2.5ML NEB HHN STA (15:52)
[2021-02-05] MEDS ORDERED: METHYLPREDNISOLONE SOD SUCC 125 MG/2 ML VIAL IV STA (15:52)
[2021-02-05] MEDS ORDERED: ALBUTEROL (0.083%) 2.5MG/3ML NEB HHN STA (15:52)
[2021-02-05] MEDS ORDERED: MORPHINE SULFATE 4 MG/ML CPJ (NOT FOR IM USE) IV ONE (16:00)
[2021-02-05 16:34] LABS: BG BASE EXCESS 6.8 mmol/L (-2.0-2.0); BG CARBOXYHEMOGLOBIN 0.1 % (0.5-1.5); BG DEOXYHEMOGLOBIN 3.5 % (0.0-5.0); BG FRACTION INSPIRED OXYGEN 28; BG HCO3 ACT 31.9 mmol/L (22.0-26.0); BG METHEMOGLOBIN 0.1 % (0.0-1.5); BG OXYGEN SATURATION 96.5 % (92.0-98.5); BG OXYHEMOGLOBIN 96.3 % (94.0-97.0); BG PCO2 47.7 mmHg (35.0-45.0); BG PH 7.443 (7.350-7.450); BG PO2 85.3 mmHg (75.0-100.0); BG SAMPLE SITE RIGHT BRACHIAL; BG TOTAL HEMOGLOBIN 11.2 g/dL (12.0-18.0); BG VENT MODE NASAL CANNULA
[2021-02-05 17:37] LABS: BASOPHILS % 0.9 % (0.0-2.0); HEMATOCRIT. 33.1 % (36.0-48.0); HEMOGLOBIN. 10.5 g/dL (12.0-16.0); LYMPHOCYTES % 15.2 % (20.0-50.0); MEAN CORPUSCULAR HEMOGLOBIN 28.8 pg (28.0-32.0); MEAN CORPUSCULAR VOLUME 90.8 fL (81.0-99.0); MEAN PLATELET VOLUME 7.1 fl (7.4-10.4); NEUTROPHILS % 73.9 % (40.0-76.0); PLATELET 492 x1000/uL (130-400); RED BLOOD CELL COUNT 3.64 mill/uL (4.2-5.4); RED CELL DISTRIBUTION WIDTH 16.5 % (11.6-14.6)
[2021-02-05 17:41] LABS: CHLORIDE 101 mEq/L (98-107)
[2021-02-05] MEDS ORDERED: MAGNESIUM 2 G PREMIX 50 ML IV NR (18:04)
[2021-02-05] MEDS ORDERED: METHYLPREDNISOLONE SOD SUCC 125 MG/2 ML VIAL IV NR (18:04)
[2021-02-05] MEDS: ALBUTEROL (0.083%) 2.5MG/3ML NEB HHN NR ×2 (18:57→19:30)
[2021-02-05] MEDS: IPRATROPIUM BROMIDE (0.02%) 0.5MG/2.5ML NEB HHN NR ×2 (18:57→19:30)
[2021-02-05] MEDS ORDERED: IOHEXOL-350 100 ML BOTTLE ONE (20:16)
[2021-02-05] MEDS ORDERED: NALOXONE HCL 0.4MG/ML VIAL IV PRN (23:00)
[2021-02-06] VITALS (7 sets, daily range): BP systolic 107–142; BP diastolic 67–78
[2021-02-06] MEDS: METHYLPREDNISOLONE SOD SUCC 40 MG/ML VIAL IV SCH ×4 (00:13→22:33)
[2021-02-06] MEDS: ENOXAPARIN 40MG/0.4ML SYR SUBCUT SCH ×2 (00:13→21:15)
[2021-02-06] MEDS: HYDROCODONE/ACETAMINOPHEN 5/325MG TABLET PO PRN ×3 (00:13→21:15)
[2021-02-06] MEDS: IPRATROPIUM/ALBUTEROL 0.5-3(2.5)MG/3ML NEB NEB PRN ×2 (01:57→20:33)
[2021-02-06] MEDS ORDERED: PREG75CA PO (02:34)
[2021-02-06] MEDS ORDERED: PROG200C11 PO (02:34)
[2021-02-06] MEDS ORDERED: ISOS20TA8 PO (02:34)
[2021-02-06] MEDS ORDERED: GABA-529 PO (02:34)
[2021-02-06] MEDS ORDERED: COR6 PO (02:34)
[2021-02-06] MEDS ORDERED: PROT40 PO (02:34)
[2021-02-06] MEDS ORDERED: *PATIENT'S OWN MEDICATION STORAGE XX SCH (03:15)
[2021-02-06] MEDS: ACETAMINOPHEN 325MG TABLET PO PRN (04:15)
[2021-02-06 06:49] LABS: HEMATOCRIT. 29.5 % (36.0-48.0); HEMOGLOBIN. 9.8 g/dL (12.0-16.0); MEAN CORPUSCULAR HEMOGLOBIN 29.4 pg (28.0-32.0); MEAN CORPUSCULAR VOLUME 88.7 fL (81.0-99.0); MEAN PLATELET VOLUME 7.4 fl (7.4-10.4); PLATELET 551 x1000/uL (130-400); RED BLOOD CELL COUNT 3.32 mill/uL (4.2-5.4); RED CELL DISTRIBUTION WIDTH 15.7 % (11.6-14.6)
[2021-02-06 07:33] LABS: CHLORIDE 99 mEq/L (98-107)
[2021-02-06] MEDS ORDERED: INFLUENZA VACCINE 05/PF 0.5 ML SYRINGE IM ONE (09:00)
[2021-02-06] MEDS ORDERED: AZITHROMYCIN 500MG/250ML 250 ML IV ONE (10:00)
[2021-02-06] MEDS ORDERED: CEFTRIAXONE 1 G PREMIX 50 ML IV SCH (10:00)
[2021-02-06] MEDS ORDERED: CEFTRIAXONE 1,000 MG in DEXTROSE 5% WATER 50 ML IV SCH (11:30)
[2021-02-06] MEDS ORDERED: LIDOCAINE HCL 1% 20ML VIAL (Pyxis) INJ INFIL NR (12:00)
[2021-02-06] MEDS ORDERED: AZITHROMYCIN 500MG in DEXTROSE 5% WATER 250ML IV SCH (12:00)
[2021-02-06] MEDS ORDERED: LIDOCAINE HCL 2% JELLY 5ML TOP NR (12:00)
[2021-02-06 16:18] LABS: PLATELET ESTIMATE INCREASED
[2021-02-06] MEDS: HYDROCODONE/ACETAMINOPHEN 10/325MG TABLET PO PRN (17:09)
[2021-02-06] MEDS: ALPRAZOLAM 0.25 MG TABLET PO PRN (18:34)
[2021-02-06] MEDS ORDERED: CHLORPROMAZINE HCL 25 MG TABLET PO SCH (21:00)
[2021-02-06] MEDS ORDERED: CARVEDILOL 3.125 MG TABLET PO SCH (21:00)
[2021-02-06] MEDS: VANCOMYCIN 750 MG PREMIX 150 ML IV SCH (21:13)
[2021-02-06] MEDS: CARVEDILOL 6.25 MG TABLET PO SCH (21:13)
[2021-02-06] MEDS: FAMOTIDINE 20MG TABLET PO SCH (21:14)
[2021-02-06] MEDS: ISOSORBIDE DINITRATE 20MG TABLET PO SCH (21:14)
[2021-02-06] MEDS: DILTIAZEM HCL 120MG CAPSULE CD 24HR PO SCH (21:14)
[2021-02-06] MEDS: GUAIFENESIN 600MG ER TABLET PO SCH (21:15)
[2021-02-06] MEDS ORDERED: DEXTROSE 50% WATER 50ML SYRINGE IV PRN (21:30)
[2021-02-07] VITALS: BP 110/65
[2021-02-07] MEDS: HYDROCODONE/ACETAMINOPHEN 10/325MG TABLET PO PRN ×3 (03:08→22:40)
[2021-02-07 04:00] VITALS: BP 97/64
[2021-02-07] MEDS: BLOOD SUGAR DIAGNOSTIC STRIP TEST SCH ×4 (06:05→21:11)
[2021-02-07] MEDS: METHYLPREDNISOLONE SOD SUCC 40 MG/ML VIAL IV SCH ×3 (06:05→16:45)
[2021-02-07] MEDS: ALPRAZOLAM 0.25 MG TABLET PO PRN ×2 (06:25→22:48)
[2021-02-07 06:48] LABS: HEMOGLOBIN. 9.3 g/dL (12.0-16.0); MEAN CORPUSCULAR HEMOGLOBIN 28.8 pg (28.0-32.0); MEAN CORPUSCULAR VOLUME 89.3 fL (81.0-99.0); PLATELET 555 x1000/uL (130-400); RED BLOOD CELL COUNT 3.24 mill/uL (4.2-5.4); RED CELL DISTRIBUTION WIDTH 16.1 % (11.6-14.6)
[2021-02-07 07:08] LABS: CHLORIDE 101 mEq/L (98-107)
[2021-02-07 08:00] VITALS: BP 102/67
[2021-02-07] MEDS: VANCOMYCIN 750 MG PREMIX 150 ML IV SCH ×2 (08:00→09:16)
[2021-02-07] MEDS: ISOSORBIDE DINITRATE 20MG TABLET PO SCH ×3 (08:29→17:00)
[2021-02-07] MEDS: DILTIAZEM HCL 120MG CAPSULE CD 24HR PO SCH (08:30)
[2021-02-07] MEDS: CARVEDILOL 6.25 MG TABLET PO SCH ×3 (08:31→21:12)
[2021-02-07] MEDS: GABAPENTIN 100MG CAPSULE PO SCH ×2 (08:31→17:29)
[2021-02-07] MEDS: FAMOTIDINE 20MG TABLET PO SCH ×2 (08:31→21:12)
[2021-02-07] MEDS: GUAIFENESIN 600MG ER TABLET PO SCH ×2 (08:32→21:11)
[2021-02-07] MEDS: LORATADINE 10MG TABLET PO SCH (08:33)
[2021-02-07] MEDS: INSULIN LISPRO 100 UNITS/ML SUBCUT SCH ×4 (08:39→21:00)
[2021-02-07] MEDS ORDERED: PANTOPRAZOLE 40MG DR TABLET PO ONE (09:00)
[2021-02-07] MEDS: PREGABALIN 75MG CAPSULE PO SCH (09:16)
[2021-02-07 12:00] VITALS: BP 109/67
[2021-02-07 16:00] VITALS: BP 108/60
[2021-02-07 18:22] LABS: PLATELET ESTIMATE INCREASED
[2021-02-07 20:00] VITALS: BP 154/88
[2021-02-07] MEDS: IPRATROPIUM/ALBUTEROL 0.5-3(2.5)MG/3ML NEB NEB PRN (21:16)
[2021-02-07] MEDS: ENOXAPARIN 40MG/0.4ML SYR SUBCUT SCH (22:45)
[2021-02-08] VITALS: BP 108/64
[2021-02-08 04:00] VITALS: BP 115/72
[2021-02-08] MEDS: BLOOD SUGAR DIAGNOSTIC STRIP TEST SCH ×4 (06:46→20:43)
[2021-02-08] MEDS: INSULIN LISPRO 100 UNITS/ML SUBCUT SCH ×4 (07:50→21:00)
[2021-02-08 08:00] VITALS: BP 127/74
[2021-02-08 08:06] LABS: CHLORIDE 101 mEq/L (98-107)
[2021-02-08] MEDS: PREDNISONE 20MG TABLET PO SCH (09:29)
[2021-02-08] MEDS: GUAIFENESIN 600MG ER TABLET PO SCH ×2 (09:29→21:27)
[2021-02-08] MEDS: ISOSORBIDE DINITRATE 20MG TABLET PO SCH ×3 (09:29→18:35)
[2021-02-08] MEDS: LORATADINE 10MG TABLET PO SCH (09:29)
[2021-02-08] MEDS: FAMOTIDINE 20MG TABLET PO SCH ×2 (09:30→21:27)
[2021-02-08] MEDS: ALPRAZOLAM 0.25 MG TABLET PO PRN ×2 (09:30→22:09)
[2021-02-08] MEDS: PREGABALIN 75MG CAPSULE PO SCH (09:30)
[2021-02-08] MEDS: DILTIAZEM HCL 120MG CAPSULE CD 24HR PO SCH (09:30)
[2021-02-08] MEDS: GABAPENTIN 100MG CAPSULE PO SCH ×2 (09:30→18:35)
[2021-02-08] MEDS: CARVEDILOL 6.25 MG TABLET PO SCH ×2 (09:31→21:00)
[2021-02-08 12:00] VITALS: BP 117/65
[2021-02-08] MEDS: HYDROCODONE/ACETAMINOPHEN 10/325MG TABLET PO PRN ×2 (12:13→18:35)
[2021-02-08] MEDS: IPRATROPIUM/ALBUTEROL 0.5-3(2.5)MG/3ML NEB NEB PRN (13:16)
[2021-02-08 16:00] VITALS: BP 102/60
[2021-02-08] MEDS ORDERED: ALPR0.25 PO (18:34)
[2021-02-08] MEDS ORDERED: IPRA3AMP9 HHN (18:34)
[2021-02-08] MEDS ORDERED: GABA-529 PO (18:34)
[2021-02-08] MEDS ORDERED: P20 PO (18:34)
[2021-02-08] MEDS ORDERED: DILT120C88 PO (18:34)
[2021-02-08] MEDS ORDERED: FAMO20TA8 PO (18:34)
[2021-02-08] MEDS ORDERED: COR6 PO (18:34)
[2021-02-08] MEDS ORDERED: PREG75CA PO (18:34)
[2021-02-08] MEDS ORDERED: CLAR10 PO (18:34)
[2021-02-08] MEDS ORDERED: ISOS20TA8 PO (18:34)
[2021-02-08 20:00] VITALS: BP 98/61
[2021-02-08] MEDS: IPRATROPIUM/ALBUTEROL 0.5-3(2.5)MG/3ML NEB HHN SCH (21:25)
[2021-02-08] MEDS: THEOPHYLLINE ANHYDROUS 80 MG/15 ML 120ML PO SCH (21:27)
[2021-02-08] MEDS: ENOXAPARIN 40MG/0.4ML SYR SUBCUT SCH (22:02)
[2021-02-08] MEDS: ACETAMINOPHEN 325MG TABLET PO PRN (22:04)
[2021-02-09] VITALS: BP 108/60
[2021-02-09] MEDS: IPRATROPIUM/ALBUTEROL 0.5-3(2.5)MG/3ML NEB HHN SCH ×5 (00:45→15:18)
[2021-02-09] MEDS: HYDROCODONE/ACETAMINOPHEN 10/325MG TABLET PO PRN ×3 (00:51→13:19)
[2021-02-09 04:00] VITALS: BP 122/69
[2021-02-09] MEDS: THEOPHYLLINE ANHYDROUS 80 MG/15 ML 120ML PO SCH ×2 (06:08→15:23)
[2021-02-09] MEDS: BLOOD SUGAR DIAGNOSTIC STRIP TEST SCH ×3 (07:20→17:45)
[2021-02-09] MEDS: INSULIN LISPRO 100 UNITS/ML SUBCUT SCH ×3 (07:50→17:29)
[2021-02-09 08:00] VITALS: BP 121/68
[2021-02-09 08:47] LABS: HEMOGLOBIN. 10.1 g/dL (12.0-16.0); LYMPHOCYTES % 11.6 % (20.0-50.0); MEAN CORPUSCULAR HEMOGLOBIN 28.8 pg (28.0-32.0); MEAN CORPUSCULAR VOLUME 88.9 fL (81.0-99.0); MONOCYTES % 9.3 % (2.0-8.0); NEUTROPHILS % 79.1 % (40.0-76.0); PLATELET 591 x1000/uL (130-400); RED BLOOD CELL COUNT 3.49 mill/uL (4.2-5.4); RED CELL DISTRIBUTION WIDTH 16.1 % (11.6-14.6)
[2021-02-09] MEDS: PREDNISONE 20MG TABLET PO SCH (08:47)
[2021-02-09] MEDS: FAMOTIDINE 20MG TABLET PO SCH (08:47)
[2021-02-09] MEDS: CARVEDILOL 6.25 MG TABLET PO SCH (08:47)
[2021-02-09] MEDS: LORATADINE 10MG TABLET PO SCH (08:47)
[2021-02-09] MEDS: GUAIFENESIN 600MG ER TABLET PO SCH (08:48)
[2021-02-09] MEDS: PREGABALIN 75MG CAPSULE PO SCH (08:48)
[2021-02-09] MEDS: ISOSORBIDE DINITRATE 20MG TABLET PO SCH ×3 (08:48→17:45)
[2021-02-09 09:00] LABS: CHLORIDE 100 mEq/L (98-107)
[2021-02-09] MEDS: DILTIAZEM HCL 120MG CAPSULE CD 24HR PO SCH (09:11)
[2021-02-09] MEDS: GABAPENTIN 100MG CAPSULE PO SCH ×2 (09:43→17:45)
[2021-02-09 15:00] VITALS: BP 122/91
[2021-02-09 16:26] VITALS: BP 122/91
[2021-02-09] MEDS: ACETAMINOPHEN 325MG TABLET PO PRN (17:45)
== END 2021-02-09 18:15 | disposition home health service (06) | DRG 854 ==
LOC: ER 15:20 → 6WST 20:28 → EDBEDREQ 20:30 → EDBEDREQTM 20:30 → ENRESERV 21:38
PROVIDERS: ADMIT Family Medicine Adult Medicine; ATTEND Family Medicine Adult Medicine
PROC: 0KBW0ZZ Excision of Left Foot Muscle, Open Approach (ICD-10-PCS; principal; 2021-02-06)
PROC: 0HCNXZZ Extirpation of Matter from Left Foot Skin, External Approach (ICD-10-PCS; 2021-02-06)
DX: A41.9 Sepsis, unspecified organism (principal); E44.0 Moderate protein-calorie malnutrition; J96.10 Chronic respiratory failure, unspecified whether with hypoxia or hypercapnia; I50.22 Chronic systolic (congestive) heart failure; J44.1 Chronic obstructive pulmonary disease with (acute) exacerbation; L02.612 Cutaneous abscess of left foot; L02.611 Cutaneous abscess of right foot; M86.9 Osteomyelitis, unspecified; I87.8 Other specified disorders of veins; J31.0 Chronic rhinitis; D64.9 Anemia, unspecified; E05.90 Thyrotoxicosis, unspecified without thyrotoxic crisis or storm; F41.9 Anxiety disorder, unspecified; I11.0 Hypertensive heart disease with heart failure; J32.9 Chronic sinusitis, unspecified; R26.89 Other abnormalities of gait and mobility; E11.51 Type 2 diabetes mellitus with diabetic peripheral angiopathy without gangrene; E11.69 Type 2 diabetes mellitus with other specified complication; Y84.8 Other medical procedures as the cause of abnormal reaction of the patient, or of later complication, without mention of misadventure at the time of the procedure; Z87.891 Personal history of nicotine dependence; Z99.81 Dependence on supplemental oxygen; Z79.899 Other long term (current) drug therapy; Y92.89 Other specified places as the place of occurrence of the external cause
CPT/HCPCS: 36415; 36600; 71045; 71275; 80048; 80053; 80202; 82375; 82805; 82962; 83605; 83880; 84145; 84484; 85025; 87070; 87075; 87186; 87426; 87804; 90686; 93005; 93923; 94640; 99285; J0456; J0696; J1650; J1815; J2270; J2920; J2930; J3370; J3475; J3490; J7060; J7512; Q9967

== ENCOUNTER 2021-07-12 20:02 | Inpatient (IN) | payer MEDICARE, MEDICAID ==
[~2021-07-12] VITALS: Ht 157.5 cm; Wt 46.7 kg
[~2021-07-12 20:02] MED LIST changes: +ALPR0.25 PO; +COR6 PO; +GABA-529 PO; +IPRA3AMP9 HHN; +ISOS20TA8 PO; +PREG75CA PO; +PROG200C11 PO; +PROT40 PO
[2021-07-12] MEDS ORDERED: ALBUTEROL (0.083%) 2.5MG/3ML NEB HHN STA (20:49)
[2021-07-12] MEDS ORDERED: METHYLPREDNISOLONE SOD SUCC 125 MG/2 ML VIAL IV STA (20:49)
[2021-07-12] MEDS ORDERED: IPRATROPIUM BROMIDE (0.02%) 0.5MG/2.5ML NEB HHN STA (20:49)
[2021-07-12] MEDS ORDERED: LORAZEPAM 1MG TABLET PO ONE (21:30)
[2021-07-12] MEDS ORDERED: IPRATROPIUM/ALBUTEROL 0.5-3(2.5)MG/3ML NEB HHN PRN ×2 (21:45→23:30)
[2021-07-12 21:53] LABS: BASOPHILS % 0.6 % (0.0-2.0); EOSINOPHILS % 1.1 % (0.0-5.0); HEMATOCRIT. 31.6 % (36.0-48.0); HEMOGLOBIN. 10.3 g/dL (12.0-16.0); LYMPHOCYTES % 17.8 % (20.0-50.0); MEAN CORPUSCULAR HEMOGLOBIN 28.5 pg (28.0-32.0); MEAN CORPUSCULAR VOLUME 87.7 fL (81.0-99.0); MEAN PLATELET VOLUME 6.5 fl (7.4-10.4); MONOCYTES % 9.9 % (2.0-8.0); NEUTROPHILS % 70.6 % (40.0-76.0); PLATELET 438 x1000/uL (130-400); RED CELL DISTRIBUTION WIDTH 19.8 % (11.6-14.6)
[2021-07-12 22:07] LABS: CHLORIDE 102 mEq/L (98-107)
[2021-07-12] MEDS ORDERED: CEFTRIAXONE 1 G PREMIX 50 ML IV NR (23:00)
[2021-07-12] MEDS ORDERED: AZITHROMYCIN 500MG/250ML 250 ML IV NR (23:00)
[2021-07-12] MEDS ORDERED: AZITHROMYCIN 500 MG in DEXT 5% WATER 250 ML IV SCH (23:00)
[2021-07-12] MEDS ORDERED: ACETAMINOPHEN 325MG TABLET PO PRN (23:30)
[2021-07-12] MEDS ORDERED: DOCUSATE SODIUM 100MG CAPSULE PO PRN (23:30)
[2021-07-12] MEDS ORDERED: ONDANSETRON HCL 4MG/2ML INJ IV PRN (23:30)
[2021-07-12] MEDS ORDERED: ACETAMINOPHEN 650MG SUPP PR PRN ×2 (23:30)
[2021-07-12] MEDS ORDERED: CLONIDINE 0.1MG TABLET PO PRN (23:30)
[2021-07-13] VITALS (9 sets, daily range): BP systolic 115–139; BP diastolic 71–85
[2021-07-13 00:17] LABS: CLARITY URINE CLEAR (CLEAR); COLOR URINE YELLOW (YELLOW); KETONES URINE NEGATIVE (NEGATIVE); LEUKOCYTE ESTERASE URINE 2+ (NEGATIVE); NITRITE URINE NEGATIVE (NEGATIVE); OCCULT BLOOD URINE NEGATIVE (NEGATIVE); PH URINE 8.5 (4.5-8.0); PROTEIN URINE TRACE (NEGATIVE); SPECIFIC GRAVITY URINE 1.016 (1.005-1.030)
[2021-07-13] MEDS: ACETAMINOPHEN 325MG TABLET PO PRN ×3 (03:41→18:12)
[2021-07-13 03:55] LABS: HEMATOCRIT. 28.8 % (36.0-48.0); HEMOGLOBIN. 9.6 g/dL (12.0-16.0); MEAN CORPUSCULAR HEMOGLOBIN 28.8 pg (28.0-32.0); MEAN CORPUSCULAR VOLUME 86.1 fL (81.0-99.0); MEAN PLATELET VOLUME 6.3 fl (7.4-10.4); PLATELET 399 x1000/uL (130-400); RED BLOOD CELL COUNT 3.35 mill/uL (4.2-5.4); RED CELL DISTRIBUTION WIDTH 19.7 % (11.6-14.6)
[2021-07-13 04:06] LABS: CHLORIDE 102 mEq/L (98-107)
[2021-07-13 04:14] LABS: LDL CHOLESTEROL 98 mg/dL (5-100)
[2021-07-13 04:15] LABS: CREATINE KINASE 51 IU/L (26-192); HDL CHOLESTEROL 42 mg/dL (40-59); T4 FREE 1.02 ng/dL (0.76-1.46)
[2021-07-13] MEDS ORDERED: DEXTROSE 50% WATER 50ML SYRINGE IV PRN (04:15)
[2021-07-13] MEDS: LORAZEPAM 0.5MG TABLET PO PRN ×3 (06:09→18:11)
[2021-07-13] MEDS: METHYLPREDNISOLONE SOD SUCC 40 MG/ML VIAL IV SCH ×3 (06:22→21:23)
[2021-07-13] MEDS: BLOOD SUGAR DIAGNOSTIC STRIP TEST SCH ×4 (06:32→21:21)
[2021-07-13] MEDS: INSULIN LISPRO 100 UNITS/ML SUBCUT SCH ×4 (07:20→21:00)
[2021-07-13] MEDS: ENOXAPARIN 40MG/0.4ML SYR SUBCUT SCH (09:00)
[2021-07-13] MEDS: IPRATROPIUM/ALBUTEROL 0.5-3(2.5)MG/3ML NEB HHN SCH ×4 (09:10→20:00)
[2021-07-13 12:33] LABS: PLATELET ESTIMATE NORMAL
[2021-07-13] MEDS ORDERED: THROAT LOZENGES-BENZOCAINE/MENTH/CETYLPYRD CL LOZENGES MM PRN (14:30)
[2021-07-14] VITALS: BP 108/86
[2021-07-14] MEDS: ACETAMINOPHEN 325MG TABLET PO PRN (01:01)
[2021-07-14] MEDS ORDERED: NALOXONE HCL 0.4 MG/ML 1ML VIAL IV PRN (01:45)
[2021-07-14] MEDS: HYDROCODONE/ACETAMINOPHEN 5/325MG TABLET PO PRN ×4 (02:05→23:26)
[2021-07-14 04:29] VITALS: BP 143/92
[2021-07-14] MEDS: INSULIN LISPRO 100 UNITS/ML SUBCUT SCH ×4 (06:08→21:36)
[2021-07-14] MEDS: BLOOD SUGAR DIAGNOSTIC STRIP TEST SCH ×4 (06:09→21:46)
[2021-07-14] MEDS: METHYLPREDNISOLONE SOD SUCC 40 MG/ML VIAL IV SCH ×3 (06:09→21:32)
[2021-07-14 08:00] VITALS: BP 150/90
[2021-07-14] MEDS: ENOXAPARIN 40MG/0.4ML SYR SUBCUT SCH (08:16)
[2021-07-14] MEDS: IPRATROPIUM/ALBUTEROL 0.5-3(2.5)MG/3ML NEB HHN SCH ×5 (09:20→20:00)
[2021-07-14 12:56] VITALS: BP 145/77
[2021-07-14 16:00] VITALS: BP 136/79
[2021-07-14] MEDS: LORAZEPAM 0.5MG TABLET PO PRN (18:41)
[2021-07-14 20:00] VITALS: BP 150/86
[2021-07-14] MEDS: GUAIFENESIN 200MG/10ML SUGAR FREE UDC PO PRN (23:29)
[2021-07-15] VITALS: BP 144/82
[2021-07-15] MEDS: IPRATROPIUM/ALBUTEROL 0.5-3(2.5)MG/3ML NEB HHN SCH ×7 (00:49→23:45)
[2021-07-15 04:00] VITALS: BP 151/98
[2021-07-15] MEDS: GUAIFENESIN 200MG/10ML SUGAR FREE UDC PO PRN ×2 (04:51→21:14)
[2021-07-15] MEDS: HYDROCODONE/ACETAMINOPHEN 5/325MG TABLET PO PRN ×2 (05:00→17:14)
[2021-07-15] MEDS: BLOOD SUGAR DIAGNOSTIC STRIP TEST SCH ×4 (06:08→21:15)
[2021-07-15] MEDS: METHYLPREDNISOLONE SOD SUCC 40 MG/ML VIAL IV SCH ×3 (06:28→21:52)
[2021-07-15] MEDS: INSULIN LISPRO 100 UNITS/ML SUBCUT SCH ×4 (06:29→21:55)
[2021-07-15 08:00] VITALS: BP 146/93
[2021-07-15] MEDS: ENOXAPARIN 40MG/0.4ML SYR SUBCUT SCH (09:00)
[2021-07-15 12:00] VITALS: BP 149/89
[2021-07-15] MEDS: LORAZEPAM 0.5MG TABLET PO PRN ×2 (12:30→21:52)
[2021-07-15 16:00] VITALS: BP 147/94
[2021-07-15 20:33] VITALS: BP 128/78
[2021-07-16] VITALS: BP 126/77
[2021-07-16] MEDS: HYDROCODONE/ACETAMINOPHEN 5/325MG TABLET PO PRN ×4 (01:19→20:26)
[2021-07-16 04:00] VITALS: BP 147/85
[2021-07-16] MEDS: IPRATROPIUM/ALBUTEROL 0.5-3(2.5)MG/3ML NEB HHN SCH ×5 (04:41→20:53)
[2021-07-16] MEDS: METHYLPREDNISOLONE SOD SUCC 40 MG/ML VIAL IV SCH (05:38)
[2021-07-16] MEDS: INSULIN LISPRO 100 UNITS/ML SUBCUT SCH ×4 (05:38→21:00)
[2021-07-16] MEDS: BLOOD SUGAR DIAGNOSTIC STRIP TEST SCH ×4 (05:40→21:00)
[2021-07-16 07:49] VITALS: BP 141/80
[2021-07-16] MEDS: ENOXAPARIN 40MG/0.4ML SYR SUBCUT SCH (08:58)
[2021-07-16] MEDS: LORAZEPAM 0.5MG TABLET PO PRN ×2 (10:02→16:07)
[2021-07-16] MEDS ORDERED: LIDOCAINE HCL 2% JELLY 5ML TOP NR (12:15)
[2021-07-16 12:20] VITALS: BP 128/84
[2021-07-16 16:00] VITALS: BP_SYST 126; BP_SYST 130; BP_DIAS 74; BP_DIAS 78
[2021-07-16] MEDS: PREDNISONE 20MG TABLET PO SCH (17:42)
[2021-07-16 20:00] VITALS: BP 141/76
[2021-07-16] MEDS: MAGNESIUM/ALUMINUM HYDROXIDE/SIMETHICONE 30ML UDC PO PRN (21:18)
[2021-07-16] MEDS: GUAIFENESIN 600MG ER TABLET PO SCH (21:18)
[2021-07-17] VITALS (7 sets, daily range): BP systolic 118–170; BP diastolic 72–105
[2021-07-17] MEDS: HYDROCODONE/ACETAMINOPHEN 5/325MG TABLET PO PRN (03:37)
[2021-07-17] MEDS: LORAZEPAM 0.5MG TABLET PO PRN ×2 (03:42→17:20)
[2021-07-17] MEDS: IPRATROPIUM/ALBUTEROL 0.5-3(2.5)MG/3ML NEB HHN SCH ×5 (04:57→16:00)
[2021-07-17] MEDS ORDERED: GABAPENTIN 100MG CAPSULE PO SCH ×2 (06:00→21:00)
[2021-07-17] MEDS: INSULIN LISPRO 100 UNITS/ML SUBCUT SCH ×3 (06:17→17:22)
[2021-07-17] MEDS: BLOOD SUGAR DIAGNOSTIC STRIP TEST SCH ×3 (06:17→16:30)
[2021-07-17] MEDS ORDERED: METHOCARBAMOL 500MG TABLET PO PRN (07:00)
[2021-07-17 07:16] LABS: HEMATOCRIT. 33.4 % (36.0-48.0); HEMOGLOBIN. 10.9 g/dL (12.0-16.0); MEAN CORPUSCULAR HEMOGLOBIN 28.1 pg (28.0-32.0); MEAN CORPUSCULAR VOLUME 86.1 fL (81.0-99.0); MEAN PLATELET VOLUME 6.5 fl (7.4-10.4); PLATELET 426 x1000/uL (130-400); RED BLOOD CELL COUNT 3.87 mill/uL (4.2-5.4); RED CELL DISTRIBUTION WIDTH 19.4 % (11.6-14.6)
[2021-07-17 07:31] LABS: CHLORIDE 103 mEq/L (98-107)
[2021-07-17] MEDS: PREDNISONE 20MG TABLET PO SCH ×2 (08:57→17:20)
[2021-07-17] MEDS: GUAIFENESIN 600MG ER TABLET PO SCH (08:58)
[2021-07-17] MEDS ORDERED: ZINC SULFATE 220 MG ( 50 ) CAPSULE PO SCH (09:00)
[2021-07-17] MEDS ORDERED: ASCORBIC ACID 500 MG TABLET PO SCH (09:00)
[2021-07-17] MEDS: ENOXAPARIN 40MG/0.4ML SYR SUBCUT SCH (09:00)
[2021-07-17] MEDS ORDERED: LIDOCAINE 5% PATCH TOP SCH (09:00)
[2021-07-17] MEDS: HYDROCODONE/APAP 7.5/325MG 1 TAB TABLET PO PRN ×3 (09:51→20:45)
[2021-07-17] MEDS ORDERED: DILTIAZEM HCL 120MG CAPSULE CD 24HR PO SCH (10:45)
[2021-07-17 10:47] LABS: PLATELET ESTIMATE SLIGHTLY INCREASED
[2021-07-17] MEDS: ISOSORBIDE DINITRATE 20MG TABLET PO SCH ×2 (13:00→17:20)
[2021-07-17] MEDS: GUAIFENESIN 200MG/10ML SUGAR FREE UDC PO PRN (15:49)
[2021-07-17] MEDS: MAGNESIUM/ALUMINUM HYDROXIDE/SIMETHICONE 30ML UDC PO PRN (17:20)
== END 2021-07-17 21:05 | DRG 853 ==
LOC: ER 20:02 → MICUSO 23:56 → 3WST 07-13 02:15 → 7EST 07-13 17:25
PROVIDERS: ADMIT Specialist; ATTEND Specialist
PROC: 0JBR0ZZ Excision of Left Foot Subcutaneous Tissue and Fascia, Open Approach (ICD-10-PCS; principal; 2021-07-16)
DX: A41.9 Sepsis, unspecified organism (principal); L89.153 Pressure ulcer of sacral region, stage 3; J96.21 Acute and chronic respiratory failure with hypoxia; J44.1 Chronic obstructive pulmonary disease with (acute) exacerbation; E44.0 Moderate protein-calorie malnutrition; I50.22 Chronic systolic (congestive) heart failure; E87.2 Acidosis; M48.54XA Collapsed vertebra, not elsewhere classified, thoracic region, initial encounter for fracture; I42.9 Cardiomyopathy, unspecified; N39.0 Urinary tract infection, site not specified; L02.612 Cutaneous abscess of left foot; D64.9 Anemia, unspecified; E05.90 Thyrotoxicosis, unspecified without thyrotoxic crisis or storm; F41.9 Anxiety disorder, unspecified; G89.4 Chronic pain syndrome; I11.0 Hypertensive heart disease with heart failure; M47.26 Other spondylosis with radiculopathy, lumbar region; M48.061 Spinal stenosis, lumbar region without neurogenic claudication; M51.16 Intervertebral disc disorders with radiculopathy, lumbar region; J32.9 Chronic sinusitis, unspecified; G47.00 Insomnia, unspecified; M19.90 Unspecified osteoarthritis, unspecified site; E11.621 Type 2 diabetes mellitus with foot ulcer; L97.529 Non-pressure chronic ulcer of other part of left foot with unspecified severity; J31.0 Chronic rhinitis; E11.40 Type 2 diabetes mellitus with diabetic neuropathy, unspecified; R51.9 Headache, unspecified; I25.10 Atherosclerotic heart disease of native coronary artery without angina pectoris; E78.5 Hyperlipidemia, unspecified; M48.02 Spinal stenosis, cervical region; Z99.81 Dependence on supplemental oxygen; Z82.49 Family history of ischemic heart disease and other diseases of the circulatory system; Z87.891 Personal history of nicotine dependence; Z79.899 Other long term (current) drug therapy
CPT/HCPCS: 36415; 71045; 80048; 80053; 80061; 81003; 82040; 82550; 82962; 83036; 83605; 83735; 83880; 84134; 84145; 84439; 84443; 84484; 85025; 93005; 94640; 94644; 97162; 99285; J0456; J0696; J1650; J1815; J2920; J2930; J7060; J7512

== ENCOUNTER 2021-07-18 14:31 | Inpatient (IN) | payer MEDICARE, MEDICAID ==
[~2021-07-18] VITALS: Ht 157.5 cm; Wt 50.9 kg
[2021-07-18] MEDS ORDERED: IPRATROPIUM BROMIDE (0.02%) 0.5MG/2.5ML NEB HHN STA (16:24)
[2021-07-18] MEDS ORDERED: METHYLPREDNISOLONE SOD SUCC 125 MG/2 ML VIAL IV STA (16:24)
[2021-07-18] MEDS ORDERED: ALBUTEROL (0.083%) 2.5MG/3ML NEB HHN STA (16:24)
[2021-07-18] MEDS ORDERED: VANCOMYCIN 1G PREMIX 200 ML IV ONE (16:30)
[2021-07-18] MEDS ORDERED: SODIUM CHLORIDE 0.9% 1000ML BAG (SEPSIS BOLUS) IV ONE (16:30)
[2021-07-18] MEDS ORDERED: PIPERACILLIN/TAZ 3.375G PREMIX 50 ML IV ONE (16:30)
[2021-07-18 16:37] LABS: HEMATOCRIT. 33.7 % (36.0-48.0); MEAN CORPUSCULAR HEMOGLOBIN 28.5 pg (28.0-32.0); MEAN CORPUSCULAR VOLUME 87.2 fL (81.0-99.0); MEAN PLATELET VOLUME 6.6 fl (7.4-10.4); PLATELET 425 x1000/uL (130-400); RED BLOOD CELL COUNT 3.86 mill/uL (4.2-5.4); RED CELL DISTRIBUTION WIDTH 19.7 % (11.6-14.6)
[2021-07-18 16:43] LABS: CHLORIDE 104 mEq/L (98-107)
[2021-07-18 17:12] LABS: PLATELET ESTIMATE INCREASED
[2021-07-18] MEDS ORDERED: ONDANSETRON HCL 4MG/2ML INJ IV STA (17:43)
[2021-07-18] MEDS ORDERED: MORPHINE SULFATE 4 MG/ML CPJ (NOT FOR IM USE) IV STA (17:43)
[2021-07-18 17:55] LABS: BG BASE EXCESS 5.6 mmol/L (-2.0-2.0); BG CARBOXYHEMOGLOBIN 0.3 % (0.5-1.5); BG DEOXYHEMOGLOBIN 0.4 % (0.0-5.0); BG FRACTION INSPIRED OXYGEN 100; BG METHEMOGLOBIN 0.4 % (0.0-1.5); BG OXYGEN SATURATION 99.6 % (92.0-98.5); BG OXYHEMOGLOBIN 98.9 % (94.0-97.0); BG PCO2 49.5 mmHg (35.0-45.0); BG PH 7.415 (7.350-7.450); BG PO2 500.9 mmHg (75.0-100.0); BG TOTAL HEMOGLOBIN 10.7 g/dL (12.0-18.0); BG VENT MODE MASK - BIPAP
[2021-07-18] MEDS ORDERED: IPRATROPIUM/ALBUTEROL 0.5-3(2.5)MG/3ML NEB NEB PRN (18:15)
[2021-07-18] MEDS ORDERED: MAGNESIUM/ALUMINUM HYDROXIDE/SIMETHICONE 30ML UDC PO PRN (18:15)
[2021-07-18] MEDS ORDERED: ZOLPIDEM TARTRATE 5MG TABLET PO PRN (18:15)
[2021-07-18] MEDS ORDERED: ONDANSETRON HCL 4MG/2ML INJ IV PRN (18:15)
[2021-07-18] MEDS ORDERED: GUAIFENESIN 200MG/10ML SUGAR FREE UDC PO PRN (18:15)
[2021-07-18] MEDS ORDERED: NITROGLYCERIN 0.4MG TABLET SL SL PRN (18:15)
[2021-07-18] MEDS ORDERED: ACETAMINOPHEN 325MG TABLET PO PRN (18:15)
[2021-07-18] MEDS ORDERED: CLONIDINE 0.1MG TABLET PO PRN (18:15)
[2021-07-18] MEDS ORDERED: VANCOMYCIN 1GM PMX (XELLIA) 200 ML IV NR (18:30)
[2021-07-18 18:50] LABS: FOLIC ACID (FOLATE) SERUM 9.4 ng/mL (>5.38)
[2021-07-18] MEDS: ENOXAPARIN 40MG/0.4ML SYR SUBCUT SCH (20:00)
[2021-07-18 21:25] VITALS: BP 134/84
[2021-07-18 22:00] VITALS: BP 134/84
[2021-07-18] MEDS: KETOROLAC 15MG/ML VIAL IV PRN (22:36)
[2021-07-18] MEDS: ASCORBIC ACID 500 MG TABLET PO SCH (22:46)
[2021-07-18] MEDS: FAMOTIDINE 20MG TABLET PO SCH (22:47)
[2021-07-18] MEDS ORDERED: DEXTROSE 50% WATER 50ML SYRINGE IV PRN (23:00)
[2021-07-18] MEDS: METHYLPREDNISOLONE SOD SUCC 125 MG/2 ML VIAL IV SCH (23:27)
[2021-07-19] VITALS (12 sets, daily range): BP systolic 113–159; BP diastolic 55–96
[2021-07-19 00:52] LABS: CREATINE KINASE MB FRACTION 1.5 ng/mL (0.5-3.6)
[2021-07-19] MEDS: DILTIAZEM HCL 60MG TABLET PO SCH ×4 (01:00→18:00)
[2021-07-19] MEDS ORDERED: PIPERACILLIN/TAZ 3.375G PREMIX 50 ML IV SCH (01:00)
[2021-07-19] MEDS: ACETAMINOPHEN 325MG TABLET PO PRN ×2 (02:02→18:27)
[2021-07-19] MEDS: LORAZEPAM 0.5MG TABLET PO PRN ×3 (02:03→18:27)
[2021-07-19] MEDS ORDERED: VANCOMYCIN 750MG PMX (XELLIA) 150 ML IV SCH ×2 (04:00→18:00)
[2021-07-19] MEDS: KETOROLAC 15MG/ML VIAL IV PRN ×3 (05:20→20:56)
[2021-07-19] MEDS: METHYLPREDNISOLONE SOD SUCC 125 MG/2 ML VIAL IV SCH ×3 (05:25→21:00)
[2021-07-19] MEDS: BLOOD SUGAR DIAGNOSTIC STRIP TEST SCH ×4 (06:42→20:57)
[2021-07-19 07:08] LABS: HEMATOCRIT. 32.5 % (36.0-48.0); HEMOGLOBIN. 10.4 g/dL (12.0-16.0); MEAN CORPUSCULAR HEMOGLOBIN 27.8 pg (28.0-32.0); MEAN CORPUSCULAR VOLUME 86.6 fL (81.0-99.0); MEAN PLATELET VOLUME 6.3 fl (7.4-10.4); PLATELET 414 x1000/uL (130-400); RED BLOOD CELL COUNT 3.75 mill/uL (4.2-5.4); RED CELL DISTRIBUTION WIDTH 19.4 % (11.6-14.6)
[2021-07-19 07:28] LABS: CREATINE KINASE MB FRACTION 1.8 ng/mL (0.5-3.6)
[2021-07-19 07:39] LABS: CHLORIDE 103 mEq/L (98-107); PHOSPHORUS 2.1 mg/dL (2.5-4.9)
[2021-07-19] MEDS: ASCORBIC ACID 500 MG TABLET PO SCH ×2 (09:02→20:56)
[2021-07-19] MEDS: ZINC SULFATE 220 MG ( 50 ) CAPSULE PO SCH (09:02)
[2021-07-19] MEDS: FAMOTIDINE 20MG TABLET PO SCH ×2 (09:02→20:56)
[2021-07-19] MEDS: ASPIRIN 325MG EC TABLET PO SCH (09:02)
[2021-07-19] MEDS: INSULIN LISPRO 100 UNITS/ML SUBCUT SCH ×4 (09:03→20:57)
[2021-07-19] MEDS: PIPERACILLIN/TAZOBACTAM 3.375G in DEXT 5% WATER 50ML IV SCH ×3 (10:33→21:36)
[2021-07-19] MEDS: GUAIFENESIN 600MG ER TABLET PO SCH ×2 (13:49→20:56)
[2021-07-19] MEDS: DOCUSATE SODIUM 100MG CAPSULE PO PRN (13:49)
[2021-07-19] MEDS: IPRATROPIUM/ALBUTEROL 0.5-3(2.5)MG/3ML NEB HHN SCH (16:45)
[2021-07-19 18:02] LABS: PLATELET ESTIMATE INCREASED
[2021-07-19] MEDS: ENOXAPARIN 40MG/0.4ML SYR SUBCUT SCH ×2 (20:55→21:10)
[2021-07-20] VITALS (10 sets, daily range): BP systolic 133–166; BP diastolic 85–100
[2021-07-20] MEDS: IPRATROPIUM/ALBUTEROL 0.5-3(2.5)MG/3ML NEB HHN SCH ×4 (00:26→18:15)
[2021-07-20] MEDS: METHYLPREDNISOLONE SOD SUCC 125 MG/2 ML VIAL IV SCH ×3 (06:11→21:42)
[2021-07-20] MEDS: PIPERACILLIN/TAZOBACTAM 3.375G in DEXT 5% WATER 50ML IV SCH ×3 (06:11→21:43)
[2021-07-20] MEDS: DILTIAZEM HCL 60MG TABLET PO SCH ×4 (06:13→17:20)
[2021-07-20] MEDS: BLOOD SUGAR DIAGNOSTIC STRIP TEST SCH ×4 (07:02→21:34)
[2021-07-20] MEDS: INSULIN LISPRO 100 UNITS/ML SUBCUT SCH ×4 (07:20→21:00)
[2021-07-20] MEDS: ASCORBIC ACID 500 MG TABLET PO SCH ×2 (09:59→21:42)
[2021-07-20] MEDS: GUAIFENESIN 600MG ER TABLET PO SCH ×2 (09:59→21:43)
[2021-07-20] MEDS: ZINC SULFATE 220 MG ( 50 ) CAPSULE PO SCH (09:59)
[2021-07-20] MEDS: ASPIRIN 325MG EC TABLET PO SCH (09:59)
[2021-07-20] MEDS: FAMOTIDINE 20MG TABLET PO SCH ×2 (10:00→21:42)
[2021-07-20] MEDS: KETOROLAC 15MG/ML VIAL IV PRN (14:13)
[2021-07-20] MEDS: LORAZEPAM 0.5MG TABLET PO PRN (19:41)
[2021-07-21] VITALS (10 sets, daily range): BP systolic 119–163; BP diastolic 78–94
[2021-07-21] MEDS: DILTIAZEM HCL 60MG TABLET PO SCH ×4 (00:10→17:26)
[2021-07-21] MEDS: IPRATROPIUM/ALBUTEROL 0.5-3(2.5)MG/3ML NEB HHN SCH ×6 (00:46→21:52)
[2021-07-21] MEDS: PIPERACILLIN/TAZOBACTAM 3.375G in DEXT 5% WATER 50ML IV SCH ×3 (06:00→21:04)
[2021-07-21] MEDS: METHYLPREDNISOLONE SOD SUCC 125 MG/2 ML VIAL IV SCH ×3 (06:00→21:04)
[2021-07-21] MEDS: BLOOD SUGAR DIAGNOSTIC STRIP TEST SCH ×4 (07:28→21:05)
[2021-07-21] MEDS: INSULIN LISPRO 100 UNITS/ML SUBCUT SCH ×4 (07:49→21:00)
[2021-07-21] MEDS: GUAIFENESIN 600MG ER TABLET PO SCH ×2 (07:50→21:03)
[2021-07-21] MEDS: ASCORBIC ACID 500 MG TABLET PO SCH ×2 (07:50→21:03)
[2021-07-21] MEDS: ASPIRIN 325MG EC TABLET PO SCH (07:50)
[2021-07-21] MEDS: FAMOTIDINE 20MG TABLET PO SCH ×2 (07:50→21:03)
[2021-07-21] MEDS: ZINC SULFATE 220 MG ( 50 ) CAPSULE PO SCH (07:50)
[2021-07-21] MEDS: KETOROLAC 15MG/ML VIAL IV PRN ×2 (07:51→14:43)
[2021-07-21] MEDS: DOCUSATE SODIUM 100MG CAPSULE PO PRN (14:47)
[2021-07-21] MEDS: LORAZEPAM 0.5MG TABLET PO PRN (18:06)
[2021-07-21] MEDS: ENOXAPARIN 40MG/0.4ML SYR SUBCUT SCH ×2 (20:00→21:05)
[2021-07-22] VITALS (10 sets, daily range): BP systolic 122–158; BP diastolic 75–94
[2021-07-22] MEDS: ACETAMINOPHEN 325MG TABLET PO PRN ×3 (02:41→16:06)
[2021-07-22] MEDS: LORAZEPAM 0.5MG TABLET PO PRN ×2 (03:28→11:10)
[2021-07-22] MEDS: IPRATROPIUM/ALBUTEROL 0.5-3(2.5)MG/3ML NEB HHN SCH ×5 (05:10→20:13)
[2021-07-22] MEDS: METHYLPREDNISOLONE SOD SUCC 125 MG/2 ML VIAL IV SCH (06:28)
[2021-07-22] MEDS: DILTIAZEM HCL 60MG TABLET PO SCH ×4 (06:28→17:10)
[2021-07-22] MEDS: PIPERACILLIN/TAZOBACTAM 3.375G in DEXT 5% WATER 50ML IV SCH ×3 (06:29→22:34)
[2021-07-22] MEDS: BLOOD SUGAR DIAGNOSTIC STRIP TEST SCH ×4 (06:40→20:40)
[2021-07-22] MEDS: INSULIN LISPRO 100 UNITS/ML SUBCUT SCH ×4 (07:20→20:45)
[2021-07-22] MEDS: ASCORBIC ACID 500 MG TABLET PO SCH ×2 (09:41→20:27)
[2021-07-22] MEDS: GUAIFENESIN 600MG ER TABLET PO SCH ×2 (09:41→20:27)
[2021-07-22] MEDS: FAMOTIDINE 20MG TABLET PO SCH ×2 (09:41→20:27)
[2021-07-22] MEDS: METHYLPREDNISOLONE SOD SUCC 40 MG/ML VIAL IV SCH ×2 (09:41→20:26)
[2021-07-22] MEDS: ZINC SULFATE 220 MG ( 50 ) CAPSULE PO SCH (09:41)
[2021-07-22] MEDS: ASPIRIN 325MG EC TABLET PO SCH (09:41)
[2021-07-22] MEDS: TRAMADOL 50MG TABLET PO PRN ×2 (10:15→20:27)
[2021-07-22] MEDS: DOCUSATE SODIUM 100MG CAPSULE PO PRN (10:16)
[2021-07-22] MEDS ORDERED: NALOXONE HCL 0.4MG/ML VIAL IV PRN (15:00)
[2021-07-22] MEDS: ENOXAPARIN 40MG/0.4ML SYR SUBCUT SCH (19:53)
[2021-07-23] VITALS (9 sets, daily range): BP systolic 118–148; BP diastolic 72–88
[2021-07-23] MEDS: DILTIAZEM HCL 60MG TABLET PO SCH ×4 (00:42→18:32)
[2021-07-23] MEDS: IPRATROPIUM/ALBUTEROL 0.5-3(2.5)MG/3ML NEB HHN SCH ×6 (00:47→20:53)
[2021-07-23] MEDS: PIPERACILLIN/TAZOBACTAM 3.375G in DEXT 5% WATER 50ML IV SCH ×3 (06:47→22:34)
[2021-07-23] MEDS: BLOOD SUGAR DIAGNOSTIC STRIP TEST SCH ×4 (06:48→20:35)
[2021-07-23] MEDS: METHYLPREDNISOLONE SOD SUCC 40 MG/ML VIAL IV SCH (08:52)
[2021-07-23] MEDS: ASPIRIN 325MG EC TABLET PO SCH (08:52)
[2021-07-23] MEDS: ASCORBIC ACID 500 MG TABLET PO SCH ×2 (08:52→20:32)
[2021-07-23] MEDS: GUAIFENESIN 600MG ER TABLET PO SCH ×2 (08:52→20:32)
[2021-07-23] MEDS: INSULIN LISPRO 100 UNITS/ML SUBCUT SCH ×4 (08:52→20:35)
[2021-07-23] MEDS: FAMOTIDINE 20MG TABLET PO SCH ×2 (08:52→20:32)
[2021-07-23] MEDS: ZINC SULFATE 220 MG ( 50 ) CAPSULE PO SCH (08:52)
[2021-07-23] MEDS: LORAZEPAM 0.5MG TABLET PO PRN (09:25)
[2021-07-23] MEDS: TRAMADOL 50MG TABLET PO PRN ×2 (10:33→20:34)
[2021-07-23] MEDS ORDERED: PREDNISONE 20MG TABLET PO SCH (17:20)
[2021-07-23] MEDS: ENOXAPARIN 40MG/0.4ML SYR SUBCUT SCH (20:00)
[2021-07-24] VITALS: BP 136/83
== END 2021-07-24 01:15 | DRG 853 ==
LOC: ER 14:57 → 3WST 17:54 → EDBEDREQTM 18:03 → EDBEDREQ 18:03
PROVIDERS: ADMIT Internal Medicine; ATTEND Internal Medicine
PROC: 5A09357 Assistance with Respiratory Ventilation, Less than 24 Consecutive Hours, Continuous Positive Airway Pressure (ICD-10-PCS; 2021-07-18)
PROC: 0JB70ZZ Excision of Back Subcutaneous Tissue and Fascia, Open Approach (ICD-10-PCS; principal; 2021-07-23)
PROC: 0JBR0ZZ Excision of Left Foot Subcutaneous Tissue and Fascia, Open Approach (ICD-10-PCS; 2021-07-23)
DX: A41.9 Sepsis, unspecified organism (principal); L89.153 Pressure ulcer of sacral region, stage 3; J18.9 Pneumonia, unspecified organism; J96.22 Acute and chronic respiratory failure with hypercapnia; J96.21 Acute and chronic respiratory failure with hypoxia; E44.0 Moderate protein-calorie malnutrition; J44.0 Chronic obstructive pulmonary disease with (acute) lower respiratory infection; J44.1 Chronic obstructive pulmonary disease with (acute) exacerbation; I50.22 Chronic systolic (congestive) heart failure; M48.54XA Collapsed vertebra, not elsewhere classified, thoracic region, initial encounter for fracture; D63.8 Anemia in other chronic diseases classified elsewhere; E11.9 Type 2 diabetes mellitus without complications; D75.839 Thrombocytosis, unspecified; E05.90 Thyrotoxicosis, unspecified without thyrotoxic crisis or storm; E83.39 Other disorders of phosphorus metabolism; I11.0 Hypertensive heart disease with heart failure; J32.9 Chronic sinusitis, unspecified; J31.0 Chronic rhinitis; Z20.822 Contact with and (suspected) exposure to COVID-19; S90.922A Unspecified superficial injury of left foot, initial encounter; X58.XXXA Exposure to other specified factors, initial encounter; Y93.89 Activity, other specified; Y92.89 Other specified places as the place of occurrence of the external cause; Y99.8 Other external cause status; Z99.81 Dependence on supplemental oxygen; Z79.4 Long term (current) use of insulin; Z68.20 Body mass index [BMI] 20.0-20.9, adult; Z79.899 Other long term (current) drug therapy
CPT/HCPCS: 36415; 36600; 71045; 80053; 80061; 82040; 82375; 82550; 82553; 82607; 82746; 82805; 82962; 83036; 83540; 83550; 83605; 83735; 83880; 84100; 84134; 84145; 84443; 84484; 85025; 87426; 93005; 93970; 94640; 94644; 94660; 99291; J1650; J1815; J1885; J2270; J2405; J2543; J2920; J2930; J3370; J7030; J7060; J7512

== ENCOUNTER 2021-08-11 02:16 | Inpatient (IN) | payer MEDICARE, MEDICAID ==
[~2021-08-11] VITALS: Ht 157.5 cm; Wt 52.6 kg
[2021-08-11] MEDS ORDERED: CEFTRIAXONE 1 G PREMIX 50 ML IV ONE (03:00)
[2021-08-11 03:36] LABS: BASOPHILS % 0.5 % (0.0-2.0); EOSINOPHILS % 0.4 % (0.0-5.0); HEMATOCRIT. 25.8 % (36.0-48.0); HEMOGLOBIN. 8.5 g/dL (12.0-16.0); LYMPHOCYTES % 14.5 % (20.0-50.0); MEAN CORPUSCULAR HEMOGLOBIN 30.4 pg (28.0-32.0); MEAN CORPUSCULAR VOLUME 92.6 fL (81.0-99.0); MEAN PLATELET VOLUME 6.8 fl (7.4-10.4); MONOCYTES % 7.5 % (2.0-8.0); NEUTROPHILS % 77.1 % (40.0-76.0); PLATELET 445 x1000/uL (130-400); RED BLOOD CELL COUNT 2.79 mill/uL (4.2-5.4); RED CELL DISTRIBUTION WIDTH 22.7 % (11.6-14.6)
[2021-08-11 03:45] LABS: CHLORIDE 94 mEq/L (98-107)
[2021-08-11] MEDS ORDERED: SODIUM CHLORIDE 0.9% 2,000 ML IV STA (03:49)
[2021-08-11 04:16] LABS: CLARITY URINE CLOUDY (CLEAR); COLOR URINE YELLOW (YELLOW); KETONES URINE 1+ (NEGATIVE); LEUKOCYTE ESTERASE URINE 3+ (NEGATIVE); NITRITE URINE NEGATIVE (NEGATIVE); OCCULT BLOOD URINE NEGATIVE (NEGATIVE); PH URINE 5.5 (4.5-8.0); PROTEIN URINE 2+ (NEGATIVE); SPECIFIC GRAVITY URINE 1.022 (1.005-1.030)
[2021-08-11 05:39] LABS: PLATELET ESTIMATE INCREASED
[2021-08-11] MEDS ORDERED: HYDROCODONE/ACETAMINOPHEN 5/325MG TABLET PO ONE (06:45)
[2021-08-11] MEDS ORDERED: PIPERACILLIN/TAZ 3.375G PREMIX 50 ML IV NR (08:30)
[2021-08-11] MEDS ORDERED: PIPERACILLIN/TAZ 3.375G PREMIX 50 ML IV SCH (08:30)
[2021-08-11] MEDS ORDERED: POTASSIUM CHLORIDE 20MEQ TABLET SR PO NR (09:15)
[2021-08-11] MEDS: ASPIRIN 81MG TABLET PO SCH (09:26)
[2021-08-11 11:00] VITALS: BP 93/48
[2021-08-11 11:50] VITALS: BP 93/48
[2021-08-11] MEDS ORDERED: NALOXONE HCL 0.4MG/ML VIAL IV PRN (12:00)
[2021-08-11] MEDS: TRAMADOL 50MG TABLET PO PRN ×2 (12:06→18:58)
[2021-08-11 16:00] VITALS: BP 105/63
[2021-08-11] MEDS: ACETAMINOPHEN 325MG TABLET PO PRN (16:57)
[2021-08-11] MEDS: IPRATROPIUM/ALBUTEROL 0.5-3(2.5)MG/3ML NEB HHN SCH (19:51)
[2021-08-11 20:00] VITALS: BP 125/60
[2021-08-11] MEDS: PIPERACILLIN/TAZOBACTAM 3.375 G in DEXTROSE 5% WATER 50 ML IV SCH (20:15)
[2021-08-11] MEDS: GUAIFENESIN 600MG ER TABLET PO SCH (20:15)
[2021-08-11] MEDS ORDERED: GUAIFENESIN 600MG ER TABLET PO SCH (21:00)
[2021-08-11] MEDS ORDERED: PIPERACILLIN/TAZOBACTAM 3.375 G in DEXTROSE 5% WATER 50 ML IV SCH (22:00)
[2021-08-12] VITALS (7 sets, daily range): BP systolic 104–123; BP diastolic 50–70
[2021-08-12] MEDS: IPRATROPIUM/ALBUTEROL 0.5-3(2.5)MG/3ML NEB HHN SCH ×4 (02:00→20:24)
[2021-08-12] MEDS: TRAMADOL 50MG TABLET PO PRN ×2 (04:19→22:05)
[2021-08-12] MEDS: PIPERACILLIN/TAZOBACTAM 3.375 G in DEXTROSE 5% WATER 50 ML IV SCH ×3 (04:19→22:05)
[2021-08-12 08:09] LABS: HEMATOCRIT. 22.6 % (36.0-48.0); HEMOGLOBIN. 7.1 g/dL (12.0-16.0); MEAN CORPUSCULAR HEMOGLOBIN 29.5 pg (28.0-32.0); MEAN CORPUSCULAR VOLUME 94.3 fL (81.0-99.0); MEAN PLATELET VOLUME 6.7 fl (7.4-10.4); PLATELET 399 x1000/uL (130-400); RED CELL DISTRIBUTION WIDTH 21.8 % (11.6-14.6)
[2021-08-12] MEDS: ASPIRIN 81MG TABLET PO SCH (08:34)
[2021-08-12] MEDS: GUAIFENESIN 600MG ER TABLET PO SCH ×2 (08:35→20:18)
[2021-08-12 09:04] LABS: CHLORIDE 104 mEq/L (98-107)
[2021-08-12] MEDS: ACETAMINOPHEN 325MG TABLET PO PRN (09:07)
[2021-08-12] MEDS ORDERED: NITROGLYCERIN 0.4MG TABLET SL SL PRN (09:30)
[2021-08-12] MEDS: ZINC SULFATE 220 MG ( 50 ) CAPSULE PO SCH (09:38)
[2021-08-12] MEDS: HYDROCODONE/ACETAMINOPHEN 5/325MG TABLET PO PRN ×3 (09:38→17:19)
[2021-08-12 09:42] LABS: PLATELET ESTIMATE NORMAL
[2021-08-12] MEDS: ONDANSETRON HCL 4MG/2ML INJ IV PRN ×2 (10:15→18:49)
[2021-08-12] MEDS ORDERED: VANCOMYCIN 1500MG in DEXTROSE 5% WATER 250ML IV NR (11:00)
[2021-08-12] MEDS: GUAIFENESIN-DM 200MG-20MG/10ML UDC PO PRN ×2 (15:17→20:28)
[2021-08-12] MEDS: ALPRAZOLAM 0.25 MG TABLET PO PRN (15:18)
[2021-08-12 17:16] LABS: BG BASE EXCESS 11.3 mmol/L (-2.0-2.0); BG CARBOXYHEMOGLOBIN 0.8 % (0.5-1.5); BG DEOXYHEMOGLOBIN 13.2 % (0.0-5.0); BG FRACTION INSPIRED OXYGEN 32; BG HCO3 ACT 35.8 mmol/L (22.0-26.0); BG METHEMOGLOBIN 0.3 % (0.0-1.5); BG OXYGEN SATURATION 86.7 % (92.0-98.5); BG OXYHEMOGLOBIN 85.7 % (94.0-97.0); BG PO2 51.1 mmHg (75.0-100.0); BG SAMPLE SITE LEFT BRACHIAL; BG TOTAL HEMOGLOBIN 7.1 g/dL (12.0-18.0); BG VENT MODE NASAL CANNULA
[2021-08-12] MEDS: SPIRONOLACTONE 25MG TABLET PO SCH (17:18)
[2021-08-12] MEDS: VANCOMYCIN 750MG PMX (XELLIA) 150 ML IV SCH (20:18)
[2021-08-12] MEDS: CARVEDILOL 3.125 MG TABLET PO SCH (20:19)
[2021-08-12] MEDS: FAMOTIDINE 20MG TABLET PO SCH (20:19)
[2021-08-12] MEDS: ASCORBIC ACID 500 MG TABLET PO SCH (20:19)
[2021-08-12] MEDS: ZOLPIDEM TARTRATE 5MG TABLET PO PRN (22:02)
[2021-08-13] VITALS (13 sets, daily range): BP systolic 94–125; BP diastolic 48–84
[2021-08-13] MEDS: IPRATROPIUM/ALBUTEROL 0.5-3(2.5)MG/3ML NEB HHN SCH ×4 (01:40→20:30)
[2021-08-13] MEDS: PIPERACILLIN/TAZOBACTAM 3.375 G in DEXTROSE 5% WATER 50 ML IV SCH ×2 (05:46→14:42)
[2021-08-13] MEDS: SPIRONOLACTONE 25MG TABLET PO SCH ×2 (05:48→18:05)
[2021-08-13] MEDS: HYDROCODONE/ACETAMINOPHEN 5/325MG TABLET PO PRN ×2 (06:57→14:43)
[2021-08-13 08:38] LABS: HEMATOCRIT. 21.1 % (36.0-48.0); MEAN CORPUSCULAR HEMOGLOBIN 29.4 pg (28.0-32.0); MEAN CORPUSCULAR VOLUME 92.9 fL (81.0-99.0); MEAN PLATELET VOLUME 6.6 fl (7.4-10.4); PLATELET 445 x1000/uL (130-400); RED BLOOD CELL COUNT 2.27 mill/uL (4.2-5.4); RED CELL DISTRIBUTION WIDTH 21.4 % (11.6-14.6)
[2021-08-13 08:47] LABS: HEMOGLOBIN. 6.7 g/dL (12.0-16.0)
[2021-08-13] MEDS: CARVEDILOL 3.125 MG TABLET PO SCH ×2 (09:00→21:09)
[2021-08-13 09:16] LABS: CHLORIDE 104 mEq/L (98-107)
[2021-08-13] MEDS: ASCORBIC ACID 500 MG TABLET PO SCH ×2 (09:25→21:08)
[2021-08-13] MEDS: METHYLPREDNISOLONE SOD SUCC 40 MG/ML VIAL IV SCH (09:25)
[2021-08-13] MEDS: ONDANSETRON HCL 4MG/2ML INJ IV PRN (09:25)
[2021-08-13] MEDS: ASPIRIN 81MG TABLET PO SCH (09:25)
[2021-08-13] MEDS: ZINC SULFATE 220 MG ( 50 ) CAPSULE PO SCH (09:26)
[2021-08-13] MEDS: FAMOTIDINE 20MG TABLET PO SCH ×2 (09:26→21:09)
[2021-08-13] MEDS: ALPRAZOLAM 0.25 MG TABLET PO PRN (09:26)
[2021-08-13] MEDS: GUAIFENESIN 600MG ER TABLET PO SCH ×2 (09:26→21:08)
[2021-08-13 09:28] LABS: PHOSPHORUS 2.6 mg/dL (2.5-4.9)
[2021-08-13] MEDS: VANCOMYCIN 750MG PMX (XELLIA) 150 ML IV SCH (10:14)
[2021-08-13 13:01] LABS: PLATELET ESTIMATE INCREASED
[2021-08-13] MEDS ORDERED: LORAZEPAM 0.5MG TABLET PO NR (16:30)
[2021-08-13] MEDS: FLUCONAZOLE 100MG TABLET PO SCH (18:05)
[2021-08-13] MEDS: MEROPENEM 1,000 MG in SODIUM CHLORIDE 0.9% 100 ML IV SCH ×2 (18:53→23:01)
[2021-08-13] MEDS: TRAMADOL 50MG TABLET PO PRN (19:56)
[2021-08-14] VITALS (12 sets, daily range): BP systolic 108–163; BP diastolic 60–138
[2021-08-14] MEDS: IPRATROPIUM/ALBUTEROL 0.5-3(2.5)MG/3ML NEB HHN SCH ×3 (00:37→14:53)
[2021-08-14] MEDS: GUAIFENESIN-DM 200MG-20MG/10ML UDC PO PRN ×2 (00:46→15:02)
[2021-08-14] MEDS: SPIRONOLACTONE 25MG TABLET PO SCH ×2 (05:30→17:30)
[2021-08-14] MEDS: MEROPENEM 1,000 MG in SODIUM CHLORIDE 0.9% 100 ML IV SCH ×3 (05:30→21:02)
[2021-08-14] MEDS: HYDROCODONE/ACETAMINOPHEN 5/325MG TABLET PO PRN ×2 (05:31→15:03)
[2021-08-14 06:34] LABS: CHLORIDE 109 mEq/L (98-107)
[2021-08-14 06:47] LABS: BASOPHILS % 0.2 % (0.0-2.0); HEMATOCRIT. 25.9 % (36.0-48.0); HEMOGLOBIN. 8.4 g/dL (12.0-16.0); MEAN CORPUSCULAR HEMOGLOBIN 28.5 pg (28.0-32.0); MEAN CORPUSCULAR VOLUME 87.5 fL (81.0-99.0); MEAN PLATELET VOLUME 6.7 fl (7.4-10.4); MONOCYTES % 10.4 % (2.0-8.0); NEUTROPHILS % 74.4 % (40.0-76.0); PLATELET 443 x1000/uL (130-400); RED BLOOD CELL COUNT 2.96 mill/uL (4.2-5.4); RED CELL DISTRIBUTION WIDTH 24.4 % (11.6-14.6)
[2021-08-14] MEDS: FLUCONAZOLE 100MG TABLET PO SCH (09:06)
[2021-08-14] MEDS: ASPIRIN 81MG TABLET PO SCH (09:06)
[2021-08-14] MEDS: ZINC SULFATE 220 MG ( 50 ) CAPSULE PO SCH (09:06)
[2021-08-14] MEDS: METHYLPREDNISOLONE SOD SUCC 40 MG/ML VIAL IV SCH (09:06)
[2021-08-14] MEDS: ASCORBIC ACID 500 MG TABLET PO SCH ×2 (09:06→20:36)
[2021-08-14] MEDS: FAMOTIDINE 20MG TABLET PO SCH ×2 (09:06→20:36)
[2021-08-14] MEDS: GUAIFENESIN 600MG ER TABLET PO SCH ×2 (09:07→20:36)
[2021-08-14] MEDS: CARVEDILOL 3.125 MG TABLET PO SCH ×2 (09:07→20:37)
[2021-08-14] MEDS: ALPRAZOLAM 0.25 MG TABLET PO PRN (10:43)
[2021-08-14] MEDS ORDERED: MORPHINE SULFATE 2 MG/ML CPJ (NOT FOR IM USE) IV NR (15:15)
[2021-08-14] MEDS: TRAMADOL 50MG TABLET PO PRN (20:36)
[2021-08-15] VITALS (12 sets, daily range): BP systolic 132–154; BP diastolic 70–104
[2021-08-15] MEDS: IPRATROPIUM/ALBUTEROL 0.5-3(2.5)MG/3ML NEB HHN SCH ×5 (00:18→21:05)
[2021-08-15] MEDS: ALPRAZOLAM 0.25 MG TABLET PO PRN ×2 (00:57→11:58)
[2021-08-15] MEDS: SPIRONOLACTONE 25MG TABLET PO SCH ×2 (05:25→17:34)
[2021-08-15] MEDS: MEROPENEM 1,000 MG in SODIUM CHLORIDE 0.9% 100 ML IV SCH ×3 (05:25→21:31)
[2021-08-15] MEDS: HYDROCODONE/ACETAMINOPHEN 5/325MG TABLET PO PRN ×3 (05:26→18:51)
[2021-08-15] MEDS: METHYLPREDNISOLONE SOD SUCC 40 MG/ML VIAL IV SCH (08:23)
[2021-08-15] MEDS: ZINC SULFATE 220 MG ( 50 ) CAPSULE PO SCH (08:24)
[2021-08-15] MEDS: GUAIFENESIN 600MG ER TABLET PO SCH (08:24)
[2021-08-15] MEDS: CARVEDILOL 3.125 MG TABLET PO SCH ×2 (08:24→21:26)
[2021-08-15] MEDS: FLUCONAZOLE 100MG TABLET PO SCH (08:24)
[2021-08-15] MEDS: FAMOTIDINE 20MG TABLET PO SCH ×2 (08:24→21:25)
[2021-08-15] MEDS: ASCORBIC ACID 500 MG TABLET PO SCH ×2 (08:25→21:25)
[2021-08-15] MEDS: ASPIRIN 81MG TABLET PO SCH (08:25)
[2021-08-15] MEDS: GUAIFENESIN 200MG/10ML SUGAR FREE UDC PO SCH ×2 (15:13→21:24)
[2021-08-15] MEDS: ZOLPIDEM TARTRATE 5MG TABLET PO PRN (21:24)
[2021-08-15] MEDS: TRAMADOL 50MG TABLET PO PRN (21:25)
[2021-08-16] VITALS (13 sets, daily range): BP systolic 127–160; BP diastolic 67–108
[2021-08-16] MEDS: IPRATROPIUM/ALBUTEROL 0.5-3(2.5)MG/3ML NEB HHN SCH ×4 (01:12→20:08)
[2021-08-16] MEDS: GUAIFENESIN 200MG/10ML SUGAR FREE UDC PO SCH ×4 (03:00→20:41)
[2021-08-16] MEDS: MEROPENEM 1,000 MG in SODIUM CHLORIDE 0.9% 100 ML IV SCH ×3 (05:16→21:30)
[2021-08-16] MEDS: SPIRONOLACTONE 25MG TABLET PO SCH ×2 (05:17→17:45)
[2021-08-16] MEDS: ASCORBIC ACID 500 MG TABLET PO SCH ×2 (09:13→20:42)
[2021-08-16] MEDS: FAMOTIDINE 20MG TABLET PO SCH ×2 (09:14→20:41)
[2021-08-16] MEDS: FLUCONAZOLE 100MG TABLET PO SCH (09:15)
[2021-08-16] MEDS: CARVEDILOL 3.125 MG TABLET PO SCH ×2 (09:15→20:42)
[2021-08-16] MEDS: ZINC SULFATE 220 MG ( 50 ) CAPSULE PO SCH (09:15)
[2021-08-16] MEDS: ASPIRIN 81MG TABLET PO SCH (09:19)
[2021-08-16] MEDS: METHYLPREDNISOLONE SOD SUCC 40 MG/ML VIAL IV SCH (09:19)
[2021-08-16] MEDS: TRAMADOL 50MG TABLET PO PRN (09:26)
[2021-08-16] MEDS: ALPRAZOLAM 0.25 MG TABLET PO PRN ×2 (13:34→20:41)
[2021-08-16] MEDS: HYDROCODONE/ACETAMINOPHEN 5/325MG TABLET PO PRN (13:35)
[2021-08-16] MEDS ORDERED: SODIUM CHLORIDE 45ML SPRAY NS PRN (16:00)
[2021-08-16] MEDS ORDERED: TRAMADOL 50MG TABLET PO PRN (20:15)
[2021-08-16] MEDS: ZOLPIDEM TARTRATE 5MG TABLET PO PRN (22:55)
[2021-08-17] VITALS: BP 139/90
== END 2021-08-17 04:47 | DRG 871 ==
LOC: ER 02:16 → EDBEDREQTM 07:57 → EDBEDREQ 07:57 → ENRESERV 09:27 → EDBEDREQ 10:53 → 8WST 11:15 → 5EST 08-12 11:07
PROVIDERS: ADMIT Internal Medicine; ATTEND Internal Medicine
PROC: 30233N1 Transfusion of Nonautologous Red Blood Cells into Peripheral Vein, Percutaneous Approach (ICD-10-PCS; principal; 2021-08-13)
DX: A41.9 Sepsis, unspecified organism (principal); J96.20 Acute and chronic respiratory failure, unspecified whether with hypoxia or hypercapnia; J18.9 Pneumonia, unspecified organism; E43 Unspecified severe protein-calorie malnutrition; J44.0 Chronic obstructive pulmonary disease with (acute) lower respiratory infection; N39.0 Urinary tract infection, site not specified; I50.22 Chronic systolic (congestive) heart failure; J44.1 Chronic obstructive pulmonary disease with (acute) exacerbation; G45.9 Transient cerebral ischemic attack, unspecified; M48.54XA Collapsed vertebra, not elsewhere classified, thoracic region, initial encounter for fracture; E87.6 Hypokalemia; E87.8 Other disorders of electrolyte and fluid balance, not elsewhere classified; D63.8 Anemia in other chronic diseases classified elsewhere; E03.9 Hypothyroidism, unspecified; Z20.822 Contact with and (suspected) exposure to COVID-19; E05.90 Thyrotoxicosis, unspecified without thyrotoxic crisis or storm; I11.0 Hypertensive heart disease with heart failure; L89.156 Pressure-induced deep tissue damage of sacral region; E11.9 Type 2 diabetes mellitus without complications; J31.0 Chronic rhinitis; J32.9 Chronic sinusitis, unspecified; M81.0 Age-related osteoporosis without current pathological fracture; B96.20 Unspecified Escherichia coli [E. coli] as the cause of diseases classified elsewhere; Z79.4 Long term (current) use of insulin; Z86.73 Personal history of transient ischemic attack (TIA), and cerebral infarction without residual deficits; Z99.81 Dependence on supplemental oxygen; Z68.21 Body mass index [BMI] 21.0-21.9, adult
CPT/HCPCS: 36415; 36600; 71045; 80048; 80053; 80076; 80202; 81003; 82040; 82375; 82805; 83605; 83735; 84100; 84134; 84145; 84484; 85025; 86850; 86900; 86920; 87077; 87186; 87426; 93005; 94640; 99291; J0696; J2185; J2270; J2405; J2543; J2920; J3370; J7030; J7050; J7060; P9016

== ENCOUNTER 2021-09-13 17:46 | Inpatient (IN) | payer MEDICARE, MEDICAID ==
[~2021-09-13] VITALS: Ht 162.6 cm; Wt 75.7 kg
[~2021-09-13 17:46] MED LIST changes: +METH-371 PO; -TAP5 PO
[2021-09-13] MEDS ORDERED: SODIUM CHLORIDE 0.9% 1000ML BAG (SEPSIS BOLUS) IV ONE (18:45)
[2021-09-13] MEDS ORDERED: VANCOMYCIN 1G PREMIX 200 ML IV ONE (18:45)
[2021-09-13 19:10] LABS: CHLORIDE 104 mEq/L (98-107)
[2021-09-13 19:22] LABS: BASOPHILS % 0.4 % (0.0-2.0); EOSINOPHILS % 2.6 % (0.0-5.0); HEMOGLOBIN. 8.3 g/dL (12.0-16.0); LYMPHOCYTES % 18.3 % (20.0-50.0); MEAN CORPUSCULAR HEMOGLOBIN 30.6 pg (28.0-32.0); MEAN CORPUSCULAR VOLUME 96.1 fL (81.0-99.0); MEAN PLATELET VOLUME 6.4 fl (7.4-10.4); MONOCYTES % 7.1 % (2.0-8.0); NEUTROPHILS % 71.6 % (40.0-76.0); PLATELET 321 x1000/uL (130-400); RED BLOOD CELL COUNT 2.71 mill/uL (4.2-5.4); RED CELL DISTRIBUTION WIDTH 25.5 % (11.6-14.6)
[2021-09-13] MEDS ORDERED: IPRATROPIUM/ALBUTEROL 0.5-3(2.5)MG/3ML NEB HHN PRN (19:45)
[2021-09-13 19:55] LABS: PLATELET ESTIMATE NORMAL
[2021-09-13] MEDS ORDERED: GENTAMICIN SULFATE 80 MG in SODIUM CHLORIDE 0.9% 100 ML IV STA (20:28)
[2021-09-13] MEDS ORDERED: ONDANSETRON HCL 4MG/2ML INJ IV PRN (20:45)
[2021-09-13] MEDS ORDERED: CLONIDINE 0.1MG TABLET PO PRN (20:45)
[2021-09-13] MEDS ORDERED: MAGNESIUM/ALUMINUM HYDROXIDE/SIMETHICONE 30ML UDC PO PRN (20:45)
[2021-09-13] MEDS ORDERED: DOCUSATE SODIUM 100MG CAPSULE PO PRN (20:45)
[2021-09-13] MEDS ORDERED: ACETAMINOPHEN 325MG TABLET PO PRN (20:45)
[2021-09-13] MEDS ORDERED: FAMOTIDINE 20MG TABLET PO SCH (21:00)
[2021-09-13] MEDS ORDERED: MEROPENEM 1,000 MG in SODIUM CHLORIDE 0.9% 100 ML IV SCH (22:00)
[2021-09-13] MEDS ORDERED: LINEZOLID 600 MG PREMIX 300 ML IV SCH (23:00)
[2021-09-13] MEDS ORDERED: DEXTROSE 50% WATER 50ML SYRINGE IV PRN (23:00)
[2021-09-13] MEDS: ASCORBIC ACID 500 MG TABLET PO SCH (23:03)
[2021-09-13] MEDS: GUAIFENESIN 600MG ER TABLET PO SCH (23:03)
[2021-09-13] MEDS: FAMOTIDINE 20MG TABLET PO SCH (23:03)
[2021-09-14] VITALS (8 sets, daily range): BP systolic 70–122; BP diastolic 57–73
[2021-09-14] MEDS: KETOROLAC 15MG/ML VIAL IV PRN ×2 (02:01→20:44)
[2021-09-14] MEDS: ZOLPIDEM TARTRATE 5MG TABLET PO PRN (03:30)
[2021-09-14] MEDS: HYDROCODONE/ACETAMINOPHEN 10/325MG TABLET PO PRN ×4 (03:30→23:33)
[2021-09-14 04:53] LABS: CLARITY URINE CLEAR (CLEAR); COLOR URINE YELLOW (YELLOW); KETONES URINE NEGATIVE (NEGATIVE); LEUKOCYTE ESTERASE URINE 3+ (NEGATIVE); NITRITE URINE NEGATIVE (NEGATIVE); OCCULT BLOOD URINE 1+ (NEGATIVE); PH URINE 8.5 (4.5-8.0); PROTEIN URINE 1+ (NEGATIVE); UROBILINOGEN URINE 0.2 E.U./dL (0.2-1.0)
[2021-09-14] MEDS: BLOOD SUGAR DIAGNOSTIC STRIP TEST SCH ×5 (07:30→20:48)
[2021-09-14] MEDS ORDERED: MEROPENEM 1,000 MG in SODIUM CHLORIDE 0.9% 100 ML IV SCH (08:00)
[2021-09-14] MEDS: INSULIN LISPRO 100 UNITS/ML SUBCUT SCH ×5 (08:00→21:00)
[2021-09-14 10:00] LABS: BASOPHILS % 0.6 % (0.0-2.0); EOSINOPHILS % 3.2 % (0.0-5.0); HEMOGLOBIN. 8.5 g/dL (12.0-16.0); MEAN CORPUSCULAR HEMOGLOBIN 30.7 pg (28.0-32.0); MEAN CORPUSCULAR VOLUME 97.4 fL (81.0-99.0); MEAN PLATELET VOLUME 6.3 fl (7.4-10.4); MONOCYTES % 6.6 % (2.0-8.0); NEUTROPHILS % 70.6 % (40.0-76.0); PLATELET 298 x1000/uL (130-400); RED BLOOD CELL COUNT 2.77 mill/uL (4.2-5.4); RED CELL DISTRIBUTION WIDTH 24.8 % (11.6-14.6)
[2021-09-14] MEDS: FAMOTIDINE 20MG TABLET PO SCH ×2 (10:01→20:38)
[2021-09-14] MEDS: GUAIFENESIN 600MG ER TABLET PO SCH ×2 (10:01→20:39)
[2021-09-14] MEDS: ZINC SULFATE 220 MG ( 50 ) CAPSULE PO SCH (10:02)
[2021-09-14] MEDS: CHOLECALCIFEROL (D3) 1000 UNIT TABLET PO SCH (10:02)
[2021-09-14] MEDS: ASCORBIC ACID 500 MG TABLET PO SCH ×2 (10:05→20:39)
[2021-09-14] MEDS: ENOXAPARIN 40MG/0.4ML SYR SUBCUT SCH (10:05)
[2021-09-14 10:11] LABS: CHLORIDE 108 mEq/L (98-107)
[2021-09-14 10:23] LABS: CREATINE KINASE 33 IU/L (26-192); CREATINE KINASE MB FRACTION 1.5 ng/mL (0.5-3.6); PHOSPHORUS 2.5 mg/dL (2.5-4.9)
[2021-09-14] MEDS: LINEZOLID 600 MG PREMIX 300 ML IV SCH ×2 (11:22→20:38)
[2021-09-14] MEDS: MEROPENEM 1,000 MG in SODIUM CHLORIDE 0.9% 100 ML IV SCH ×2 (12:00→22:57)
[2021-09-14] MEDS: LORAZEPAM 0.5MG TABLET PO PRN (13:13)
[2021-09-14] MEDS: ACETAMINOPHEN 325MG TABLET PO PRN (13:13)
[2021-09-14] MEDS ORDERED: NALOXONE HCL 0.4MG/ML VIAL IV PRN (17:15)
[2021-09-14] MEDS: GUAIFENESIN 200MG/10ML SUGAR FREE UDC PO PRN (18:18)
[2021-09-15] VITALS (12 sets, daily range): BP systolic 105–145; BP diastolic 60–75
[2021-09-15] MEDS: GUAIFENESIN 200MG/10ML SUGAR FREE UDC PO PRN ×2 (01:16→18:55)
[2021-09-15] MEDS: LORAZEPAM 0.5MG TABLET PO PRN ×3 (02:19→20:55)
[2021-09-15] MEDS: IPRATROPIUM/ALBUTEROL 0.5-3(2.5)MG/3ML NEB HHN SCH ×4 (02:36→21:32)
[2021-09-15] MEDS: MEROPENEM 1,000 MG in SODIUM CHLORIDE 0.9% 100 ML IV SCH ×3 (05:39→22:06)
[2021-09-15] MEDS: INSULIN LISPRO 100 UNITS/ML SUBCUT SCH ×4 (08:00→21:00)
[2021-09-15] MEDS: BLOOD SUGAR DIAGNOSTIC STRIP TEST SCH ×4 (08:02→22:07)
[2021-09-15] MEDS: HYDROCODONE/ACETAMINOPHEN 10/325MG TABLET PO PRN ×2 (08:18→15:25)
[2021-09-15] MEDS: GUAIFENESIN 600MG ER TABLET PO SCH ×2 (08:19→20:23)
[2021-09-15] MEDS: ZINC SULFATE 220 MG ( 50 ) CAPSULE PO SCH (08:19)
[2021-09-15] MEDS: CHOLECALCIFEROL (D3) 1000 UNIT TABLET PO SCH (08:19)
[2021-09-15] MEDS: FAMOTIDINE 20MG TABLET PO SCH ×2 (08:19→20:23)
[2021-09-15] MEDS: LINEZOLID 600 MG PREMIX 300 ML IV SCH ×2 (08:19→20:23)
[2021-09-15] MEDS: ASCORBIC ACID 500 MG TABLET PO SCH ×2 (08:19→20:23)
[2021-09-15] MEDS: ENOXAPARIN 40MG/0.4ML SYR SUBCUT SCH (08:28)
[2021-09-15] MEDS: TRAMADOL 50MG TABLET PO PRN ×2 (10:40→20:28)
[2021-09-15] MEDS ORDERED: IOHEXOL-300 100 ML BOTTLE ONE (12:36)
[2021-09-15] MEDS ORDERED: POTASSIUM CHLORIDE 20MEQ TABLET SR PO SCH (13:00)
[2021-09-15] MEDS: KETOROLAC 15MG/ML VIAL IV PRN (14:21)
[2021-09-15] MEDS: ZOLPIDEM TARTRATE 5MG TABLET PO PRN (22:04)
[2021-09-16] VITALS (12 sets, daily range): BP systolic 96–114; BP diastolic 50–67
[2021-09-16] MEDS: KETOROLAC 15MG/ML VIAL IV PRN ×3 (00:30→20:01)
[2021-09-16] MEDS: IPRATROPIUM/ALBUTEROL 0.5-3(2.5)MG/3ML NEB HHN SCH ×4 (02:14→21:03)
[2021-09-16] MEDS: LORAZEPAM 0.5MG TABLET PO PRN ×3 (04:15→22:05)
[2021-09-16] MEDS: MEROPENEM 1,000 MG in SODIUM CHLORIDE 0.9% 100 ML IV SCH ×3 (05:39→22:05)
[2021-09-16] MEDS: TRAMADOL 50MG TABLET PO PRN ×2 (06:12→14:17)
[2021-09-16] MEDS: BLOOD SUGAR DIAGNOSTIC STRIP TEST SCH ×4 (07:28→20:02)
[2021-09-16] MEDS: INSULIN LISPRO 100 UNITS/ML SUBCUT SCH ×5 (07:28→20:29)
[2021-09-16] MEDS: ENOXAPARIN 40MG/0.4ML SYR SUBCUT SCH (09:00)
[2021-09-16] MEDS ORDERED: POTASSIUM CHLORIDE 20MEQ TABLET SR PO SCH (09:00)
[2021-09-16] MEDS: LINEZOLID 600 MG PREMIX 300 ML IV SCH ×2 (09:31→20:02)
[2021-09-16] MEDS: ASCORBIC ACID 500 MG TABLET PO SCH ×2 (09:32→20:01)
[2021-09-16] MEDS: CHOLECALCIFEROL (D3) 1000 UNIT TABLET PO SCH (09:32)
[2021-09-16] MEDS: ZINC SULFATE 220 MG ( 50 ) CAPSULE PO SCH (09:33)
[2021-09-16] MEDS: FAMOTIDINE 20MG TABLET PO SCH ×2 (09:33→20:02)
[2021-09-16] MEDS: GUAIFENESIN 600MG ER TABLET PO SCH ×2 (09:33→20:01)
[2021-09-16] MEDS: IPRATROPIUM/ALBUTEROL 0.5-3(2.5)MG/3ML NEB NEB PRN (11:34)
[2021-09-16] MEDS ORDERED: POTASSIUM CHLORIDE 20MEQ/PACKET PO NR (12:00)
[2021-09-16] MEDS: PREDNISONE 10MG TABLET PO SCH (13:05)
[2021-09-16] MEDS ORDERED: FLUCONAZOLE 400MG/200ML BAG 200 ML IV SCH (15:00)
[2021-09-16] MEDS: HYDROCODONE/ACETAMINOPHEN 10/325MG TABLET PO PRN (15:48)
[2021-09-16] MEDS: GUAIFENESIN 200MG/10ML SUGAR FREE UDC PO PRN (18:43)
[2021-09-16] MEDS: ZOLPIDEM TARTRATE 5MG TABLET PO PRN (22:05)
[2021-09-17] VITALS (9 sets, daily range): BP systolic 73–145; BP diastolic 48–93
[2021-09-17] MEDS: IPRATROPIUM/ALBUTEROL 0.5-3(2.5)MG/3ML NEB HHN SCH ×5 (03:00→22:25)
[2021-09-17] MEDS: TRAMADOL 50MG TABLET PO PRN ×3 (03:23→17:36)
[2021-09-17] MEDS: HYDROCODONE/ACETAMINOPHEN 10/325MG TABLET PO PRN ×3 (04:12→21:07)
[2021-09-17] MEDS: MEROPENEM 1,000 MG in SODIUM CHLORIDE 0.9% 100 ML IV SCH ×3 (05:17→21:06)
[2021-09-17] MEDS: INSULIN LISPRO 100 UNITS/ML SUBCUT SCH ×4 (08:00→21:06)
[2021-09-17] MEDS: BLOOD SUGAR DIAGNOSTIC STRIP TEST SCH ×4 (08:03→21:08)
[2021-09-17] MEDS: FAMOTIDINE 20MG TABLET PO SCH ×2 (08:34→21:07)
[2021-09-17] MEDS: LINEZOLID 600 MG PREMIX 300 ML IV SCH (08:34)
[2021-09-17] MEDS: LORAZEPAM 0.5MG TABLET PO PRN ×2 (08:34→21:07)
[2021-09-17] MEDS: PREDNISONE 10MG TABLET PO SCH (08:35)
[2021-09-17] MEDS: CHOLECALCIFEROL (D3) 1000 UNIT TABLET PO SCH (08:35)
[2021-09-17] MEDS: GUAIFENESIN 600MG ER TABLET PO SCH ×2 (08:35→21:06)
[2021-09-17] MEDS: ASCORBIC ACID 500 MG TABLET PO SCH ×2 (08:35→21:07)
[2021-09-17] MEDS: ENOXAPARIN 40MG/0.4ML SYR SUBCUT SCH (08:51)
[2021-09-17] MEDS: ZINC SULFATE 220 MG ( 50 ) CAPSULE PO SCH (09:00)
[2021-09-17] MEDS ORDERED: FLUCONAZOLE 100MG TABLET PO SCH (09:00)
[2021-09-17] MEDS: ACETAMINOPHEN 325MG TABLET PO PRN (13:59)
[2021-09-17] MEDS: IPRATROPIUM/ALBUTEROL 0.5-3(2.5)MG/3ML NEB NEB PRN (17:51)
[2021-09-17] MEDS: ZOLPIDEM TARTRATE 5MG TABLET PO PRN (21:06)
[2021-09-18] VITALS (8 sets, daily range): BP systolic 104–145; BP diastolic 67–87
[2021-09-18] MEDS: IPRATROPIUM/ALBUTEROL 0.5-3(2.5)MG/3ML NEB HHN SCH ×3 (01:42→13:45)
[2021-09-18] MEDS: MEROPENEM 1,000 MG in SODIUM CHLORIDE 0.9% 100 ML IV SCH ×3 (05:51→21:01)
[2021-09-18] MEDS: GUAIFENESIN 200MG/10ML SUGAR FREE UDC PO PRN (05:51)
[2021-09-18] MEDS: TRAMADOL 50MG TABLET PO PRN ×3 (06:06→17:45)
[2021-09-18] MEDS: BLOOD SUGAR DIAGNOSTIC STRIP TEST SCH ×4 (07:30→20:59)
[2021-09-18] MEDS: INSULIN LISPRO 100 UNITS/ML SUBCUT SCH ×4 (08:00→21:01)
[2021-09-18] MEDS ORDERED: PREDNISONE 10MG TABLET PO SCH (09:00)
[2021-09-18] MEDS: ENOXAPARIN 40MG/0.4ML SYR SUBCUT SCH ×2 (09:32→09:55)
[2021-09-18] MEDS: GUAIFENESIN 600MG ER TABLET PO SCH ×2 (09:32→20:59)
[2021-09-18] MEDS: ASCORBIC ACID 500 MG TABLET PO SCH ×2 (09:32→20:58)
[2021-09-18] MEDS: ZINC SULFATE 220 MG ( 50 ) CAPSULE PO SCH (09:32)
[2021-09-18] MEDS: FAMOTIDINE 20MG TABLET PO SCH ×2 (09:33→20:58)
[2021-09-18] MEDS: PREDNISONE 5MG TABLET PO SCH (09:34)
[2021-09-18] MEDS: CHOLECALCIFEROL (D3) 1000 UNIT TABLET PO SCH (09:39)
[2021-09-18] MEDS: LORAZEPAM 0.5MG TABLET PO PRN ×2 (12:48→20:58)
[2021-09-18] MEDS: LINEZOLID 600MG TABLET PO SCH (20:58)
[2021-09-19] VITALS: BP 107/73
[2021-09-19] MEDS: IPRATROPIUM/ALBUTEROL 0.5-3(2.5)MG/3ML NEB HHN SCH ×4 (01:57→20:20)
[2021-09-19 04:00] VITALS: BP 135/83
[2021-09-19] MEDS: BLOOD SUGAR DIAGNOSTIC STRIP TEST SCH ×4 (07:30→21:13)
[2021-09-19 08:00] VITALS: BP 132/80
[2021-09-19] MEDS: INSULIN LISPRO 100 UNITS/ML SUBCUT SCH ×4 (08:00→21:00)
[2021-09-19] MEDS: CHOLECALCIFEROL (D3) 1000 UNIT TABLET PO SCH (08:35)
[2021-09-19] MEDS: ASCORBIC ACID 500 MG TABLET PO SCH ×2 (08:36→21:03)
[2021-09-19] MEDS: FAMOTIDINE 20MG TABLET PO SCH ×2 (08:36→21:03)
[2021-09-19] MEDS: GUAIFENESIN 600MG ER TABLET PO SCH ×2 (08:36→21:03)
[2021-09-19] MEDS: LINEZOLID 600MG TABLET PO SCH ×2 (08:36→21:03)
[2021-09-19] MEDS: PREDNISONE 5MG TABLET PO SCH (08:36)
[2021-09-19] MEDS: ZINC SULFATE 220 MG ( 50 ) CAPSULE PO SCH (08:36)
[2021-09-19] MEDS: ACETAMINOPHEN 325MG TABLET PO PRN (08:54)
[2021-09-19] MEDS: TRAMADOL 50MG TABLET PO PRN (09:18)
[2021-09-19 12:00] VITALS: BP 118/68
[2021-09-19] MEDS: HYDROCODONE/ACETAMINOPHEN 10/325MG TABLET PO PRN ×2 (12:59→21:02)
[2021-09-19 16:00] VITALS: BP 113/75
[2021-09-19] MEDS ORDERED: SODIUM CHLORIDE 10% FOR INH 15ML VIAL NEB INH SCH ×2 (16:30→18:00)
[2021-09-19] MEDS: MEROPENEM 1,000 MG in SODIUM CHLORIDE 0.9% 100 ML IV SCH (17:53)
[2021-09-19] MEDS ORDERED: SODIUM CHLORIDE 10% FOR INH 15ML VIAL NEB INH NR (19:30)
[2021-09-19 20:00] VITALS: BP 119/75
[2021-09-20] VITALS: BP 141/65
[2021-09-20] MEDS: TRAMADOL 50MG TABLET PO PRN ×2 (00:08→09:08)
[2021-09-20] MEDS: MEROPENEM 1,000 MG in SODIUM CHLORIDE 0.9% 100 ML IV SCH ×3 (01:31→17:17)
[2021-09-20] MEDS: IPRATROPIUM/ALBUTEROL 0.5-3(2.5)MG/3ML NEB HHN SCH ×4 (01:56→19:51)
[2021-09-20] MEDS: HYDROCODONE/ACETAMINOPHEN 10/325MG TABLET PO PRN ×3 (03:55→20:26)
[2021-09-20 04:00] VITALS: BP 120/74
[2021-09-20] MEDS: ACETAMINOPHEN 325MG TABLET PO PRN ×2 (05:33→17:17)
[2021-09-20 05:35] LABS: BASOPHILS % 0.5 % (0.0-2.0); EOSINOPHILS % 3.9 % (0.0-5.0); HEMATOCRIT. 23.6 % (36.0-48.0); HEMOGLOBIN. 7.5 g/dL (12.0-16.0); LYMPHOCYTES % 25.8 % (20.0-50.0); MEAN CORPUSCULAR HEMOGLOBIN 30.1 pg (28.0-32.0); MEAN CORPUSCULAR VOLUME 93.9 fL (81.0-99.0); MONOCYTES % 10.2 % (2.0-8.0); NEUTROPHILS % 59.6 % (40.0-76.0); PLATELET 395 x1000/uL (130-400); RED BLOOD CELL COUNT 2.51 mill/uL (4.2-5.4); RED CELL DISTRIBUTION WIDTH 22.3 % (11.6-14.6)
[2021-09-20 06:00] LABS: CHLORIDE 98 mEq/L (98-107)
[2021-09-20 08:00] VITALS: BP 140/84
[2021-09-20] MEDS: INSULIN LISPRO 100 UNITS/ML SUBCUT SCH ×4 (08:00→20:27)
[2021-09-20] MEDS: BLOOD SUGAR DIAGNOSTIC STRIP TEST SCH ×4 (08:02→20:28)
[2021-09-20] MEDS: CHOLECALCIFEROL (D3) 1000 UNIT TABLET PO SCH (09:06)
[2021-09-20] MEDS: GUAIFENESIN 600MG ER TABLET PO SCH ×2 (09:06→20:25)
[2021-09-20] MEDS: ASCORBIC ACID 500 MG TABLET PO SCH ×2 (09:07→20:26)
[2021-09-20] MEDS: ZINC SULFATE 220 MG ( 50 ) CAPSULE PO SCH (09:07)
[2021-09-20] MEDS: FAMOTIDINE 20MG TABLET PO SCH ×2 (09:07→20:25)
[2021-09-20] MEDS: LINEZOLID 600MG TABLET PO SCH ×2 (09:07→20:26)
[2021-09-20] MEDS: PREDNISONE 5MG TABLET PO SCH (09:07)
[2021-09-20] MEDS: ENOXAPARIN 40MG/0.4ML SYR SUBCUT SCH (09:10)
[2021-09-20] MEDS ORDERED: SODIUM CHLORIDE 10% FOR INH 15ML VIAL NEB INH SCH (10:30)
[2021-09-20 12:00] VITALS: BP 120/68
[2021-09-20 15:49] VITALS: BP 130/82
[2021-09-20 20:00] VITALS: BP 127/63
[2021-09-20] MEDS: GUAIFENESIN 200MG/10ML SUGAR FREE UDC PO PRN (21:29)
[2021-09-21] VITALS (7 sets, daily range): BP systolic 102–150; BP diastolic 59–83
[2021-09-21] MEDS: IPRATROPIUM/ALBUTEROL 0.5-3(2.5)MG/3ML NEB HHN SCH ×4 (00:48→21:00)
[2021-09-21] MEDS: MEROPENEM 1,000 MG in SODIUM CHLORIDE 0.9% 100 ML IV SCH ×3 (01:05→17:56)
[2021-09-21] MEDS: HYDROCODONE/ACETAMINOPHEN 10/325MG TABLET PO PRN ×3 (03:10→18:15)
[2021-09-21] MEDS: GUAIFENESIN 200MG/10ML SUGAR FREE UDC PO PRN (03:10)
[2021-09-21] MEDS: BLOOD SUGAR DIAGNOSTIC STRIP TEST SCH ×4 (07:30→21:34)
[2021-09-21] MEDS: INSULIN LISPRO 100 UNITS/ML SUBCUT SCH ×4 (08:00→21:35)
[2021-09-21] MEDS: ENOXAPARIN 40MG/0.4ML SYR SUBCUT SCH (09:00)
[2021-09-21] MEDS: ASCORBIC ACID 500 MG TABLET PO SCH ×2 (09:16→21:34)
[2021-09-21] MEDS: PREDNISONE 5MG TABLET PO SCH (09:16)
[2021-09-21] MEDS: FAMOTIDINE 20MG TABLET PO SCH ×2 (09:16→21:34)
[2021-09-21] MEDS: LINEZOLID 600MG TABLET PO SCH ×2 (09:17→21:34)
[2021-09-21] MEDS: ZINC SULFATE 220 MG ( 50 ) CAPSULE PO SCH (09:17)
[2021-09-21] MEDS: CHOLECALCIFEROL (D3) 1000 UNIT TABLET PO SCH (09:17)
[2021-09-21] MEDS: GUAIFENESIN 600MG ER TABLET PO SCH ×2 (09:17→21:34)
[2021-09-22] VITALS: BP 123/76
[2021-09-22] MEDS: HYDROCODONE/ACETAMINOPHEN 10/325MG TABLET PO PRN ×5 (00:19→20:52)
[2021-09-22] MEDS: IPRATROPIUM/ALBUTEROL 0.5-3(2.5)MG/3ML NEB HHN SCH ×4 (02:24→20:16)
[2021-09-22] MEDS: MEROPENEM 1,000 MG in SODIUM CHLORIDE 0.9% 100 ML IV SCH ×3 (03:06→18:25)
[2021-09-22 04:00] VITALS: BP 107/69
[2021-09-22] MEDS: GUAIFENESIN 200MG/10ML SUGAR FREE UDC PO PRN ×2 (04:07→11:33)
[2021-09-22 06:16] LABS: CHLORIDE 102 mEq/L (98-107)
[2021-09-22 06:38] LABS: EOSINOPHILS % 2.1 % (0.0-5.0); HEMATOCRIT. 27.3 % (36.0-48.0); HEMOGLOBIN. 8.6 g/dL (12.0-16.0); LYMPHOCYTES % 25.9 % (20.0-50.0); MEAN CORPUSCULAR HEMOGLOBIN 30.2 pg (28.0-32.0); MEAN CORPUSCULAR VOLUME 96.1 fL (81.0-99.0); MEAN PLATELET VOLUME 6.4 fl (7.4-10.4); MONOCYTES % 10.1 % (2.0-8.0); NEUTROPHILS % 60.9 % (40.0-76.0); PLATELET 425 x1000/uL (130-400); RED BLOOD CELL COUNT 2.84 mill/uL (4.2-5.4); RED CELL DISTRIBUTION WIDTH 23.4 % (11.6-14.6)
[2021-09-22] MEDS: BLOOD SUGAR DIAGNOSTIC STRIP TEST SCH ×4 (06:57→20:53)
[2021-09-22] MEDS: INSULIN LISPRO 100 UNITS/ML SUBCUT SCH ×4 (07:50→21:06)
[2021-09-22 08:00] VITALS: BP 127/70
[2021-09-22] MEDS: ENOXAPARIN 40MG/0.4ML SYR SUBCUT SCH ×2 (09:00→10:15)
[2021-09-22] MEDS: PREDNISONE 5MG TABLET PO SCH (10:15)
[2021-09-22] MEDS: GUAIFENESIN 600MG ER TABLET PO SCH ×2 (10:16→20:51)
[2021-09-22] MEDS: CHOLECALCIFEROL (D3) 1000 UNIT TABLET PO SCH (10:16)
[2021-09-22] MEDS: ZINC SULFATE 220 MG ( 50 ) CAPSULE PO SCH (10:16)
[2021-09-22] MEDS: LINEZOLID 600MG TABLET PO SCH ×2 (10:16→20:52)
[2021-09-22] MEDS: FAMOTIDINE 20MG TABLET PO SCH ×2 (10:16→20:52)
[2021-09-22] MEDS: ASCORBIC ACID 500 MG TABLET PO SCH ×2 (10:16→20:52)
[2021-09-22 12:00] VITALS: BP 105/65
[2021-09-22 15:30] VITALS: BP 121/71
[2021-09-22] MEDS ORDERED: DILTIAZEM HCL 30MG TABLET PO SCH (15:30)
[2021-09-22] MEDS: IPRATROPIUM/ALBUTEROL 0.5-3(2.5)MG/3ML NEB NEB PRN (16:26)
[2021-09-22 20:00] VITALS: BP 105/66
[2021-09-22] MEDS: DILTIAZEM HCL 30MG TABLET PO SCH (20:52)
[2021-09-23] VITALS (7 sets, daily range): BP systolic 103–123; BP diastolic 59–75
[2021-09-23] MEDS: HYDROCODONE/ACETAMINOPHEN 10/325MG TABLET PO PRN ×5 (01:18→23:42)
[2021-09-23] MEDS: MEROPENEM 1,000 MG in SODIUM CHLORIDE 0.9% 100 ML IV SCH ×3 (01:18→18:43)
[2021-09-23] MEDS: IPRATROPIUM/ALBUTEROL 0.5-3(2.5)MG/3ML NEB HHN SCH ×4 (02:00→20:14)
[2021-09-23] MEDS: DILTIAZEM HCL 30MG TABLET PO SCH ×4 (03:11→20:00)
[2021-09-23] MEDS: GUAIFENESIN 200MG/10ML SUGAR FREE UDC PO PRN (03:18)
[2021-09-23] MEDS: BLOOD SUGAR DIAGNOSTIC STRIP TEST SCH ×4 (06:35→21:00)
[2021-09-23] MEDS: NITROGLYCERIN 0.4MG TABLET SL SL PRN ×2 (07:15→07:20)
[2021-09-23] MEDS: INSULIN LISPRO 100 UNITS/ML SUBCUT SCH ×4 (07:45→21:00)
[2021-09-23] MEDS: PREDNISONE 5MG TABLET PO SCH (09:20)
[2021-09-23] MEDS: CHOLECALCIFEROL (D3) 1000 UNIT TABLET PO SCH (09:23)
[2021-09-23] MEDS: ASCORBIC ACID 500 MG TABLET PO SCH ×2 (09:23→22:13)
[2021-09-23] MEDS: FAMOTIDINE 20MG TABLET PO SCH ×2 (09:23→22:12)
[2021-09-23] MEDS: GUAIFENESIN 600MG ER TABLET PO SCH ×2 (09:23→22:13)
[2021-09-23] MEDS: LINEZOLID 600MG TABLET PO SCH (09:23)
[2021-09-23] MEDS: ZINC SULFATE 220 MG ( 50 ) CAPSULE PO SCH (09:23)
[2021-09-23] MEDS: ENOXAPARIN 40MG/0.4ML SYR SUBCUT SCH (09:24)
[2021-09-23] MEDS: IPRATROPIUM/ALBUTEROL 0.5-3(2.5)MG/3ML NEB NEB PRN (12:16)
[2021-09-23 13:06] LABS: QFT MITOGEN VALUE >10.00 IU/mL (.); QFT TB GOLD PLUS Negative (Negative)
[2021-09-24] VITALS (7 sets, daily range): BP systolic 97–129; BP diastolic 65–97
[2021-09-24] MEDS: IPRATROPIUM/ALBUTEROL 0.5-3(2.5)MG/3ML NEB HHN SCH ×3 (02:34→13:21)
[2021-09-24] MEDS: DILTIAZEM HCL 30MG TABLET PO SCH ×3 (03:01→15:48)
[2021-09-24] MEDS: MEROPENEM 1,000 MG in SODIUM CHLORIDE 0.9% 100 ML IV SCH ×2 (03:01→14:34)
[2021-09-24] MEDS: GUAIFENESIN 200MG/10ML SUGAR FREE UDC PO PRN ×2 (03:12→15:48)
[2021-09-24 04:07] LABS: HISTOPLASMA ABS QT DID None Detected (.)
[2021-09-24] MEDS: BLOOD SUGAR DIAGNOSTIC STRIP TEST SCH ×3 (07:20→17:20)
[2021-09-24] MEDS: INSULIN LISPRO 100 UNITS/ML SUBCUT SCH ×3 (07:50→17:50)
[2021-09-24] MEDS: ENOXAPARIN 40MG/0.4ML SYR SUBCUT SCH (09:00)
[2021-09-24] MEDS: HYDROCODONE/ACETAMINOPHEN 10/325MG TABLET PO PRN ×3 (10:12→20:34)
[2021-09-24] MEDS: CHOLECALCIFEROL (D3) 1000 UNIT TABLET PO SCH (10:12)
[2021-09-24] MEDS: PREDNISONE 5MG TABLET PO SCH (10:13)
[2021-09-24] MEDS: FAMOTIDINE 20MG TABLET PO SCH (10:14)
[2021-09-24] MEDS: ASCORBIC ACID 500 MG TABLET PO SCH (10:14)
[2021-09-24] MEDS: ZINC SULFATE 220 MG ( 50 ) CAPSULE PO SCH (10:14)
[2021-09-24] MEDS: GUAIFENESIN 600MG ER TABLET PO SCH (10:14)
== END 2021-09-24 21:05 | DRG 871 ==
LOC: ER 17:46 → MICUSO 20:37 → 5EST 09-14 07:08 → 6WST 09-21 12:45
PROVIDERS: ADMIT Internal Medicine; ATTEND Internal Medicine
DX: A41.59 Other Gram-negative sepsis (principal); L89.153 Pressure ulcer of sacral region, stage 3; J18.9 Pneumonia, unspecified organism; I42.9 Cardiomyopathy, unspecified; E44.0 Moderate protein-calorie malnutrition; G45.9 Transient cerebral ischemic attack, unspecified; I50.22 Chronic systolic (congestive) heart failure; J44.0 Chronic obstructive pulmonary disease with (acute) lower respiratory infection; J96.10 Chronic respiratory failure, unspecified whether with hypoxia or hypercapnia; N39.0 Urinary tract infection, site not specified; Z16.24 Resistance to multiple antibiotics; D64.9 Anemia, unspecified; E03.9 Hypothyroidism, unspecified; Z20.822 Contact with and (suspected) exposure to COVID-19; E11.69 Type 2 diabetes mellitus with other specified complication; G93.2 Benign intracranial hypertension; G89.4 Chronic pain syndrome; I11.0 Hypertensive heart disease with heart failure; R65.20 Severe sepsis without septic shock; E11.649 Type 2 diabetes mellitus with hypoglycemia without coma; F41.9 Anxiety disorder, unspecified; E87.6 Hypokalemia; Z79.4 Long term (current) use of insulin; Z99.81 Dependence on supplemental oxygen; Z79.899 Other long term (current) drug therapy; Z79.891 Long term (current) use of opiate analgesic; Z68.28 Body mass index [BMI] 28.0-28.9, adult; Z79.52 Long term (current) use of systemic steroids; Z86.19 Personal history of other infectious and parasitic diseases; M81.0 Age-related osteoporosis without current pathological fracture; R91.1 Solitary pulmonary nodule
CPT/HCPCS: 36415; 71045; 71260; 74018; 80048; 80053; 81003; 82378; 82550; 82553; 82784; 82962; 83036; 83605; 83735; 84100; 84145; 84484; 85025; 86480; 86635; 86698; 87077; 87116; 87186; 87305; 87426; 87899; 93005; 93970; 94640; 97110; 97162; 97166; 97530; 97535; 99285; J1450; J1580; J1650; J1815; J1885; J2020; J2185; J3370; J7030; J7050; J7131; J7512; Q9967

== ENCOUNTER 2021-12-10 01:52 | Inpatient (IN) | payer MEDICARE, MEDICAID ==
[~2021-12-10] VITALS: Ht 157.5 cm; Wt 54.5 kg
[2021-12-10] MEDS ORDERED: PREDNISONE 20MG TABLET PO STA (02:09)
[2021-12-10] MEDS ORDERED: ALBUTEROL (0.083%) 2.5MG/3ML NEB HHN STA (02:09)
[2021-12-10] MEDS ORDERED: IPRATROPIUM BROMIDE (0.02%) 0.5MG/2.5ML NEB HHN STA (02:09)
[2021-12-10] MEDS ORDERED: SODIUM CHLORIDE 0.9% 1,000 ML IV ONE (02:15)
[2021-12-10] MEDS ORDERED: MAGNESIUM 2 G PREMIX 50 ML IV ONE (02:15)
[2021-12-10 02:45] LABS: HEMATOCRIT 38.2 % (36.0-48.0); HEMOGLOBIN 12.1 g/dL (12.0-16.0); MEAN CORPUSCULAR HEMOGLOBIN 28.9 pg (28.0-32.0); MEAN CORPUSCULAR VOLUME 91.2 fL (81.0-99.0); PLATELET 436 x1000/uL (130-400); RED BLOOD CELL COUNT 4.19 mill/uL (4.2-5.4); RED CELL DISTRIBUTION WIDTH 16.5 % (11.6-14.6)
[2021-12-10 02:57] LABS: CHLORIDE 97 mEq/L (98-107)
[2021-12-10 03:04] LABS: CREATINE KINASE 96 IU/L (26-192)
[2021-12-10] MEDS ORDERED: POTASSIUM CHLORIDE 20MEQ TABLET SR PO NR (03:45)
[2021-12-10] MEDS ORDERED: POTASSIUM CHLORIDE INJ 40 MEQ in DEXT 5% WATER 250 ML IV ONE (03:45)
[2021-12-10] MEDS: KCL 20MEQ/100ML X 2 FOR TOTAL KCL 40MEQ/200ML IV SCH ×2 (04:16→06:20)
[2021-12-10] MEDS ORDERED: CEFTRIAXONE 1 G PREMIX 50 ML IV ONE (04:45)
[2021-12-10] MEDS ORDERED: AZITHROMYCIN 500 MG in DEXT 5% WATER 250 ML IV SCH (04:45)
[2021-12-10] MEDS ORDERED: AZITHROMYCIN 500MG/250ML 250 ML IV SCH (06:30)
[2021-12-10] MEDS ORDERED: HYDROCODONE/ACETAMINOPHEN 5/325MG TABLET PO PRN (06:45)
[2021-12-10] MEDS ORDERED: DOCUSATE SODIUM 100MG CAPSULE PO PRN (06:45)
[2021-12-10] MEDS ORDERED: ONDANSETRON HCL 4MG/2ML INJ IV PRN (06:45)
[2021-12-10] MEDS ORDERED: MAGNESIUM/ALUMINUM HYDROXIDE/SIMETHICONE 30ML UDC PO PRN (06:45)
[2021-12-10] MEDS ORDERED: ACETAMINOPHEN 325MG TABLET PO PRN (06:45)
[2021-12-10] MEDS ORDERED: CLONIDINE 0.1MG TABLET PO PRN (06:45)
[2021-12-10] MEDS ORDERED: IPRATROPIUM/ALBUTEROL 0.5-3(2.5)MG/3ML NEB NEB PRN (06:45)
[2021-12-10] MEDS ORDERED: KCL 10MEQ/50ML PREMIX 50 ML IV NR ×2 (06:45→10:00)
[2021-12-10] MEDS ORDERED: GUAIFENESIN 200MG/10ML SUGAR FREE UDC PO PRN (06:45)
[2021-12-10] MEDS: ENOXAPARIN 40MG/0.4ML SYR SUBCUT SCH ×2 (09:00→10:27)
[2021-12-10] MEDS ORDERED: AMLODIPINE 10MG TABLET PO SCH (09:00)
[2021-12-10] MEDS ORDERED: DEXTROSE 50% WATER 50ML SYRINGE IV PRN (09:45)
[2021-12-10] MEDS: ISOSORBIDE DINITRATE 20MG TABLET PO SCH ×3 (10:28→16:11)
[2021-12-10] MEDS: GABAPENTIN 100MG CAPSULE PO SCH ×2 (10:28→17:29)
[2021-12-10] MEDS: METHIMAZOLE 5MG TABLET PO SCH (10:28)
[2021-12-10] MEDS: GUAIFENESIN 600MG ER TABLET PO SCH ×2 (10:28→21:40)
[2021-12-10] MEDS: LORATADINE 10MG TABLET PO SCH (10:29)
[2021-12-10] MEDS: FAMOTIDINE 20MG TABLET PO SCH ×2 (10:29→17:29)
[2021-12-10] MEDS: PREDNISONE 20MG TABLET PO SCH (10:29)
[2021-12-10] MEDS: CARVEDILOL 6.25 MG TABLET PO SCH ×2 (10:29→16:11)
[2021-12-10] MEDS: DILTIAZEM HCL 120MG CAPSULE CD 24HR PO SCH (10:30)
[2021-12-10 12:00] VITALS: BP 130/89
[2021-12-10 12:08] VITALS: BP 140/85
[2021-12-10] MEDS: BLOOD SUGAR DIAGNOSTIC STRIP TEST SCH ×3 (12:50→21:28)
[2021-12-10] MEDS: INSULIN LISPRO 100 UNITS/ML SUBCUT SCH ×3 (12:50→21:00)
[2021-12-10 13:03] LABS: CHLORIDE 97 mEq/L (98-107)
[2021-12-10] MEDS ORDERED: POTASSIUM CHLORIDE 20MEQ/PACKET PO NR (13:15)
[2021-12-10] MEDS: ALPRAZOLAM 0.25 MG TABLET PO PRN (13:44)
[2021-12-10] MEDS ORDERED: NALOXONE HCL 0.4MG/ML VIAL IV PRN (14:00)
[2021-12-10 16:00] VITALS: BP 105/72
[2021-12-10] MEDS: BUDESONIDE 0.5MG/2ML NEB HHN SCH (17:23)
[2021-12-10] MEDS: IPRATROPIUM/ALBUTEROL 0.5-3(2.5)MG/3ML NEB HHN SCH ×2 (17:23→21:40)
[2021-12-10 20:00] VITALS: BP 129/79
[2021-12-10] MEDS: MONTELUKAST SODIUM 10MG TABLET PO SCH (21:40)
[2021-12-11] VITALS (7 sets, daily range): BP systolic 111–147; BP diastolic 66–93
[2021-12-11] MEDS: TRAMADOL 50MG TABLET PO PRN (00:53)
[2021-12-11] MEDS: IPRATROPIUM/ALBUTEROL 0.5-3(2.5)MG/3ML NEB HHN SCH ×6 (01:12→20:54)
[2021-12-11] MEDS: BUDESONIDE 0.5MG/2ML NEB HHN SCH ×2 (05:00→08:13)
[2021-12-11] MEDS: OXYCODONE HCL/ACETAMINOPHEN 5/325MG TABLET PO PRN ×2 (05:50→18:27)
[2021-12-11] MEDS: BLOOD SUGAR DIAGNOSTIC STRIP TEST SCH ×4 (06:00→21:04)
[2021-12-11] MEDS: INSULIN LISPRO 100 UNITS/ML SUBCUT SCH ×4 (06:00→21:00)
[2021-12-11] MEDS: ALPRAZOLAM 0.25 MG TABLET PO PRN (06:38)
[2021-12-11 07:44] LABS: BASOPHILS % 0.1 % (0.0-2.0); EOSINOPHILS % 0.5 % (0.0-5.0); HEMATOCRIT. 32.9 % (36.0-48.0); HEMOGLOBIN. 10.5 g/dL (12.0-16.0); LYMPHOCYTES % 9.6 % (20.0-50.0); MEAN CORPUSCULAR HEMOGLOBIN 28.9 pg (28.0-32.0); MEAN CORPUSCULAR VOLUME 90.8 fL (81.0-99.0); MONOCYTES % 7.7 % (2.0-8.0); NEUTROPHILS % 82.1 % (40.0-76.0); PLATELET 388 x1000/uL (130-400); RED BLOOD CELL COUNT 3.63 mill/uL (4.2-5.4); RED CELL DISTRIBUTION WIDTH 16.1 % (11.6-14.6)
[2021-12-11 07:55] LABS: CHLORIDE 98 mEq/L (98-107)
[2021-12-11 08:06] LABS: HDL CHOLESTEROL 44 mg/dL (40-59); LDL CHOLESTEROL 74 mg/dL (5-100)
[2021-12-11] MEDS ORDERED: POTASSIUM CHLORIDE 20MEQ TABLET SR PO NR (08:30)
[2021-12-11] MEDS: ENOXAPARIN 40MG/0.4ML SYR SUBCUT SCH (09:00)
[2021-12-11] MEDS: DILTIAZEM HCL 120MG CAPSULE CD 24HR PO SCH (09:00)
[2021-12-11] MEDS: GUAIFENESIN 600MG ER TABLET PO SCH ×2 (09:06→21:36)
[2021-12-11] MEDS: LORATADINE 10MG TABLET PO SCH (09:06)
[2021-12-11] MEDS: METHIMAZOLE 5MG TABLET PO SCH (09:06)
[2021-12-11] MEDS: GABAPENTIN 100MG CAPSULE PO SCH ×2 (09:06→18:18)
[2021-12-11] MEDS: ISOSORBIDE DINITRATE 20MG TABLET PO SCH ×3 (09:06→17:00)
[2021-12-11] MEDS: FAMOTIDINE 20MG TABLET PO SCH ×2 (09:07→18:18)
[2021-12-11] MEDS: CARVEDILOL 6.25 MG TABLET PO SCH ×3 (09:07→18:26)
[2021-12-11] MEDS: PREDNISONE 20MG TABLET PO SCH (09:07)
[2021-12-11] MEDS: NITROFURANTOIN 100MG M/M CAPSULE PO SCH ×2 (13:25→21:36)
[2021-12-11 21:20] LABS: CLARITY URINE CLEAR (CLEAR); COLOR URINE YELLOW (YELLOW); KETONES URINE NEGATIVE (NEGATIVE); LEUKOCYTE ESTERASE URINE 2+ (NEGATIVE); NITRITE URINE POSITIVE (NEGATIVE); OCCULT BLOOD URINE NEGATIVE (NEGATIVE); PH URINE 6.5 (4.5-8.0); PROTEIN URINE NEGATIVE (NEGATIVE); SPECIFIC GRAVITY URINE 1.019 (1.005-1.030)
[2021-12-11] MEDS: MONTELUKAST SODIUM 10MG TABLET PO SCH (21:36)
[2021-12-12] MEDS: IPRATROPIUM/ALBUTEROL 0.5-3(2.5)MG/3ML NEB HHN SCH ×6 (00:31→21:33)
[2021-12-12] MEDS: OXYCODONE HCL/ACETAMINOPHEN 5/325MG TABLET PO PRN ×2 (03:53→14:04)
[2021-12-12 04:00] VITALS: BP 155/89
[2021-12-12] MEDS: BUDESONIDE 0.5MG/2ML NEB HHN SCH ×2 (04:00→21:34)
[2021-12-12] MEDS: ALPRAZOLAM 0.25 MG TABLET PO PRN ×2 (04:41→12:49)
[2021-12-12] MEDS: BLOOD SUGAR DIAGNOSTIC STRIP TEST SCH ×4 (06:05→20:22)
[2021-12-12] MEDS: INSULIN LISPRO 100 UNITS/ML SUBCUT SCH ×4 (06:05→20:24)
[2021-12-12 06:43] LABS: BASOPHILS % 0.1 % (0.0-2.0); EOSINOPHILS % 1.4 % (0.0-5.0); HEMATOCRIT. 32.9 % (36.0-48.0); HEMOGLOBIN. 10.5 g/dL (12.0-16.0); LYMPHOCYTES % 8.8 % (20.0-50.0); MEAN CORPUSCULAR HEMOGLOBIN 29.1 pg (28.0-32.0); MEAN CORPUSCULAR VOLUME 90.8 fL (81.0-99.0); MEAN PLATELET VOLUME 6.9 fl (7.4-10.4); MONOCYTES % 7.8 % (2.0-8.0); NEUTROPHILS % 81.9 % (40.0-76.0); PLATELET 370 x1000/uL (130-400); RED BLOOD CELL COUNT 3.62 mill/uL (4.2-5.4); RED CELL DISTRIBUTION WIDTH 16.3 % (11.6-14.6)
[2021-12-12 06:43] LABS: CHLORIDE 100 mEq/L (98-107)
[2021-12-12] MEDS ORDERED: GUAIFENESIN 200MG/10ML SUGAR FREE UDC PO PRN (07:15)
[2021-12-12 08:00] VITALS: BP 163/72
[2021-12-12] MEDS: ENOXAPARIN 40MG/0.4ML SYR SUBCUT SCH (09:00)
[2021-12-12] MEDS: FAMOTIDINE 20MG TABLET PO SCH ×2 (10:55→18:07)
[2021-12-12] MEDS: NITROFURANTOIN 100MG M/M CAPSULE PO SCH ×2 (10:55→20:22)
[2021-12-12] MEDS: GUAIFENESIN 600MG ER TABLET PO SCH ×2 (10:55→20:22)
[2021-12-12] MEDS: GABAPENTIN 100MG CAPSULE PO SCH ×2 (10:56→18:07)
[2021-12-12] MEDS: PREDNISONE 20MG TABLET PO SCH (10:56)
[2021-12-12] MEDS: CARVEDILOL 6.25 MG TABLET PO SCH ×2 (10:56→18:09)
[2021-12-12] MEDS: DILTIAZEM HCL 120MG CAPSULE CD 24HR PO SCH (10:57)
[2021-12-12] MEDS: LORATADINE 10MG TABLET PO SCH (10:58)
[2021-12-12] MEDS: METHIMAZOLE 5MG TABLET PO SCH (11:00)
[2021-12-12] MEDS: ISOSORBIDE DINITRATE 20MG TABLET PO SCH ×3 (11:03→18:08)
[2021-12-12 12:00] VITALS: BP 140/68
[2021-12-12] MEDS ORDERED: METHYLPREDNISOLONE SOD SUCC 40 MG/ML VIAL IV SCH (13:30)
[2021-12-12 14:17] LABS: BG BASE EXCESS 14.1 mmol/L (-2.0-2.0); BG CARBOXYHEMOGLOBIN 0.8 % (0.5-1.5); BG DEOXYHEMOGLOBIN 7.3 % (0.0-5.0); BG FRACTION INSPIRED OXYGEN 40; BG HCO3 ACT 41.2 mmol/L (22.0-26.0); BG METHEMOGLOBIN 0.1 % (0.0-1.5); BG OXYGEN SATURATION 92.6 % (92.0-98.5); BG OXYHEMOGLOBIN 91.8 % (94.0-97.0); BG PCO2 63.5 mmHg (35.0-45.0); BG PO2 66.8 mmHg (75.0-100.0); BG SAMPLE SITE RIGHT RADIAL; BG TOTAL HEMOGLOBIN 12.8 g/dL (12.0-18.0); BG VENT MODE NASAL CANNULA
[2021-12-12 16:00] VITALS: BP 135/82
[2021-12-12] MEDS: THEOPHYLLINE ANHYDROUS 80 MG/15 ML 120ML PO SCH (18:30)
[2021-12-12 20:00] VITALS: BP 114/79
[2021-12-12] MEDS: MONTELUKAST SODIUM 10MG TABLET PO SCH (20:22)
[2021-12-13] VITALS: BP 118/78
[2021-12-13] MEDS: THEOPHYLLINE ANHYDROUS 80 MG/15 ML 120ML PO SCH ×3 (00:21→12:00)
[2021-12-13] MEDS: IPRATROPIUM/ALBUTEROL 0.5-3(2.5)MG/3ML NEB HHN SCH ×6 (02:01→21:23)
[2021-12-13 04:00] VITALS: BP 125/81
[2021-12-13] MEDS: TRAMADOL 50MG TABLET PO PRN (04:57)
[2021-12-13 06:40] LABS: HEMATOCRIT 37.5 % (36.0-48.0); HEMOGLOBIN 11.8 g/dL (12.0-16.0); MEAN CORPUSCULAR HEMOGLOBIN 29.1 pg (28.0-32.0); MEAN CORPUSCULAR VOLUME 92.2 fL (81.0-99.0); PLATELET 354 x1000/uL (130-400); RED BLOOD CELL COUNT 4.07 mill/uL (4.2-5.4)
[2021-12-13 06:46] LABS: CHLORIDE 98 mEq/L (98-107)
[2021-12-13] MEDS: BLOOD SUGAR DIAGNOSTIC STRIP TEST SCH ×4 (06:48→21:38)
[2021-12-13 08:00] VITALS: BP 125/77
[2021-12-13] MEDS: ENOXAPARIN 40MG/0.4ML SYR SUBCUT SCH ×2 (08:31→09:22)
[2021-12-13] MEDS: NITROFURANTOIN 100MG M/M CAPSULE PO SCH ×2 (08:31→21:37)
[2021-12-13] MEDS: GUAIFENESIN 600MG ER TABLET PO SCH ×2 (08:32→21:37)
[2021-12-13] MEDS: CARVEDILOL 6.25 MG TABLET PO SCH ×2 (08:32→17:41)
[2021-12-13] MEDS: PREDNISONE 20MG TABLET PO SCH (08:32)
[2021-12-13] MEDS: METHIMAZOLE 5MG TABLET PO SCH (08:33)
[2021-12-13] MEDS: FAMOTIDINE 20MG TABLET PO SCH ×2 (08:33→17:41)
[2021-12-13] MEDS: GABAPENTIN 100MG CAPSULE PO SCH ×2 (08:33→17:41)
[2021-12-13] MEDS: DILTIAZEM HCL 120MG CAPSULE CD 24HR PO SCH (08:33)
[2021-12-13] MEDS: LORATADINE 10MG TABLET PO SCH (08:33)
[2021-12-13] MEDS: INSULIN LISPRO 100 UNITS/ML SUBCUT SCH ×2 (08:34→13:10)
[2021-12-13] MEDS: ISOSORBIDE DINITRATE 20MG TABLET PO SCH ×3 (08:34→17:41)
[2021-12-13] MEDS: BUDESONIDE 0.5MG/2ML NEB HHN SCH ×2 (08:36→21:00)
[2021-12-13 12:00] VITALS: BP 129/75
[2021-12-13 12:40] LABS: BG BASE EXCESS 13.9 mmol/L (-2.0-2.0); BG CARBOXYHEMOGLOBIN 0.3 % (0.5-1.5); BG DEOXYHEMOGLOBIN 2.2 % (0.0-5.0); BG FRACTION INSPIRED OXYGEN 50; BG HCO3 ACT 39.2 mmol/L (22.0-26.0); BG OXYGEN SATURATION 97.8 % (92.0-98.5); BG OXYHEMOGLOBIN 97.5 % (94.0-97.0); BG PCO2 52.6 mmHg (35.0-45.0); BG PO2 109.2 mmHg (75.0-100.0); BG SAMPLE SITE RIGHT RADIAL; BG TOTAL HEMOGLOBIN 11.1 g/dL (12.0-18.0); BG VENT MODE MASK - BIPAP
[2021-12-13] MEDS: OXYCODONE HCL/ACETAMINOPHEN 5/325MG TABLET PO PRN ×2 (13:29→21:48)
[2021-12-13 16:00] VITALS: BP 102/57
[2021-12-13] MEDS: ALPRAZOLAM 0.25 MG TABLET PO PRN (16:33)
[2021-12-13 20:00] VITALS: BP 104/56
[2021-12-13] MEDS: MONTELUKAST SODIUM 10MG TABLET PO SCH (21:37)
[2021-12-14] VITALS: BP 124/73
[2021-12-14] MEDS: IPRATROPIUM/ALBUTEROL 0.5-3(2.5)MG/3ML NEB HHN SCH ×3 (01:00→09:16)
[2021-12-14 04:00] VITALS: BP 118/73
[2021-12-14 08:00] VITALS: BP 154/74
[2021-12-14] MEDS: INSULIN LISPRO 100 UNITS/ML SUBCUT SCH ×2 (08:10→12:12)
[2021-12-14] MEDS: BLOOD SUGAR DIAGNOSTIC STRIP TEST SCH ×2 (08:28→12:04)
[2021-12-14] MEDS: NITROFURANTOIN 100MG M/M CAPSULE PO SCH (08:29)
[2021-12-14] MEDS: DILTIAZEM HCL 120MG CAPSULE CD 24HR PO SCH (08:29)
[2021-12-14] MEDS: LORATADINE 10MG TABLET PO SCH (08:29)
[2021-12-14] MEDS: CARVEDILOL 6.25 MG TABLET PO SCH (08:29)
[2021-12-14] MEDS: GUAIFENESIN 600MG ER TABLET PO SCH (08:29)
[2021-12-14] MEDS: PREDNISONE 20MG TABLET PO SCH (08:29)
[2021-12-14] MEDS: GABAPENTIN 100MG CAPSULE PO SCH (08:29)
[2021-12-14] MEDS: FAMOTIDINE 20MG TABLET PO SCH (08:29)
[2021-12-14] MEDS: OXYCODONE HCL/ACETAMINOPHEN 5/325MG TABLET PO PRN (08:32)
[2021-12-14] MEDS: THEOPHYLLINE ANHYDROUS 80 MG/15 ML 120ML PO SCH ×2 (08:49→12:09)
[2021-12-14] MEDS: ISOSORBIDE DINITRATE 20MG TABLET PO SCH ×2 (08:50→12:08)
[2021-12-14] MEDS: METHIMAZOLE 5MG TABLET PO SCH (09:00)
[2021-12-14 10:44] VITALS: BP 142/76
[2021-12-14 11:46] VITALS: BP 131/73
== END 2021-12-14 12:50 | disposition home or self-care (01) | DRG 189 ==
LOC: ER 01:52 → 7WST 04:50 → EDBEDREQTM 04:58 → EDBEDREQ 04:58 → ENRESERV 08:03
PROVIDERS: ADMIT Hospitalist; ATTEND Hospitalist
DX: J96.22 Acute and chronic respiratory failure with hypercapnia (principal); E43 Unspecified severe protein-calorie malnutrition; L89.153 Pressure ulcer of sacral region, stage 3; J44.1 Chronic obstructive pulmonary disease with (acute) exacerbation; N39.0 Urinary tract infection, site not specified; I50.22 Chronic systolic (congestive) heart failure; E87.3 Alkalosis; I11.0 Hypertensive heart disease with heart failure; E86.0 Dehydration; E87.6 Hypokalemia; E11.65 Type 2 diabetes mellitus with hyperglycemia; D64.9 Anemia, unspecified; E03.9 Hypothyroidism, unspecified; F41.9 Anxiety disorder, unspecified; E05.90 Thyrotoxicosis, unspecified without thyrotoxic crisis or storm; D72.829 Elevated white blood cell count, unspecified; R30.0 Dysuria; Z79.52 Long term (current) use of systemic steroids; Z86.73 Personal history of transient ischemic attack (TIA), and cerebral infarction without residual deficits; Z83.3 Family history of diabetes mellitus; Z82.49 Family history of ischemic heart disease and other diseases of the circulatory system; Z87.891 Personal history of nicotine dependence; Z99.81 Dependence on supplemental oxygen; Z93.1 Gastrostomy status; Z87.01 Personal history of pneumonia (recurrent); Z68.22 Body mass index [BMI] 22.0-22.9, adult
CPT/HCPCS: 36415; 36600; 71045; 80048; 80053; 80061; 81003; 82375; 82550; 82805; 82962; 83036; 83605; 83735; 84132; 84145; 85025; 85027; 87077; 87186; 93005; 93970; 94640; 99291; C1893; J0456; J0696; J1650; J1815; J2920; J3475; J3480; J7030; J7060; J7512; J7626

== ENCOUNTER 2021-12-26 21:04 | Inpatient (IN) | payer MEDICARE, MEDICAID ==
[~2021-12-26] VITALS: Ht 162.6 cm; Wt 52.6 kg
[2021-12-26] MEDS ORDERED: IPRATROPIUM BROMIDE (0.02%) 0.5MG/2.5ML NEB HHN STA ×2 (21:15→21:21)
[2021-12-26] MEDS ORDERED: ALBUTEROL (0.083%) 2.5MG/3ML NEB HHN STA (21:21)
[2021-12-26] MEDS ORDERED: METHYLPREDNISOLONE SOD SUCC 125 MG/2 ML VIAL IV STA (21:21)
[2021-12-26] MEDS ORDERED: ALBUTEROL (0.083%) 2.5MG/3ML NEB HHN SCH (21:30)
[2021-12-26] MEDS ORDERED: ASPIRIN 81MG TABLET PO ONE (21:30)
[2021-12-26] MEDS ORDERED: PIPERACILLIN/TAZ 3.375G PREMIX 50 ML IV ONE (22:30)
[2021-12-26] MEDS ORDERED: ACETAMINOPHEN 325MG TABLET PO ONE (22:30)
[2021-12-26] MEDS ORDERED: VANCOMYCIN 1G PREMIX 200 ML IV ONE (22:30)
[2021-12-26 22:37] LABS: BG BASE EXCESS 6.8 mmol/L (-2.0-2.0); BG CARBOXYHEMOGLOBIN 0.6 % (0.5-1.5); BG DEOXYHEMOGLOBIN 18.9 % (0.0-5.0); BG FRACTION INSPIRED OXYGEN 60; BG HCO3 ACT 32.9 mmol/L (22.0-26.0); BG METHEMOGLOBIN 0.1 % (0.0-1.5); BG OXYHEMOGLOBIN 80.4 % (94.0-97.0); BG PCO2 53.5 mmHg (35.0-45.0); BG PH 7.407 (7.350-7.450); BG PO2 47.5 mmHg (75.0-100.0); BG SAMPLE SITE RIGHT RADIAL; BG TOTAL HEMOGLOBIN 12.9 g/dL (12.0-18.0); BG VENT MODE MASK - BIPAP
[2021-12-26 22:43] LABS: BASOPHILS % 0.3 % (0.0-2.0); EOSINOPHILS % 0.4 % (0.0-5.0); HEMATOCRIT. 40.6 % (36.0-48.0); HEMOGLOBIN. 12.8 g/dL (12.0-16.0); LYMPHOCYTES % 12.1 % (20.0-50.0); MEAN CORPUSCULAR HEMOGLOBIN 28.3 pg (28.0-32.0); MEAN CORPUSCULAR VOLUME 89.6 fL (81.0-99.0); MONOCYTES % 4.5 % (2.0-8.0); NEUTROPHILS % 82.7 % (40.0-76.0); PLATELET 293 x1000/uL (130-400); RED BLOOD CELL COUNT 4.53 mill/uL (4.2-5.4); RED CELL DISTRIBUTION WIDTH 16.9 % (11.6-14.6)
[2021-12-26 22:44] LABS: CHLORIDE 100 mEq/L (98-107)
[2021-12-26] MEDS ORDERED: MAGNESIUM/ALUMINUM HYDROXIDE/SIMETHICONE 30ML UDC PO PRN (23:15)
[2021-12-26] MEDS ORDERED: GUAIFENESIN 200MG/10ML SUGAR FREE UDC PO PRN (23:15)
[2021-12-26] MEDS ORDERED: ZOLPIDEM TARTRATE 5MG TABLET PO PRN (23:15)
[2021-12-26] MEDS ORDERED: IPRATROPIUM/ALBUTEROL 0.5-3(2.5)MG/3ML NEB NEB PRN (23:15)
[2021-12-26] MEDS ORDERED: CLONIDINE 0.1MG TABLET PO PRN (23:15)
[2021-12-26] MEDS ORDERED: NITROGLYCERIN 0.4MG TABLET SL SL PRN (23:15)
[2021-12-26] MEDS ORDERED: ONDANSETRON HCL 4MG/2ML INJ IV PRN (23:15)
[2021-12-26] MEDS ORDERED: ACETAMINOPHEN 325MG TABLET PO PRN ×2 (23:15)
[2021-12-26] MEDS ORDERED: KETOROLAC 15MG/ML VIAL IV PRN (23:15)
[2021-12-26] MEDS ORDERED: NALOXONE HCL 0.4MG/ML VIAL IV PRN (23:45)
[2021-12-26 23:48] LABS: BG BASE EXCESS 4.2 mmol/L (-2.0-2.0); BG CARBOXYHEMOGLOBIN 0.2 % (0.5-1.5); BG DEOXYHEMOGLOBIN 0.5 % (0.0-5.0); BG FRACTION INSPIRED OXYGEN 100; BG HCO3 ACT 28.3 mmol/L (22.0-26.0); BG METHEMOGLOBIN 0.2 % (0.0-1.5); BG OXYGEN SATURATION 99.5 % (92.0-98.5); BG OXYHEMOGLOBIN 99.1 % (94.0-97.0); BG PCO2 40.4 mmHg (35.0-45.0); BG PH 7.463 (7.350-7.450); BG PO2 440.5 mmHg (75.0-100.0); BG SAMPLE SITE LEFT RADIAL; BG TOTAL HEMOGLOBIN 12.3 g/dL (12.0-18.0); BG TOTAL RESPIRATORY RATE 18 b/min; BG VENT MODE MASK - BIPAP
[2021-12-27] VITALS (11 sets, daily range): BP systolic 100–133; BP diastolic 59–83
[2021-12-27] MEDS: DILTIAZEM HCL 60MG TABLET PO SCH ×5 (00:11→23:30)
[2021-12-27] MEDS ORDERED: VANCOMYCIN 1.25GM PMX (XELLIA) 250 ML IV NR (01:00)
[2021-12-27] MEDS: HYDROCODONE/ACETAMINOPHEN 10/325MG TABLET PO PRN ×3 (02:04→17:49)
[2021-12-27] MEDS: MEROPENEM 1,000 MG in SODIUM CHLORIDE 0.9% 100 ML IV SCH ×4 (04:12→19:45)
[2021-12-27] MEDS: IPRATROPIUM/ALBUTEROL 0.5-3(2.5)MG/3ML NEB HHN SCH ×5 (04:59→21:06)
[2021-12-27] MEDS: ENOXAPARIN 40MG/0.4ML SYR SUBCUT SCH ×2 (05:10→05:15)
[2021-12-27] MEDS: METHYLPREDNISOLONE SOD SUCC 125 MG/2 ML VIAL IV SCH ×3 (05:10→21:39)
[2021-12-27] MEDS: DOCUSATE SODIUM 100MG CAPSULE PO PRN (05:25)
[2021-12-27 06:54] LABS: HEMATOCRIT. 34.6 % (36.0-48.0); HEMOGLOBIN. 11.2 g/dL (12.0-16.0); MEAN CORPUSCULAR HEMOGLOBIN 28.7 pg (28.0-32.0); MEAN CORPUSCULAR VOLUME 88.9 fL (81.0-99.0); MEAN PLATELET VOLUME 7.1 fl (7.4-10.4); PLATELET 282 x1000/uL (130-400); RED CELL DISTRIBUTION WIDTH 17.3 % (11.6-14.6)
[2021-12-27 06:59] LABS: CHLORIDE 97 mEq/L (98-107)
[2021-12-27 07:21] LABS: CREATINE KINASE 47 IU/L (26-192); CREATINE KINASE MB FRACTION 1.1 ng/mL (0.5-3.6); PHOSPHORUS 4.4 mg/dL (2.5-4.9)
[2021-12-27] MEDS: CHOLECALCIFEROL (D3) 1000 UNIT TABLET PO SCH (09:00)
[2021-12-27] MEDS: ZINC SULFATE 220 MG ( 50 ) CAPSULE PO SCH (10:09)
[2021-12-27] MEDS: FAMOTIDINE 20MG TABLET PO SCH ×2 (10:09→20:33)
[2021-12-27] MEDS: ASCORBIC ACID 500 MG TABLET PO SCH ×2 (10:09→20:33)
[2021-12-27] MEDS ORDERED: VANCOMYCIN 750MG PREMIX 150 ML IV SCH (13:00)
[2021-12-27] MEDS ORDERED: VANCOMYCIN 750MG PMX (XELLIA) 150 ML IV SCH (13:00)
[2021-12-27 14:37] LABS: PLATELET ESTIMATE NORMAL
[2021-12-27] MEDS: VANCOMYCIN 750MG PREMIX 150 ML IV SCH (17:01)
[2021-12-27 21:23] LABS: CREATINE KINASE MB FRACTION 1.4 ng/mL (0.5-3.6)
[2021-12-28] VITALS (12 sets, daily range): BP systolic 110–147; BP diastolic 64–89
[2021-12-28] MEDS: IPRATROPIUM/ALBUTEROL 0.5-3(2.5)MG/3ML NEB HHN SCH ×6 (00:48→22:01)
[2021-12-28] MEDS: MEROPENEM 1,000 MG in SODIUM CHLORIDE 0.9% 100 ML IV SCH ×3 (01:51→17:49)
[2021-12-28] MEDS: VANCOMYCIN 750MG PREMIX 150 ML IV SCH ×2 (05:14→17:49)
[2021-12-28] MEDS: METHYLPREDNISOLONE SOD SUCC 125 MG/2 ML VIAL IV SCH ×3 (05:14→22:53)
[2021-12-28] MEDS: DILTIAZEM HCL 60MG TABLET PO SCH ×4 (05:14→22:55)
[2021-12-28] MEDS: ENOXAPARIN 40MG/0.4ML SYR SUBCUT SCH ×2 (05:16→06:00)
[2021-12-28 06:44] LABS: HEMATOCRIT 28.3 % (36.0-48.0); HEMOGLOBIN 9.4 g/dL (12.0-16.0); MEAN CORPUSCULAR HEMOGLOBIN 29.4 pg (28.0-32.0); MEAN CORPUSCULAR VOLUME 88.8 fL (81.0-99.0); PLATELET 251 x1000/uL (130-400); RED BLOOD CELL COUNT 3.18 mill/uL (4.2-5.4); RED CELL DISTRIBUTION WIDTH 17.1 % (11.6-14.6)
[2021-12-28] MEDS: HYDROCODONE/ACETAMINOPHEN 10/325MG TABLET PO PRN ×2 (06:44→13:13)
[2021-12-28 07:31] LABS: CHLORIDE 101 mEq/L (98-107)
[2021-12-28] MEDS: ZINC SULFATE 220 MG ( 50 ) CAPSULE PO SCH (09:48)
[2021-12-28] MEDS: CHOLECALCIFEROL (D3) 1000 UNIT TABLET PO SCH (09:48)
[2021-12-28] MEDS: FAMOTIDINE 20MG TABLET PO SCH ×2 (09:48→21:14)
[2021-12-28] MEDS: ASCORBIC ACID 500 MG TABLET PO SCH ×2 (09:48→21:14)
[2021-12-29] VITALS (15 sets, daily range): BP systolic 124–154; BP diastolic 63–88
[2021-12-29] MEDS: IPRATROPIUM/ALBUTEROL 0.5-3(2.5)MG/3ML NEB HHN SCH ×7 (01:53→23:47)
[2021-12-29] MEDS: MEROPENEM 1,000 MG in SODIUM CHLORIDE 0.9% 100 ML IV SCH ×3 (02:00→18:02)
[2021-12-29] MEDS: HYDROCODONE/ACETAMINOPHEN 10/325MG TABLET PO PRN ×3 (02:22→20:48)
[2021-12-29 04:59] LABS: HEMATOCRIT 29.7 % (36.0-48.0); HEMOGLOBIN 9.4 g/dL (12.0-16.0); MEAN CORPUSCULAR HEMOGLOBIN 28.4 pg (28.0-32.0); MEAN CORPUSCULAR VOLUME 89.9 fL (81.0-99.0); PLATELET 253 x1000/uL (130-400); RED CELL DISTRIBUTION WIDTH 17.3 % (11.6-14.6)
[2021-12-29] MEDS: METHYLPREDNISOLONE SOD SUCC 125 MG/2 ML VIAL IV SCH ×3 (05:24→21:56)
[2021-12-29] MEDS: DILTIAZEM HCL 60MG TABLET PO SCH ×4 (05:25→23:23)
[2021-12-29] MEDS: VANCOMYCIN 750MG PREMIX 150 ML IV SCH (05:25)
[2021-12-29] MEDS: ENOXAPARIN 40MG/0.4ML SYR SUBCUT SCH (05:25)
[2021-12-29 06:22] LABS: CHLORIDE 96 mEq/L (98-107)
[2021-12-29] MEDS ORDERED: POTASSIUM CHLORIDE 20MEQ TABLET SR PO NR (08:15)
[2021-12-29] MEDS: CHOLECALCIFEROL (D3) 1000 UNIT TABLET PO SCH (08:59)
[2021-12-29] MEDS: ZINC SULFATE 220 MG ( 50 ) CAPSULE PO SCH (08:59)
[2021-12-29] MEDS: ASCORBIC ACID 500 MG TABLET PO SCH ×2 (08:59→20:47)
[2021-12-29] MEDS: FAMOTIDINE 20MG TABLET PO SCH ×2 (08:59→20:47)
[2021-12-29] MEDS: VANCOMYCIN 500MG PREMIX 100 ML IV SCH (20:48)
[2021-12-30] VITALS (12 sets, daily range): BP systolic 122–160; BP diastolic 65–90
[2021-12-30] MEDS: MEROPENEM 1,000 MG in SODIUM CHLORIDE 0.9% 100 ML IV SCH ×3 (02:11→19:00)
[2021-12-30] MEDS: IPRATROPIUM/ALBUTEROL 0.5-3(2.5)MG/3ML NEB HHN SCH ×6 (03:35→21:06)
[2021-12-30 05:36] LABS: HEMATOCRIT 31.7 % (36.0-48.0); HEMOGLOBIN 10.4 g/dL (12.0-16.0); MEAN CORPUSCULAR HEMOGLOBIN 29.1 pg (28.0-32.0); MEAN CORPUSCULAR VOLUME 88.4 fL (81.0-99.0); PLATELET 299 x1000/uL (130-400); RED BLOOD CELL COUNT 3.58 mill/uL (4.2-5.4); RED CELL DISTRIBUTION WIDTH 17.1 % (11.6-14.6)
[2021-12-30] MEDS: METHYLPREDNISOLONE SOD SUCC 125 MG/2 ML VIAL IV SCH ×3 (05:52→23:01)
[2021-12-30] MEDS: DILTIAZEM HCL 60MG TABLET PO SCH ×3 (05:53→18:48)
[2021-12-30 05:54] LABS: CHLORIDE 98 mEq/L (98-107)
[2021-12-30] MEDS: ENOXAPARIN 40MG/0.4ML SYR SUBCUT SCH (05:54)
[2021-12-30] MEDS: ZINC SULFATE 220 MG ( 50 ) CAPSULE PO SCH (09:58)
[2021-12-30] MEDS: CHOLECALCIFEROL (D3) 1000 UNIT TABLET PO SCH (09:58)
[2021-12-30] MEDS: ASCORBIC ACID 500 MG TABLET PO SCH ×2 (09:58→20:47)
[2021-12-30] MEDS: VANCOMYCIN 500MG PREMIX 100 ML IV SCH ×2 (09:58→20:47)
[2021-12-30] MEDS: FAMOTIDINE 20MG TABLET PO SCH ×2 (09:58→20:47)
[2021-12-30] MEDS: HYDROCODONE/ACETAMINOPHEN 10/325MG TABLET PO PRN ×2 (09:59→20:48)
[2021-12-31] VITALS (13 sets, daily range): BP systolic 139–160; BP diastolic 76–94
[2021-12-31] MEDS: IPRATROPIUM/ALBUTEROL 0.5-3(2.5)MG/3ML NEB HHN SCH ×5 (00:58→21:24)
[2021-12-31] MEDS: MEROPENEM 1,000 MG in SODIUM CHLORIDE 0.9% 100 ML IV SCH ×3 (01:24→18:11)
[2021-12-31] MEDS: ENOXAPARIN 40MG/0.4ML SYR SUBCUT SCH (06:00)
[2021-12-31] MEDS: METHYLPREDNISOLONE SOD SUCC 125 MG/2 ML VIAL IV SCH ×3 (06:28→21:30)
[2021-12-31] MEDS: DILTIAZEM HCL 60MG TABLET PO SCH ×4 (06:29→18:12)
[2021-12-31] MEDS: HYDROCODONE/ACETAMINOPHEN 10/325MG TABLET PO PRN ×3 (06:30→18:17)
[2021-12-31] MEDS: FAMOTIDINE 20MG TABLET PO SCH ×2 (08:41→21:30)
[2021-12-31] MEDS: ASCORBIC ACID 500 MG TABLET PO SCH ×2 (08:41→21:30)
[2021-12-31] MEDS: CHOLECALCIFEROL (D3) 1000 UNIT TABLET PO SCH (08:41)
[2021-12-31] MEDS: VANCOMYCIN 500MG PREMIX 100 ML IV SCH ×2 (08:41→21:30)
[2021-12-31] MEDS: ZINC SULFATE 220 MG ( 50 ) CAPSULE PO SCH (08:41)
[2021-12-31] MEDS ORDERED: THEOPHYLLINE ANHYDROUS 80 MG/15 ML 120ML PO NR (14:45)
[2021-12-31] MEDS: THEOPHYLLINE ANHYDROUS 80 MG/15 ML 120ML PO SCH ×2 (17:00→21:34)
[2022-01-01] VITALS (17 sets, daily range): BP systolic 120–156; BP diastolic 73–92
[2022-01-01] MEDS: DILTIAZEM HCL 60MG TABLET PO SCH ×2 (00:12→06:20)
[2022-01-01] MEDS: HYDROCODONE/ACETAMINOPHEN 10/325MG TABLET PO PRN ×4 (00:50→23:17)
[2022-01-01] MEDS: IPRATROPIUM/ALBUTEROL 0.5-3(2.5)MG/3ML NEB HHN SCH ×6 (01:20→21:09)
[2022-01-01] MEDS: ENOXAPARIN 40MG/0.4ML SYR SUBCUT SCH (06:00)
[2022-01-01] MEDS: METHYLPREDNISOLONE SOD SUCC 125 MG/2 ML VIAL IV SCH (06:20)
[2022-01-01] MEDS: THEOPHYLLINE ANHYDROUS 80 MG/15 ML 120ML PO SCH ×3 (06:21→21:38)
[2022-01-01] MEDS ORDERED: CLONIDINE 0.1MG TABLET PO PRN (08:00)
[2022-01-01] MEDS: CHOLECALCIFEROL (D3) 1000 UNIT TABLET PO SCH (08:43)
[2022-01-01] MEDS: ASCORBIC ACID 500 MG TABLET PO SCH ×2 (08:43→21:38)
[2022-01-01] MEDS: ZINC SULFATE 220 MG ( 50 ) CAPSULE PO SCH (08:43)
[2022-01-01] MEDS: FAMOTIDINE 20MG TABLET PO SCH ×2 (08:43→21:38)
[2022-01-01] MEDS: DOCUSATE SODIUM 100MG CAPSULE PO PRN (08:43)
[2022-01-01] MEDS ORDERED: ALPRAZOLAM 0.25 MG TABLET PO SCH (10:00)
[2022-01-01] MEDS ORDERED: NALOXONE HCL 0.4MG/ML VIAL IV PRN (10:00)
[2022-01-01] MEDS: DILTIAZEM HCL 90MG TABLET PO SCH ×3 (12:25→23:12)
[2022-01-01] MEDS: ALPRAZOLAM 0.25 MG TABLET PO SCH ×2 (14:00→21:38)
[2022-01-01] MEDS: METHYLPREDNISOLONE SOD SUCC 40 MG/ML VIAL IV SCH ×2 (14:21→21:38)
[2022-01-02] VITALS (10 sets, daily range): BP systolic 109–149; BP diastolic 62–80
[2022-01-02] MEDS: IPRATROPIUM/ALBUTEROL 0.5-3(2.5)MG/3ML NEB HHN SCH ×5 (01:29→16:16)
[2022-01-02] MEDS: ENOXAPARIN 40MG/0.4ML SYR SUBCUT SCH (06:00)
[2022-01-02] MEDS: ALPRAZOLAM 0.25 MG TABLET PO SCH ×2 (06:08→13:28)
[2022-01-02] MEDS: DILTIAZEM HCL 90MG TABLET PO SCH ×2 (06:12→13:06)
[2022-01-02] MEDS: METHYLPREDNISOLONE SOD SUCC 40 MG/ML VIAL IV SCH ×2 (06:12→13:28)
[2022-01-02] MEDS: THEOPHYLLINE ANHYDROUS 80 MG/15 ML 120ML PO SCH (06:13)
[2022-01-02] MEDS ORDERED: METOPROLOL TARTRATE 25MG TABLET PO SCH (08:34)
[2022-01-02] MEDS: CHOLECALCIFEROL (D3) 1000 UNIT TABLET PO SCH (08:35)
[2022-01-02] MEDS: FAMOTIDINE 20MG TABLET PO SCH (08:35)
[2022-01-02] MEDS: ZINC SULFATE 220 MG ( 50 ) CAPSULE PO SCH (08:35)
[2022-01-02] MEDS: ASCORBIC ACID 500 MG TABLET PO SCH (08:35)
[2022-01-02] MEDS ORDERED: LORAZEPAM 2MG/ML CPJ IV PRN (10:00)
[2022-01-02] MEDS: HYDROCODONE/ACETAMINOPHEN 10/325MG TABLET PO PRN (11:05)
== END 2022-01-02 18:00 | DRG 193 ==
LOC: ER 21:04 → MICUSO 22:41 → 5EST 12-27 04:44 → 3WST 12-30 10:27
PROVIDERS: ADMIT Internal Medicine; ATTEND Internal Medicine
PROC: 5A09457 Assistance with Respiratory Ventilation, 24-96 Consecutive Hours, Continuous Positive Airway Pressure (ICD-10-PCS; 2021-12-26)
PROC: 02HV33Z Insertion of Infusion Device into Superior Vena Cava, Percutaneous Approach (ICD-10-PCS; principal; 2021-12-27)
PROC: B548ZZA Ultrasonography of Superior Vena Cava, Guidance (ICD-10-PCS; 2021-12-27)
PROC: 5A09457 Assistance with Respiratory Ventilation, 24-96 Consecutive Hours, Continuous Positive Airway Pressure (ICD-10-PCS; 2021-12-28)
PROC: 5A09357 Assistance with Respiratory Ventilation, Less than 24 Consecutive Hours, Continuous Positive Airway Pressure (ICD-10-PCS; 2021-12-30)
PROC: 5A09357 Assistance with Respiratory Ventilation, Less than 24 Consecutive Hours, Continuous Positive Airway Pressure (ICD-10-PCS; 2021-12-31)
PROC: 5A09357 Assistance with Respiratory Ventilation, Less than 24 Consecutive Hours, Continuous Positive Airway Pressure (ICD-10-PCS; 2022-01-02)
DX: J18.9 Pneumonia, unspecified organism (principal); J96.21 Acute and chronic respiratory failure with hypoxia; L89.153 Pressure ulcer of sacral region, stage 3; J96.22 Acute and chronic respiratory failure with hypercapnia; J44.1 Chronic obstructive pulmonary disease with (acute) exacerbation; E87.4 Mixed disorder of acid-base balance; I13.0 Hypertensive heart and chronic kidney disease with heart failure and stage 1 through stage 4 chronic kidney disease, or unspecified chronic kidney disease; E44.0 Moderate protein-calorie malnutrition; I50.22 Chronic systolic (congestive) heart failure; M48.54XA Collapsed vertebra, not elsewhere classified, thoracic region, initial encounter for fracture; J44.0 Chronic obstructive pulmonary disease with (acute) lower respiratory infection; Z68.1 Body mass index [BMI] 19.9 or less, adult; Z20.822 Contact with and (suspected) exposure to COVID-19; R91.8 Other nonspecific abnormal finding of lung field; N18.9 Chronic kidney disease, unspecified; Y95 Nosocomial condition; F41.9 Anxiety disorder, unspecified; E11.22 Type 2 diabetes mellitus with diabetic chronic kidney disease; E03.9 Hypothyroidism, unspecified; Z79.899 Other long term (current) drug therapy; Z99.81 Dependence on supplemental oxygen
CPT/HCPCS: 36415; 36573; 36600; 71045; 80048; 80053; 80202; 82040; 82375; 82550; 82553; 82805; 83605; 83735; 83880; 84100; 84134; 84484; 85025; 85027; 87426; 93005; 93970; 94640; 94660; 99291; A6261; C1725; J1650; J1885; J2060; J2185; J2405; J2543; J2920; J2930; J3370; J7050

== ENCOUNTER 2022-01-06 10:14 | Emergency (ER) | payer MEDICARE, MEDICAID ==
[~2022-01-06] VITALS: Ht 162.6 cm; Wt 54.5 kg
[~2022-01-06 10:14] MED LIST changes: +ETOMIDATE 2MG/ML 10ML VIAL IV ONE; +SODIUM CHLORIDE 0.9% 10ML VIAL ONE; +VECURONIUM BROMIDE 10 MG/VIAL IV ONE
[2022-01-06] MEDS ORDERED: KETAMINE HCL 50 MG/ML 10ML IV NR (10:28)
[2022-01-06] MEDS ORDERED: NOREPINEPHRINE 8MG/250ML PMX 250 ML IV NR (10:30)
[2022-01-06] MEDS ORDERED: FENTANYL 2500MCG/250ML PMX 250 ML IV ONE (10:45)
[2022-01-06] MEDS ORDERED: NOREPINEPHRINE 8MG/250ML PMX 250 ML IV ONE (10:45)
[2022-01-06] MEDS ORDERED: MIDAZOLAM 100MG/100ML PMX 100 ML IV PRN (10:45)
[2022-01-06] MEDS ORDERED: MIDAZOLAM HCL 100 MG in SODIUM CHLORIDE 0.9% 80 ML IV PRN (11:00)
[2022-01-06] MEDS ORDERED: VECURONIUM BROMIDE 10 MG/VIAL IV ONE (11:15)
[2022-01-06] MEDS ORDERED: KETAMINE HCL 50 MG/ML 10ML IV ONE (11:15)
[2022-01-06 11:25] VITALS: BP 0/0
[2022-01-06 11:37] LABS: HEMATOCRIT. 26.3 % (36.0-48.0); HEMOGLOBIN. 8.4 g/dL (12.0-16.0); MEAN CORPUSCULAR HEMOGLOBIN 29.1 pg (28.0-32.0); MEAN CORPUSCULAR VOLUME 91.2 fL (81.0-99.0); MEAN PLATELET VOLUME 9.1 fl (7.4-10.4); RED BLOOD CELL COUNT 2.88 mill/uL (4.2-5.4); RED CELL DISTRIBUTION WIDTH 18.7 % (11.6-14.6)
[2022-01-06 11:40] LABS: CHLORIDE 95 mEq/L (98-107)
[2022-01-06 11:44] LABS: PLATELET 36 x1000/uL (130-400)
[2022-01-06 12:20] LABS: NUCLEATED RED BLOOD CELLS 30 /100 WBC
[2022-01-06 12:22] LABS: PLATELET ESTIMATE MARKEDLY DECREASED
== END 2022-01-06 11:48 ==
LOC: ER 10:21 → CANBEDREQ 11:54
DX: J96.21 Acute and chronic respiratory failure with hypoxia (principal); I46.9 Cardiac arrest, cause unspecified; D64.9 Anemia, unspecified; F41.9 Anxiety disorder, unspecified; J44.9 Chronic obstructive pulmonary disease, unspecified; I10 Essential (primary) hypertension; Z79.899 Other long term (current) drug therapy
CPT/HCPCS: 31500; 36415; 71045; 80053; 82962; 83690; 83880; 84484; 85025; 87040; 87077; 87186; 93005; 99291; J3010; J3490; 94002; J2250